=== PATIENT | male | born 1945 | race Two or more races ===

== ENCOUNTER → 2019-12-10 10:16 | Outpatient (BNVA) | payer MEDICARE, OTHER, SELFPAY | PROVIDERS: PCP Physician Assistant; Referring Provider Physician Assistant; Visit Provider Nurse Practitioner Family | DX: I48.91 Unspecified atrial fibrillation (principal); I10 Essential (primary) hypertension; I45.10 Unspecified right bundle-branch block; I42.9 Cardiomyopathy, unspecified | CPT/HCPCS: 99214 ==

== ENCOUNTER → 2020-01-06 08:03 | Outpatient (REF) | payer MEDICARE, OTHER, SELFPAY ==
--- NOTE | 2020-01-06 08:09 | ECG_ITS ---
Hook-up date: 2020-01-06 09:59:00 Duration: 23:47:00 Test Indications: UNSPEC. AFIB Medications: 636604 QRS complexes 28 Ventricular ectopics which represent <1 % of total QRS comp. * Supraventricular ectopics which represent % of total QRS comp. * Paced QRS complexs which represent % of total QRS comp. VENTRICULAR ECTOPY 28 Isolated 0 Bigeminal Cycles 0 Couplets 0 Runs 0 Beats in Runs * Beats LONGEST at * BPM at :: -- * Beats FASTEST at * BPM at :: -- SUPRAVENTRICULAR ECTOPY * Isolated * Couplets * Runs * Beats in Runs * Beats LONGEST at * BPM at :: -- * Beats FASTEST at * BPM at :: -- HEART RATES 35 MIN at 02:02:59 2020-01-07 76 AVG 178 MAX at 10:02:16 2020-01-06 LONGEST RR 2.2400 secs at 03:26:22 2020-01-07 S-T LEVELS Channel 1 - 128 mm at 09:59:00 2020-01-06 - 128 mm at 09:59:00 2020-01-06 Channel 2 - 128 mm at 09:59:00 2020-01-06 - 128 mm at 09:59:00 2020-01-06 Channel 3 - 128 mm at 02:91:81 -- - 128 mm at 02:91:81 Basic rhythm Atrial fibrillation No significant pauses Baseline BBB Rare Premature ventricular complexes Adequate rate control with avergae HR if 76 bpm No diary submitted Referred By: Madeleine Hernandez Overread By: IVANNA OSUNA MD
== END ==
LOC: HO.CARD 08:03
PROVIDERS: PCP Physician Assistant; Visit Provider Nurse Practitioner Family
DX: I48.91 Unspecified atrial fibrillation (principal)
CPT/HCPCS: 93225; 93226

== ENCOUNTER → 2020-01-24 09:59 | Outpatient (BNVA) | payer MEDICARE, OTHER, SELFPAY | PROVIDERS: PCP Physician Assistant; Referring Provider Physician Assistant; Visit Provider Nurse Practitioner Family | DX: I42.9 Cardiomyopathy, unspecified (principal); I45.10 Unspecified right bundle-branch block; I48.91 Unspecified atrial fibrillation; I10 Essential (primary) hypertension; Z79.01 Long term (current) use of anticoagulants; Z79.899 Other long term (current) drug therapy | CPT/HCPCS: 99212 ==

== ENCOUNTER → 2020-02-07 09:44 | Outpatient (REF) | payer MEDICARE, SELFPAY | LOC: HO.CARD 09:44 | PROVIDERS: Visit Provider Nurse Practitioner Family | DX: Z13.89 Encounter for screening for other disorder (principal) ==

== ENCOUNTER → 2020-02-18 09:07 | Outpatient (REF) | payer MEDICARE, SELFPAY ==
--- NOTE | 2020-02-18 09:30 | CA_ITS ---
Acquisition Time: 2020-02-18 09:38:43 Total Exercise Time: 00:02:00 Test Indications: afib Medications: see chart Protocol: LEXISCAN Max HR: 151 BPM 102% of Pred: 147 BPM Max BP: 190/068 mmHG Max Work Load: 1.0 METS Pharmacological stress test using lexiscan while sitting, pt tolerated well denies any anginal sx. EKG with a-fib and isolated PVC. Nuclear images to follow. Normotensive response to test. Test reviewed with Dr. Samuel Referred By: Madeleine Hernandez Overread By: Angel Luis Chand
--- NOTE | 2020-02-18 10:00 | NM_ITS ---
Lexiscan Myocardial perfusion study Indication: Cardiomyopathy, assess for coronary disease and ischemia Technique: The patient was brought in for a Lexiscan perfusion study on 02/18/2020 and was injected 0.4 mg of Lexiscan intravenously. Within a minute of this injection 25 mCi of sestamibi was given intravenously. Images were obtained using the SPECT gamma camera interlaced with the gating device. Images were obtained in supine position. Resting perfusion study was performed on 03/04/2020. Patient was administered 25 mCi of sestamibi intravenously at rest. Images were then obtained in supine position. Total DLP 62mGy-cm. Images were processed with the software and compared side to side in short axis, horizontal long axis and vertical long axis views. Findings: Raw acquisition was reviewed. The stress perfusion study showed diminished tracer uptake along the inferior wall mostly towards the basal aspect. With CT attenuation correction, there is improvement suggesting diaphragmatic artifact. The gated study shows diminished LV systolic function with calculated LVEF of 32%. LV cavity is dilated in size. The gated study shows globally diminished wall thickening and contraction of segments. Resting study shows diminished tracer uptake along the basal inferior wall improving with CT attenuation correction and hence suggesting diaphragmatic artifact. Gating at rest reveals globally diminished wall motion with ejection fraction at 32 %. The findings are consistent with no definite reversible or fixed perfusion defects. NM/NM cardiolite stress test Impression: 1. Myocardial perfusion imaging study shows likely normal myocardial perfusion. No definitive evidence of any ischemia or infarction. 2. Gated LVEF is diminished. 32% during stress and rest. 3. Transient ischemic dilatation not present but the LV cavity is dilated. EKG component of the test reported separately.
== END ==
LOC: HO.CARD 09:07
PROVIDERS: PCP Physician Assistant; Visit Provider Nurse Practitioner Family
DX: I48.91 Unspecified atrial fibrillation (principal); I45.10 Unspecified right bundle-branch block; I42.9 Cardiomyopathy, unspecified
CPT/HCPCS: 78452; 93017; A9500; J0280; J2785

== ENCOUNTER → 2021-06-30 13:03 | Outpatient (BNVA) | payer MEDICARE, SELFPAY | PROVIDERS: PCP Physician Assistant; Referring Provider Physician Assistant; Visit Provider Nurse Practitioner Family | DX: I42.9 Cardiomyopathy, unspecified (principal); I45.10 Unspecified right bundle-branch block; I48.21 Permanent atrial fibrillation; I10 Essential (primary) hypertension | CPT/HCPCS: 93005; 99212 ==

== ENCOUNTER → 2021-07-09 10:40 | Outpatient (REF) | payer MEDICARE, SELFPAY ==
--- NOTE | 2021-07-09 10:45 | HM_ITS ---
Conclusion: 1. Patient was monitored for total period of 2 days and 22 hours 2. Baseline with atrial fibrillation with average heart of 78 beats per minute, adequate rate control 3. Multiple pauses noted with longest pause of 2.78 seconds which is acceptable 4. Total of 2513 PVCs accounting for 0.76% accounting for occasional PVCs 5. One fifteen beat run of wide complex which is suggestive aberrant conduction 6. No patient reported events MTDD
== END ==
LOC: HO.CARD 10:40
PROVIDERS: Visit Provider Nurse Practitioner Family
DX: I45.10 Unspecified right bundle-branch block (principal); I48.21 Permanent atrial fibrillation
CPT/HCPCS: 93242

== ENCOUNTER 2022-08-07 11:53 | Inpatient (IN) | payer MEDICARE, OTHER, SELFPAY ==
[2022-08-07] VITALS (7 sets, daily range): BP systolic 101–186; BP diastolic 58–112; PULSE 71–115; RESP 13–20; TEMP 36.4–36.8; O2SAT 96–98; BMI 22.2
--- NOTE | 2022-08-07 | ECG_ITS ---
Test Reason : STROKE Blood Pressure : / mmHG Vent. Rate : 107 BPM Atrial Rate : 000 BPM P-R Int : 000 ms QRS Dur : 136 ms QT Int : 394 ms P-R-T Axes : 000 074 009 degrees QTc Int : 525 ms Atrial fibrillation with rapid ventricular response with premature ventricular or aberrantly conducted complexes Right bundle branch block Abnormal ECG When compared with ECG of 20-FEB-2011 17:04, Atrial fibrillation has replaced Sinus rhythm Right bundle branch block is now Present Referred By: Syeda Dobbs Electronically Signed By:Gustavo Nazario
--- NOTE | ~2022-08-07 | CT_ITS ---
EXAMINATION: CT ABDOMEN AND PELVIS WITHOUT CONTRAST CLINICAL INFORMATION: Evaluate pelvic mass COMPARISON: Previous CT of the abdomen and pelvis November 2021 and renal and bladder ultrasound August 2022 TECHNIQUE: Multidetector volumetric imaging was performed from the superior aspect of the liver through the pubic symphysis. Sagittal and coronal reformatted images were obtained on the technologist's workstation. This CT examination was performed using dose optimization techniques as appropriate, variously including the following: *Automated exposure control *Adjustment of mA and/or kV according to patient size (this includes techniques or standardized protocols for targeted exams where dose is matched to indication/reason for exam; i.e. extremities or head) *Use of iterative reconstruction technique DLP: 363 mGy-cm FINDINGS: LUNG BASES: The lung bases are clear. The heart is enlarged. There is a small pericardial effusion. LIVER, GALLBLADDER, AND BILIARY TREE: The liver is normal in size, shape, and attenuation. No focal hepatic lesion or biliary ductal dilatation is present. The gallbladder is unremarkable with no evidence of radiopaque gallstones, gallbladder wall thickening, or obvious pericholecystic inflammatory changes. PANCREAS: Unremarkable. SPLEEN: Unremarkable. ADRENAL GLANDS: Unremarkable. KIDNEYS AND URETERS: There is severe bilateral hydronephrosis and ureteral dilatation down to the bladder. This is new or increased from previous CT from 2018. There is a 4 mm stone lower pole of the right kidney. Question right UVJ versus bladder stones. No left ureteral stone is seen. BLADDER: There is a Stein catheter in the bladder. There is a small amount of fluid and air seen in the bladder probably related to Stein catheter placement. There is diffuse bladder wall thickening. There is stranding of the perivesicular fat. There are 2 calcifications in the right lateral bladder near the right UVJ region suggestive of bladder /right UVJ stones. The prostate gland is enlarged and protrudes into the base of the bladder. GASTROINTESTINAL TRACT: Diverticulosis of the colon. No evidence of diverticulitis. Small and large bowel is otherwise normal. ABDOMINAL WALL: Small bilateral inguinal hernias containing fat. Small umbilical hernia containing fat. LYMPH NODES: Normal. VASCULAR: Unremarkable. PELVIC VISCERA: The prostate gland is enlarged and protrudes into the base of the bladder. The prostate gland measures 5.4 x 5.8 cm in AP and transverse dimension. OSSEOUS STRUCTURES: There are degenerative changes of the spine. CT/CT abdomen pelvis wo IV con IMPRESSION: Severe bilateral hydronephrosis and ureteral dilatation down to the bladder. 4 mm stone in the lower pole of the right kidney. 2 right-sided bladder stones versus right UVJ stone measuring 4 and 5 mm. No left ureteral stone. Diffuse bladder wall thickening and stranding of the perivesicular fat. Infectious, inflammatory and neoplastic bladder process should be considered. Enlarged prostate gland protrudes into the base of the bladder. Diverticulosis. Fleischner guidelines were followed.
--- NOTE | ~2022-08-07 | US_ITS ---
EXAMINATION: US RETROPERITONEAL LIMITED (RENAL ONLY) CLINICAL INFORMATION: Acute kidney injury, evaluate for obstruction/hydronephrosis. COMPARISON: CT abdomen/pelvis 11/25/2017. TECHNIQUE: Real-time imaging of the kidneys. FINDINGS: RIGHT KIDNEY: 13 x 5.7 x 6 cm (SAG x AP x TRV). The kidney is normal in size, contour, and echogenicity. Renal cortical thickness is normal. No renal calculi or focal parenchymal lesions. Moderate to severe hydronephrosis. LEFT KIDNEY: 12.4 x 6 x 5.7 cm (SAG x AP x TRV). The kidney is normal in size, contour, and echogenicity. Renal cortical thickness is normal. No renal calculi or hydronephrosis. There is a 1.1 cm simple cyst in the midpole, for which no imaging follow-up is recommended. OTHER FINDINGS: Urinary bladder is not well evaluated due to underdistention, Stein catheter in place. There is a 4.7 x 5 x 5.6 cm mass posterior to the urinary bladder. US/US renal BI IMPRESSION: 1. Moderate to severe right-sided hydronephrosis. 2. There is a 5.6 cm mass posterior to the urinary bladder, which is not well evaluated on this examination. The prostate gland is not confidentially identified as a separate structure in this examination, and the mass could represent an enlarged prostate. Recommend further evaluation with a CT abdomen/pelvis.
--- NOTE | ~2022-08-07 | FL_ITS ---
EXAMINATION: XR FLUOROSCOPY WITH IMAGES CLINICAL INFORMATION: Stent placement COMPARISON: CT abdomen and pelvis 08/08/2022, renal ultrasound 08/07/2022. TECHNIQUE: Fluoroscopy Supervised By: Dr. Nash Rivera. Fluoroscopy Time: 2 minutes 10 seconds. Cumulative Dose: 25.21 mGy. Images: 1. FINDINGS: There is a guidewire in the right urinary tract with proximal end overlying the collecting system. FL/FL guidance in OR IMPRESSION: Fluoroscopy for urologic procedure.
--- NOTE | ~2022-08-07 | CT_ITS ---
EXAMINATION: CT ABDOMEN AND PELVIS WITHOUT CONTRAST CLINICAL INFORMATION: Hydronephrosis COMPARISON: Renal ultrasound August [address] of the abdomen and pelvis August 2022 TECHNIQUE: Multidetector volumetric imaging was performed from the superior aspect of the liver through the pubic symphysis. Sagittal and coronal reformatted images were obtained on the technologist's workstation. This CT examination was performed using dose optimization techniques as appropriate, variously including the following: *Automated exposure control *Adjustment of mA and/or kV according to patient size (this includes techniques or standardized protocols for targeted exams where dose is matched to indication/reason for exam; i.e. extremities or head) *Use of iterative reconstruction technique DLP: 411 mGy-cm FINDINGS: LUNG BASES: The lung bases are clear. Enlarged heart and small pericardial effusion. LIVER, GALLBLADDER, AND BILIARY TREE: The liver is normal in size, shape, and attenuation. No focal hepatic lesion or biliary ductal dilatation is present. The gallbladder contracted. PANCREAS: Unremarkable. SPLEEN: Unremarkable. ADRENAL GLANDS: Unremarkable. KIDNEYS AND URETERS: New right internal ureteral stent in satisfactory position. Interval decrease in right hydronephrosis and ureteral dilatation. 4 mm stone in the right lower pole. Moderate left hydronephrosis and ureteral dilatation down to the bladder. Is similar to previous exam. BLADDER: Stein catheter in the bladder. Small amount of fluid and air in the bladder. Diffuse bladder wall thickening. Stranding of the perivesicular fat. New 3 mm calcification in the left lower lateral probably representing a stone as opposed to bladder wall calcification axial image 67 series 2.. Enlarged prostate gland that protrudes into the base of the bladder. GASTROINTESTINAL TRACT: Constipation. Mild diverticulosis. No evidence of diverticulitis. Normal appendix. Normal small bowel. Normal stomach. ABDOMINAL WALL: Small bilateral inguinal hernias containing fat. LYMPH NODES: Small retroperitoneal lymph nodes in the abdomen and pelvis. No enlarged lymph nodes. No ascites. VASCULAR: Atherosclerotic disease. No aneurysm. PELVIC VISCERA: The prostate gland is enlarged and protrudes into the base of the bladder. OSSEOUS STRUCTURES: Degenerative changes of the spine and hip joints. No fracture or bone lesion. CT/CT abdomen pelvis wo IV con IMPRESSION: New right internal ureteral stent in satisfactory position. Interval decrease in right hydronephrosis and ureteral dilatation. 4 mm right lower pole renal stone. Stable moderate left hydronephrosis and ureteral dilatation down to the bladder. Stein catheter in the bladder. Diffuse bladder wall thickening and stranding of the perivesicular fat. Enlarged prostate gland that protrudes into the base of the bladder. New 3 mm calcification in the left lower lateral bladder probably representing a stone as opposed to bladder wall calcification. Constipation and diverticulosis. Fleischner guidelines were followed.
--- NOTE | ~2022-08-07 | MR_ITS ---
EXAMINATION: MR BRAIN WITHOUT CONTRAST CLINICAL INFORMATION: Aphasia. Rule out stroke. COMPARISON: CT dated 08/07/2022. TECHNIQUE: Multiplanar, multisequence imaging of the brain was performed without contrast. FINDINGS: There are two small infarcts in the inferior left occipital lobe. Cystic encephalomalacia lined with chronic hemosiderin staining and adjacent gliosis also noted in the inferomedial left occipital lobe due to a chronic infarct. There are scattered chronic microhemorrhages in the deep hall matter structures and periventricular white matter. The ventricles are normal in size. No mass effect or midline shift is seen. Moderate small vessel ischemic changes noted in the cerebral white matter. There are scattered chronic lacunar infarcts in the deep hall matter structures and in the external capsules. No extra-axial fluid collections are seen. The brainstem and cerebellum are normal. The craniovertebral junction, marrow signal, and midline structures are normal. The major intracranial flow voids at the level of the [place] are preserved. The dural venous sinus flow voids are maintained. The mastoid air cells are well aerated. Mild ethmoid sinus mucosal thickening noted. MR/MR head/brain wo con IMPRESSION: Two small acute infarcts in the inferior left occipital lobe. Cystic encephalomalacia in the left occipital lobe with peripheral hemosiderin staining and gliosis. Scattered chronic lacunar infarcts in the deep hall matter structures and external capsules. Moderate chronic white matter microangiopathy.
--- NOTE | ~2022-08-07 | US_ITS ---
EXAMINATION: US RETROPERITONEAL LIMITED (RENAL ONLY) CLINICAL INFORMATION: Persistent elevation in creatinine. Follow-up hydronephrosis COMPARISON: CT abdomen and pelvis 08/08/2022. Renal ultrasound 08/07/2022. Fluoroscopy exam 08/08/2022 TECHNIQUE: Real-time imaging of the kidneys. FINDINGS: RIGHT KIDNEY: 11.9 x 5.7 x 7.0 cm (SAG x AP x TRV). The kidney is normal in size, contour, and echogenicity. Renal cortical thickness is normal. There is still moderate right hydronephrosis. This is minimally improved from prior exam. There is a stent seen in the right renal collecting system. Right renal stone in the lower pole not well appreciated. LEFT KIDNEY: 12.7 x 6.0 x 5.4 cm (SAG x AP x TRV). The kidney is normal in size, contour, and echogenicity. Renal cortical thickness is normal. There is still severe left hydronephrosis. There is dilatation of the visualized left proximal ureter. There is a small cyst in the lateral midpole. No renal calculi. US/US renal BI IMPRESSION: Persistent moderate right hydronephrosis minimally improved from previous exams. Stent seen in the right renal collecting system. Severe left hydronephrosis unchanged.
--- NOTE | ~2022-08-07 | CT_ITS ---
EXAMINATION: CT HEAD WITHOUT CONTRAST CLINICAL INFORMATION: Right MCA stroke. Question expressive aphasia. COMPARISON: None available. TECHNIQUE: Contiguous axial imaging was performed from the skull base to vertex without intravenous administration of contrast. This CT examination was performed using dose optimization techniques as appropriate, variously including the following: *Automated exposure control *Adjustment of mA and/or kV according to patient size (this includes techniques or standardized protocols for targeted exams where dose is matched to indication/reason for exam; i.e. extremities or head) *Use of iterative reconstruction technique DLP: 538 mGy-cm FINDINGS: No acute intracranial hemorrhage is identified. No significant mass effect or midline shift structure shift. No abnormal extra-axial fluid collection is seen. There is a region of encephalomalacia within the left occipital lobe from previous infarct. There is diffuse periventricular white matter low density consistent with microangiopathy. Lacunar infarcts are seen bilaterally within the anterior limbs of both the internal and external capsule. Calvarium intact. Visualized paranasal sinuses demonstrate some mucosal thickening without bony destruction or air-fluid levels. Pterygoid plates intact. Temporomandibular joints unremarkable. CT/CT head/brain wo IV con IMPRESSION: Findings of old ischemic changes as described above with no definite new loss of hall-white matter interface or mass effect.
--- NOTE | 2022-08-07 12:11 | ED.NEUROSD ---
HPI - Neuro Symptoms/Deficit General Chief Complaint: General Medical Stated Complaint: Stroke? Slurred speech Time Seen by Provider: 08/07/22 12:04 Source: family Mode of arrival: ambulatory Limitations: no limitations History of Present Illness HPI Narrative: Patient history of hypertension , AFib not on AC otherwise healthy drives car noticed to have expressive aphasia since 08/05 without any motor deficit patient was able to drive car today son visited him today and noticed and brought him to the ER patient has difficulty in finding the words no headache no head injury no nausea no vomiting no vision loss no history of CVA in the past Related Data Previous Rx's Medication Instructions Recorded blood pressure test kit-medium #1 ea 06/16/21 lisinopril 20 1 tab PO DAILY #90 tabs 03/29/22 mg-hydrochlorothiazide 12.5 mg tablet carvedilol 25 mg tablet 25 mg PO BID #180 tabs 05/12/22 mirtazapine 15 mg tablet 15 mg PO BEDTIME 30 days #30 tabs 05/12/22 Allergies Allergy/AdvReac Type Severity Reaction Status Date / Time No Known Allergies Allergy Verified 05/12/22 11:42 Review of Systems Review of Systems: Yes all other systems are reviewed and are negative PMFSH Past Medical History Medical History Afib Cardiomyopathy RBBB Surgical History No pertinent past surgical history Family History Family History Father No problems noted. Mother Cancer Sister Cancer Other Mental health disorder Social History Social History Housing: Condominium Alcohol intake: unknown Patient Tobacco Use Status: Current someday Tobacco user Cigarettes Per Day: 4 Smoked in Last 30 Days: No e-Cigarette/Vaping Use: Never Used Use of substances other than those prescribed or required for medical reasons: Unknown Advance Directives: No Advance Directives Information Provided: No service: No Current occupational status: retired Cognitive needs: No Hearing needs: No Vision needs: No Physical Exam Vital Signs: Vital Signs: Last Vital Signs Temp 98.2 F 08/07/22 14:37 Pulse 97 08/07/22 14:37 Resp 13 08/07/22 14:37 BP 149/93 H 08/07/22 14:37 Pulse Ox 97 08/07/22 14:37 O2 Del Method Room Air 08/07/22 14:37 BMI result Body Mass Index 22.2 Appearance: Alert. Oriented X3. No acute distress. Eyes: PERRLA, No Nystagmus ENT: Pharynx normal. Oral Mucosa moist Neck: Normal inspection. Neck supple. CVS: Normal heart rate and rhythm. Pulses normal. Respiratory: No respiratory distress. Equal air entry bilateral, no wheezing/rales/rhonchi Abdomen: Soft and nontender. Bowel sounds are present, no mass palpable, no CVA tenderness Skin: Skin warm and dry. Normal skin color. Normal skin turgor. Extremities: No lower extremity edema. No calf tenderness Neuro: Oriented X 3. No motor deficit. No sensory deficit.No cerebellar signs , cranial nerves II-XII intact expressive aphasia++ Medications Administered Discontinued Medications Generic Name Dose Route Start Last Admin Trade Name Freq PRN Reason Stop Dose Admin Aspirin 81 mg 08/07/22 14:58 08/07/22 15:16 Aspirin 81 Mg Tab.Chew PO 08/07/22 14:59 81 mg ONCE ONE Administration Sodium Chloride 1,000 mls @ 999 mls/hr 08/07/22 13:01 08/07/22 14:25 Ns IV 08/07/22 14:01 Infused .Q1H1M ONE Infusion Medical Decision Making Medical Decision Making [facility] Narrative: Patient with history of prostate enlargement noted to have acute elevation of creatinine likely from obstruction bladder scan showed more than 700 cc of urine Stein catheter was placed. 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 08/07/22 12:24 08/07/22 12:24 Labs: Lab Results 08/07/22 08/07/22 08/07/22 Range/Units 12:24 12:24 12:24 WBC 8.7 (4.8-10.8) X10*3/uL RBC 3.88 L (4.60-5.80) X10*6/uL Hgb 10.8 L (14.0-18.0) g/dl Hct 33.7 L (42.0-52.0) % MCV 86.9 (80.0-98.0) fL MCH 27.8 (27.0-33.0) pg MCHC 32.0 (31.0-36.0) g/dl RDW 14.1 (11.0-16.0) % Plt Count 230 (160-400) X10*3/uL MPV 9.9 (9.4-12.4) fL Immature Gran % (Auto) 0.3 (0.0-0.4) % Neut % (Auto) 81.4 H (45-73) % Lymph % (Auto) 11.3 L (20-40) % [place] % (Auto) 6.1 (2-11) % Eos % (Auto) 0.7 (0-4) % Baso % (Auto) 0.2 (0-2) % Lymph # (Auto) 1.0 L (1.2-4.9) X10*3/uL [place] # (Auto) 0.5 (0.1-1.2) X10*3/uL Eos # (Auto) 0.1 (0.0-0.4) X10*3/uL Baso # (Auto) 0.0 (0.0-0.2) X10*3/uL Abs Immat Gran (auto) 0.03 (0.00-0.03) X10*3/uL Absolute Neuts (auto) 7.1 (2.0-8.3) x10*3/uL Absolute Nucleated RBC 0.000 (0.0-0.012) X10*3/uL Nucleated RBC % (auto) 0.0 (0.0-0.2) /100WBC PT 13.4 H (10.0-13.1) SEC INR 1.2 H (0.9-1.1) Sodium 144 (135-145) mmol/L Potassium 4.9 (3.3-5.1) mmol/L Chloride 106 (96-108) mmol/L Carbon Dioxide 28 (22-29) mmol/L Anion Gap 15 (12-20) BUN 32 H (9-16) mg/dL Creatinine 2.35 H (0.5-1.4) mg/dL Estim Creat Clear Calc 23.6 Estimated GFR 27 Random Glucose 181 H (60-115) mg/dL Calcium 8.8 (8.4-10.2) mg/dL Magnesium 1.7 (1.6-2.6) mg/dL Total Bilirubin 0.9 (0.0-1.0) mg/dL AST 12 (5-37) U/L ALT 7 (0-40) U/L Alkaline Phosphatase 87 (39-117) U/L Total Protein 7.2 (6.5-8.0) g/dL Albumin 4.2 (3.5-5.0) g/dL Independent Interpretation I performed an independent interpretation of an: EKG Interpretation: Atrial fibrillation with ventricular rate 107 occasional PVCs no acute ischemic changes Radiology Impression Discussion of test interpretation with radiology: I have reviewed the radiologist's reading. Radiologist Impression: No acute intracranial hemorrhage is identified. No significant mass effect or midline shift structure shift. No abnormal extra-axial fluid collection is seen. There is a region of encephalomalacia within the left occipital lobe from previous infarct. There is diffuse periventricular white matter low density consistent with microangiopathy. Lacunar infarcts are seen bilaterally within the anterior limbs of both the internal and external capsule. Calvarium intact. Visualized paranasal sinuses demonstrate some mucosal thickening without bony destruction or air-fluid levels. Pterygoid plates intact. Temporomandibular joints unremarkable. ? CT/CT head/brain wo IV con IMPRESSION: Findings of old ischemic changes as described above with no definite new loss of hall-white matter interface or mass effect. NIH Stroke Scale Internal: Initial- Upon Arrival Level of Consciousness: Alert Level of Consciousness Questions: Answers both questions correctly Level of Consciousness Commands: Performs both tasks correctly Best Gaze: Normal Visual: No visual loss Facial Palsy: Normal Motor Arm (Right): No drift Motor Arm (Left): No drift Motor Leg (Right): No drift Motor Leg (Left): No drift Limb Ataxia: Absent Sensory: Normal Best Language: Mild to moderate aphasia Dysarthia: Normal Extinction and Inattention: No abnormality Score: 1 Discharge Plan Discharge Clinical Impression: Expressive aphasia, Acute renal failure, Afib Patient Disposition: Admitted As Inpatient
[2022-08-07 12:28] LABS: MANUAL DIFF FLAG NO
[2022-08-07 12:29] LABS: Basophils Percent Auto 0.2 % (0-2); Eosinophils Absolute Auto 0.1 X10*3/uL (0.0-0.4); Eosinophils Percent Auto 0.7 % (0-4); Hematocrit 33.7 % (42.0-52.0); Hemoglobin 10.8 g/dl (14.0-18.0); Imm Gran Abs Auto 0.03 X10*3/uL (0.00-0.03); Imm Gran Pct Auto 0.3 % (0.0-0.4); Lymphocytes Percent Auto 11.3 % (20-40); Mean Corpuscular Hemoglobin 27.8 pg (27.0-33.0); Mean Corpuscular Volume 86.9 fL (80.0-98.0); Mean Platelet Volume 9.9 fL (9.4-12.4); Monocytes Absolute Auto 0.5 X10*3/uL (0.1-1.2); Monocytes Percent Auto 6.1 % (2-11); Neutrophils Absolute Auto 7.1 x10*3/uL (2.0-8.3); Neutrophils Percent Auto 81.4 % (45-73); Platelet Count 230 X10*3/uL (160-400); Red Blood Count 3.88 X10*6/uL (4.60-5.80); Red Cell Distribution Width 14.1 % (11.0-16.0); White Blood Count 8.7 X10*3/uL (4.8-10.8)
--- NOTE | 2022-08-07 12:33 | PC.NURSE ---
patient awake/alert- pt unable to answer this nurses questions when asked about history or pain, pt was able to follow commands lift/hold all extremities, pt passed swallow eval, iv inserted, labs drawn, call jimenez within reach, will continue to monitor.
[2022-08-07 12:34] LABS: INTERNATIONAL NORM RATIO 1.2 (0.9-1.1); Prothrombin Time 13.4 SEC (10.0-13.1)
[2022-08-07 12:48] LABS: Alanine Aminotransferase 7 U/L (0-40); Albumin Level 4.2 g/dL (3.5-5.0); Alkaline Phosphatase 87 U/L (39-117); Anion Gap 15 (12-20); Aspartate Amino Transferase 12 U/L (5-37); Bilirubin Total 0.9 mg/dL (0.0-1.0); Blood Urea Nitrogen 32 mg/dL (9-16); Calcium 8.8 mg/dL (8.4-10.2); Carbon Dioxide 28 mmol/L (22-29); Chloride 106 mmol/L (96-108); Creatinine Clr Calc Pharmacy 23.6; Estimated Glomerular Filt Rate 27; Glucose Random 181 mg/dL (60-115); Magnesium 1.7 mg/dL (1.6-2.6); Potassium 4.9 mmol/L (3.3-5.1); Sodium 144 mmol/L (135-145); Total Protein 7.2 g/dL (6.5-8.0)
[2022-08-07] MEDS: 0.9 % Sodium Chloride 1,000 ML 999 ML IV (13:04)
--- NOTE | 2022-08-07 13:07 | PC.NURSE ---
iv fluids started per order, making department preparer afib in 90s, will continue to monitor
--- NOTE | 2022-08-07 14:41 | PC.NURSE ---
bladder scan being performed by tech
[2022-08-07] MEDS: Aspirin 81 MG TAB.CHEW PO (15:16)
--- NOTE | 2022-08-07 15:26 | PHA.MEDREC ---
Pharmacy Consult ? Medication Reconciliation Pharmacy has completed the medication reconciliation. Utilized solution director services. Spoke to patient to confirm meds, however patient was a poor historian and wasn't able to speak in complete sentences. Patient was unable to name meds and according to solution director, kept mentioning that he took some meds once a day, and one medication after 7pm. Patient's family at bedside did not know what medications he was on. Because of this, confirmed meds based off claim history and according to a PCP visit with DR. Francis on 05/12/22, the patient is also supposed to be on Xarelto 20mg. However, when contacting the patient's pharmacy, they state the prescription was sent over, but never picked up.
--- NOTE | 2022-08-07 15:35 | PC.NURSE ---
mcgrath cath inserted 16F, urine obtained, family at bedside
--- NOTE | 2022-08-07 15:37 | P.HPHOSP_ITS ---
History of Present Illness Date of Service: 08/07/22 Chief Complaint: Speech problem, confusion A 77 years old male with PMH of HTN, Afib not on AC unclear why who presents to the hospital by family for reported speech problem and change in mental status. The son reports that he see his dad once a week but the patient was at care home visiting his other brother in along with his other brother. He tanja ve there and there was no complaints or concerns. Starting yesterday morning his brother reports that his face looked different and he was finding difficulties finding words and felt little confused. The patient denies any of these symptoms and thinks he is at baseline. denies fever, chills, headache, double vision, focal weakness or numbness. In ED a CT, CTA were done showing. Bladder scan showed urine retention Kidney function test showed elevated Cr, normal baseline 3 years ago Admitted for further eval. Review of Systems Review of Systems: No fever, chills or weakness No chest pain, palpitation No shortness of breath or coughing No abdominal pain, nausea or vomiting No urinary symptoms No any rash or wounds PMFSH Medical History Afib Cardiomyopathy RBBB Family History Father No problems noted. Mother Cancer Sister Cancer Other Mental health disorder Surgical History No pertinent past surgical history Social History Housing: Condominium Alcohol intake: unknown Patient Tobacco Use Status: Current someday Tobacco user Cigarettes Per Day: 4 Smoked in Last 30 Days: No e-Cigarette/Vaping Use: Never Used Use of substances other than those prescribed or required for medical reasons: Unknown Advance Directives: No Advance Directives Information Provided: No service: No Current occupational status: retired Cognitive needs: No Hearing needs: No Vision needs: No Meds Allergies Allergy/AdvReac Type Severity Reaction Status Date / Time No Known Allergies Allergy Verified 05/12/22 11:42 Physical Exam Vital Signs and Narrative: Vital Signs: Last Vital Signs Temp 98.2 F 08/07/22 14:37 Pulse 97 08/07/22 14:37 Resp 13 08/07/22 14:37 BP 149/93 H 08/07/22 14:37 Pulse Ox 97 08/07/22 14:37 O2 Del Method Room Air 08/07/22 14:37 BMI result Body Mass Index 22.2 Const: Other: Constitutional : Awake, interactive, not in distress Neck : Normal inspection, Supple Cardiovascular : RRR, no JVP, no lower extremity edema Respiratory : good bilateral air entry, no crackles, wheezes or rhonchi Gastrointestinal: soft, lax, Normal bowel sounds, Non tender Skin : Warm, Dry Neurological : Alert & oriented x2, No focal deficit , CN 2-12 within normal, speech is coherent but pauses to pick right word on occasions Results Labs 08/07/22 12:24 08/07/22 12:24 Labs: Laboratory Results - last 24 hr 08/07/22 08/07/22 08/07/22 12:24 12:24 12:24 MCV 86.9 MCH 27.8 MCHC 32.0 RDW 14.1 Plt Count 230 MPV 9.9 Immature Gran % (Auto) 0.3 Neut % (Auto) 81.4 H Lymph % (Auto) 11.3 L [place] % (Auto) 6.1 Eos % (Auto) 0.7 Baso % (Auto) 0.2 Lymph # (Auto) 1.0 L [place] # (Auto) 0.5 Eos # (Auto) 0.1 Baso # (Auto) 0.0 Abs Immat Gran (auto) 0.03 Absolute Neuts (auto) 7.1 Absolute Nucleated RBC 0.000 Nucleated RBC % (auto) 0.0 PT 13.4 H INR 1.2 H Anion Gap 15 Estim Creat Clear Calc 23.6 Estimated GFR 27 Random Glucose 181 H Calcium 8.8 Magnesium 1.7 Total Bilirubin 0.9 AST 12 ALT 7 Alkaline Phosphatase 87 Total Protein 7.2 Albumin 4.2 Imaging Radiologist's Impressions: Impressions Head CT 08/07/22 13:51 IMPRESSION: Findings of old ischemic changes as described above with no definite new loss of hall-white matter interface or mass effect. Assessment and Plan (1) Urine retention: Status: Acute (2) Elevated serum creatinine: Status: Acute (3) Speech problem: Status: Acute Plan A 77 years old male with PMH of HTN, Afib not on AC unclear why who presents to the hospital by family for reported speech problem and change in mental status. Speech problem CT\CTA showing old ischemic changes but no acute findings concern over possible stroke ASA in ED, to continue Keep on Tele further recommendations based on CT findings Neurology eval Urine retention 700 cc on scan Foleys placed in ED check PSA Elevated Creatinine 2/2 Acute kidney injury vs CKD check renal US hold nephrotoxic meds Nephrology for eval Metabolic encephalopathy seems mild could be related to urine retention check UA reorientation Afib not on AC continue Carvedilol discuss need of AC to prevent strokes DVT PPx Heparin The patient will need 2 overnight hospital stay for eval of abnormal kidney function, speech problem pending specialist eval and possible MRI Time Spent With Patient Time: Total time managing care of this patient today ____ minutes. Quality Stroke Does the patient have a stroke diagnosis?: No VTE Prior VTE?: No VTE Risk Level:: Medical - moderate - high VTE Device Contraindication: Treatment Not Indicated VTE Drug Contraindication: N/A - Med Ordered
[2022-08-07 16:04] LABS: Appearance Urine Cloudy; Color Urine Yellow; Glucose Urine UA Negative (Negative); Leukocyte Esterase Urine Large (3+) (Negative); Nitrite Urine Negative (Negative); PH 6.5 (5.0-9.0); UMIC TRIGGER UACC YES; Urine Blood Large (3+) (Negative); Urine Ketones Negative (Negative); Urine Protein Negative (Neg-Trace)
--- NOTE | 2022-08-07 16:05 | MHC.EDTECH ---
THIS PCT ASSUMED CARE OF PT AT 1500 ,EKG TAKEN AND WAS READ BY PROVIDER .
[2022-08-07 16:10] LABS: Bacteria Urine 4+ (None Seen); Hyaline Casts Urine 0-2 /LPF (0-2); RBC Urine >20 /HPF (0-2); Squamous Epithelial Cell Urine 0-2 /HPF (0-2); UACC Culture Trigger YES; WBC Urine >50 /HPF (0-5)
[2022-08-07] MEDS: 0.9 % Sodium Chloride Flush 3 ML SYRINGE IVFLUSH (16:30)
[2022-08-07] MEDS: Enoxaparin Sodium 30 MG/0.3 ML SYRINGE SUBCUT (16:30)
--- NOTE | 2022-08-07 16:31 | PC.NURSE ---
pt medicated per order
--- NOTE | 2022-08-07 17:06 | MHC.EDTECH ---
PT WAS INCONIENT OF URINE ,CARE GIVEN ,BEDDING CHANGE ,VITALS SIGN TAKEN ,PT VERY CONFUSED ,COVERING RN BOYD IS AWARE OF PT HIGH BP AND HHR ,ALSO OF BLOODY URINE AND PAIN IN ABD ,PT 2 NIECE AT BEDSIDE ,OUT PUT FROM US IS 1450 CC .
--- NOTE | 2022-08-07 17:35 | PC.NURSE ---
Float RN Pt noted with hematuria in mcgrath drainage bag, with 1500ml urine. Pt reporting low abd pain. Bladder scanned to ensure drainage, nothing in bladder. tachy in 120-130s. Mcgrath readjusted, pt reporting decreased pain with HR down to 100-110s. Family remains by side. RN to RN to floor.
--- NOTE | 2022-08-07 19:08 | PC.NURSE ---
admitted from ED to 454, alert, restless, aphasia , has some difficulties to find words, incontinent with loose BM, Stein cath draining bloody urine , received report from the ED nurse that bloody urine started in ED . DR Sow covering for DR Dobbs was notified
[2022-08-07] MEDS: Mirtazapine 15 MG TABLET PO (20:19)
[2022-08-07] MEDS: carvediloL 25 MG TABLET PO (20:19)
[2022-08-07] MEDS: Atorvastatin Calcium 40 MG TABLET PO (20:19)
[2022-08-07] MEDS: Acetaminophen 325 MG TABLET 650 MG PO (20:19)
[2022-08-07 21:23] LABS: Creatinine Urine 47.79 mg/dL
[2022-08-07 23:50] LABS: Hematocrit 31.4 % (42.0-52.0); Hemoglobin 10.3 g/dl (14.0-18.0)
[2022-08-08] VITALS (13 sets, daily range): BP systolic 121–156; BP diastolic 63–89; PULSE 47–91; RESP 16–20; TEMP 36.1–36.7; O2SAT 96–100
[2022-08-08] MEDS: 0.9 % Sodium Chloride Flush 3 ML SYRINGE IVFLUSH ×3 (00:21→19:56)
[2022-08-08 06:43] LABS: Anion Gap 14 (12-20); Blood Urea Nitrogen 30 mg/dL (9-16); Calcium 8.3 mg/dL (8.4-10.2); Carbon Dioxide 22 mmol/L (22-29); Chloride 109 mmol/L (96-108); Cholesterol 107 mg/dL; Estimated Glomerular Filt Rate 34; Glucose Random 116 mg/dL (60-115); HDL Cholesterol 27 mg/dL; LDL Cholesterol Calculated 69 mg/dl; Sodium 141 mmol/L (135-145); Triglycerides 59 mg/dL
[2022-08-08 06:51] LABS: Hematocrit 32.9 % (42.0-52.0); Hemoglobin 10.9 g/dl (14.0-18.0); Mean Corpuscular HGB Conc 33.1 g/dl (31.0-36.0); Mean Corpuscular Hemoglobin 28.8 pg (27.0-33.0); Mean Platelet Volume 10.6 fL (9.4-12.4); Platelet Count 256 X10*3/uL (160-400); Red Blood Count 3.78 X10*6/uL (4.60-5.80); Red Cell Distribution Width 14.1 % (11.0-16.0); White Blood Count 10.1 X10*3/uL (4.8-10.8)
--- NOTE | 2022-08-08 07:42 | P.CNUR_ITS ---
History of Present Illness Consult details Consult date: 08/08/22 Narrative: right hydroureteronephrosis 77-year-old male event for changes in mental status and question of stroke imaging shows right hydroureteronephrosis initial creatinine 2.35 found to have urinary retention with 700 cc and bladder Stein catheter placed based on imaging findings likely large prostate with J hooking obstructing of right ureter recommends cystoscopy, right retrograde, right stent placement with Stein catheter Review of Systems Constitutional: Constitutional: Reports as per HPI and Reports no additional constitutional complaints Cardiovascular: Cardiovascular: Reports as per HPI and Reports no additional cardiovascular complaints Respiratory: Respiratory: Reports as per HPI and Reports no additional respiratory complaints Gastrointestinal: Gastrointestinal: Reports as per HPI and Reports no additional gastrointestinal complaints Genitourinary: Genitourinary: Reports as per HPI Musculoskeletal: Musculoskeletal: Reports no additional musculoskeletal complaints and Reports as per HPI Neurologic: Reports system reviewed and no additional complaints, except as documented and Reports as per HPI PMFSH Past Medical History Medical History Afib Cardiomyopathy RBBB Family History Family History Father No problems noted. Mother Cancer Sister Cancer Other Mental health disorder Surgical History Surgical History No pertinent past surgical history Social History Social History Household Members: None Housing: Apartment Do you presently have visiting nurse or other home services: No Alcohol intake: unknown Patient Tobacco Use Status: Never used Tobacco Cigarettes Per Day: 4 e-Cigarette/Vaping Use: Never Used service: No Current occupational status: retired Cognitive needs: No Hearing needs: No Vision needs: No Meds Allergies Allergy/AdvReac Type Severity Reaction Status Date / Time No Known Allergies Allergy Verified 05/12/22 11:42 Active Medications: Current Medications Acetaminophen (Acetaminophen 325 Mg Tablet) 650 mg PO Q6H PRN PRN Reason: Pain, Mild (Pain Scale 1-3) Last Admin: 08/07/22 20:19 Dose: 650 mg Aspirin (Aspirin Enteric Coated 81 Mg Tablet.Dr) 81 mg PO DAILY [facility] Atorvastatin Calcium (Atorvastatin Calcium 40 Mg Tablet) 40 mg PO BEDTIME [facility] Last Admin: 08/07/22 20:19 Dose: 40 mg Carvedilol (Carvedilol 25 Mg Tablet) 25 mg PO BID [facility]; Protocol Last Admin: 08/07/22 20:19 Dose: 25 mg Mirtazapine (Mirtazapine 15 Mg Tablet) 15 mg PO BEDTIME [facility] Last Admin: 08/07/22 20:19 Dose: 15 mg Ondansetron HCl (Ondansetron Hcl 4 Mg/2 Ml Vial) 4 mg IVPUSH Q8H PRN PRN Reason: Nausea and Vomiting Sodium Chloride (0.9 % Sodium Chloride Flush 3 Ml Syringe) 3 ml IVFLUSH QSHIFT [facility] Last Admin: 08/08/22 00:21 Dose: 3 ml Physical Exam Vital Signs: Vital Signs: Last Vital Signs Temp 97.6 F 08/08/22 07:23 Pulse 63 08/08/22 07:23 Resp 20 08/08/22 07:23 BP 121/63 08/08/22 07:23 Pulse Ox 97 08/08/22 07:23 O2 Del Method Room Air 08/08/22 07:23 BMI result Body Mass Index 22.2 Const: General: cooperative, healthy appearing, comfortable and no acute distress Orientation/consciousness: patient oriented x3 HEENT: Face and sinus: Yes normal facial exam Mouth: moist mucous membranes Neck: Neck: Yes normal visual inspection, Yes full ROM and Yes trachea midline Chest: Chest palpation & inspection: normal inspection of the chest Resp: Effort & Inspection: normal respiratory effort, able to speak in complete sentences and no respiratory distress GI: Inspection: Yes normal to inspection Back/Spine/Pelvis: Cervical Spine: normal cervical lordosis Thoracic/Lumbar Spine: thoracic and lumbar spine normal to inspection Skin: General skin exam: no rashes or lesions noted Neuro: General: patient oriented x3, tone normal and moves all extremities Extrem: General: Yes normal to inspection and Yes capillary refill normal Results Labs 08/08/22 05:42 08/08/22 05:42 Labs: Abnormal lab results 08/07/22 08/07/22 08/07/22 Range/Units 12:24 12:24 12:24 RBC 3.88 L (4.60-5.80) X10*6/uL Hgb 10.8 L (14.0-18.0) g/dl Hct 33.7 L (42.0-52.0) % Neut % (Auto) 81.4 H (45-73) % Lymph % (Auto) 11.3 L (20-40) % Lymph # (Auto) 1.0 L (1.2-4.9) X10*3/uL PT 13.4 H (10.0-13.1) SEC INR 1.2 H (0.9-1.1) Chloride (96-108) mmol/L BUN 32 H (9-16) mg/dL Creatinine 2.35 H (0.5-1.4) mg/dL Random Glucose 181 H (60-115) mg/dL Calcium (8.4-10.2) mg/dL Urine Blood (Negative) Ur Leukocyte Esterase (Negative) Urine RBC (0-2) /HPF Urine WBC (0-5) /HPF 08/07/22 08/07/22 08/08/22 Range/Units 15:35 23:45 05:42 RBC 3.78 L (4.60-5.80) X10*6/uL Hgb 10.3 L 10.9 L (14.0-18.0) g/dl Hct 31.4 L 32.9 L (42.0-52.0) % Neut % (Auto) (45-73) % Lymph % (Auto) (20-40) % Lymph # (Auto) (1.2-4.9) X10*3/uL PT (10.0-13.1) SEC INR (0.9-1.1) Chloride (96-108) mmol/L BUN (9-16) mg/dL Creatinine (0.5-1.4) mg/dL Random Glucose (60-115) mg/dL Calcium (8.4-10.2) mg/dL Urine Blood Large (3+) H (Negative) Ur Leukocyte Esterase Large (3+) H (Negative) Urine RBC >20 H (0-2) /HPF Urine WBC >50 H (0-5) /HPF 08/08/22 Range/Units 05:42 RBC (4.60-5.80) X10*6/uL Hgb (14.0-18.0) g/dl Hct (42.0-52.0) % Neut % (Auto) (45-73) % Lymph % (Auto) (20-40) % Lymph # (Auto) (1.2-4.9) X10*3/uL PT (10.0-13.1) SEC INR (0.9-1.1) Chloride 109 H (96-108) mmol/L BUN 30 H (9-16) mg/dL Creatinine 1.91 H (0.5-1.4) mg/dL Random Glucose 116 H (60-115) mg/dL Calcium 8.3 L (8.4-10.2) mg/dL Urine Blood (Negative) Ur Leukocyte Esterase (Negative) Urine RBC (0-2) /HPF Urine WBC (0-5) /HPF Short CBC 08/07/22 08/07/22 08/08/22 Range/Units 12:24 23:45 05:42 WBC 8.7 10.1 (4.8-10.8) X10*3/uL Hgb 10.8 L 10.3 L 10.9 L (14.0-18.0) g/dl Hct 33.7 L 31.4 L 32.9 L (42.0-52.0) % Plt Count 230 256 (160-400) X10*3/uL BMP 08/07/22 08/08/22 12:24 05:42 Sodium 144 141 Potassium 4.9 4.0 Chloride 106 109 H Carbon Dioxide 28 22 BUN 32 H 30 H Creatinine 2.35 H 1.91 H Calcium 8.8 8.3 L Liver Function 08/07/22 Range/Units 12:24 Total Bilirubin 0.9 (0.0-1.0) mg/dL AST 12 (5-37) U/L ALT 7 (0-40) U/L Alkaline Phosphatase 87 (39-117) U/L Albumin 4.2 (3.5-5.0) g/dL Urine 08/07/22 Range/Units 15:35 Urine Color Yellow Urine Appearance Cloudy Urine pH 6.5 (5.0-9.0) Ur Specific [place] 1.010 (1.005-1.025) Urine Protein Negative (Neg-Trace) mg/dL Urine Glucose (UA) Negative (Negative) mg/dL All other labs normal. Assessment and Plan (1) Acute renal failure: Status: Acute (2) Elevated serum creatinine: Status: Acute (3) Hydroureteronephrosis: Status: Acute Plan Risks, benefits and alternatives to therapy were discussed. These include but are not limited to infection, bleeding, damage to local organs and tissues, need for further interventions. Anesthetic risks regarding cardiac arrhythmia, blood clots, and potential mortality were discussed. The patient understands the typical recovery time and the outpatient nature of the procedure. After consideration of these risks the patient gives full informed consent and they wish to move ahead with the procedure. cystoscopy, right retrograde, right stent placement Time Spent With Patient Time: Total time managing care of this patient today ____ minutes. Procedures Date of Service Date of Service: 08/08/22
--- NOTE | 2022-08-08 08:54 | MHC.CM.PN ---
Patient is here with AMS & Expressive Aphasia; CM spoke with Primary Contact/Brother/Solo at listed #. [email or web address] addressed. 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 Home with new VNA VS STR pending PT eval is the tentative plan and CM has initiated and will follow for dc planning. Patient is covid vax'd x3 and his PCP is from [facility].
--- NOTE | 2022-08-08 11:44 | P.CNNE_ITS ---
History of Present Illness Data of Consult Service Date: 08/08/22 Primary Care Provider: [facility] Reason for consult: Stroke 77 years old man with underlying history of atrial fibrillation but not a nticoagulated came to hospital with change in mental status and difficulty speaking. Onset was unclear. When I saw him his brother and son were around his bed. There was strong smell of feces. There was no history of any recent seizure or seizure disorder. Son stated that his language was still not normal. There was no obvious distress patient was having. Review of Systems Review of Systems: Could not be done with [facility] Past Medical History Medical History Afib Cardiomyopathy RBBB Family History Family History Father No problems noted. Mother Cancer Sister Cancer Other Mental health disorder Surgical History Surgical History No pertinent past surgical history Social History Social History Household Members: None Housing: Apartment Do you presently have visiting nurse or other home services: No Alcohol intake: unknown Patient Tobacco Use Status: Never used Tobacco Cigarettes Per Day: 4 e-Cigarette/Vaping Use: Never Used service: No Current occupational status: unemployed Cognitive needs: No Hearing needs: No Vision needs: No Meds Allergies Allergy/AdvReac Type Severity Reaction Status Date / Time No Known Allergies Allergy Verified 05/12/22 11:42 Active Medications: Current Medications Acetaminophen (Acetaminophen 325 Mg Tablet) 650 mg PO Q6H PRN PRN Reason: Pain, Mild (Pain Scale 1-3) Last Admin: 08/07/22 20:19 Dose: 650 mg Aspirin (Aspirin Enteric Coated 81 Mg Tablet.) 81 mg PO DAILY [facility] Last Admin: 08/08/22 09:37 Dose: Not Given Atorvastatin Calcium (Atorvastatin Calcium 40 Mg Tablet) 40 mg PO BEDTIME [facility] Last Admin: 08/07/22 20:19 Dose: 40 mg Carvedilol (Carvedilol 25 Mg Tablet) 25 mg PO BID [facility]; Protocol Last Admin: 08/08/22 09:41 Dose: Not Given Mirtazapine (Mirtazapine 15 Mg Tablet) 15 mg PO BEDTIME [facility] Last Admin: 08/07/22 20:19 Dose: 15 mg Ondansetron HCl (Ondansetron Hcl 4 Mg/2 Ml Vial) 4 mg IVPUSH Q8H PRN PRN Reason: Nausea and Vomiting Sodium Chloride (0.9 % Sodium Chloride Flush 3 Ml Syringe) 3 ml IVFLUSH QSHIFT [facility] Last Admin: 08/08/22 07:59 Dose: 3 ml Physical Exam Vital Signs: Vital Signs: Last Vital Signs Temp 97.0 F 08/08/22 11:08 Pulse 76 08/08/22 11:08 Resp 20 08/08/22 11:08 BP 149/82 H 08/08/22 11:08 Pulse Ox 100 08/08/22 11:08 O2 Del Method Room Air 08/08/22 11:08 BMI result Body Mass Index 22.2 Neuro: Other: He did not speak [place]ian. According to son his speech was not back to normal. He was having difficulty stating name of his son. His son stated that words were not coming out. Patient was talking otherwise fluidly. He was able to name and repeat. Face was symmetrical. Visual haile were difficult to determined. There was no focal weakness. Results Labs 08/08/22 05:42 08/08/22 05:42 Labs: Short CBC 08/07/22 08/07/22 08/08/22 Range/Units 12:24 23:45 05:42 WBC 8.7 10.1 (4.8-10.8) X10*3/uL Hgb 10.8 L 10.3 L 10.9 L (14.0-18.0) g/dl Hct 33.7 L 31.4 L 32.9 L (42.0-52.0) % Plt Count 230 256 (160-400) X10*3/uL BMP 08/07/22 08/08/22 12:24 05:42 Sodium 144 141 Potassium 4.9 4.0 Chloride 106 109 H Carbon Dioxide 28 22 BUN 32 H 30 H Creatinine 2.35 H 1.91 H Calcium 8.8 8.3 L Liver Function 08/07/22 Range/Units 12:24 Total Bilirubin 0.9 (0.0-1.0) mg/dL AST 12 (5-37) U/L ALT 7 (0-40) U/L Alkaline Phosphatase 87 (39-117) U/L Albumin 4.2 (3.5-5.0) g/dL Urine 08/07/22 Range/Units 15:35 Urine Color Yellow Urine Appearance Cloudy Urine pH 6.5 (5.0-9.0) Ur Specific [place] 1.010 (1.005-1.025) Urine Protein Negative (Neg-Trace) mg/dL Urine Glucose (UA) Negative (Negative) mg/dL Noncontrast head CT revealed moderate size chronic left occipital infarct and [id number] chronic microvascular ischemic changes. Microbiology Microbiology Results: Microbiology 08/07/22 Unknown Urine clean catch - Urine hall top Urine Culture - Preliminary No growth to date. Assessment and Plan (1) Mild aphasia: Status: Acute 77 years old man with underlying history of atrial fibrillation not anticoagulated for some reason came to hospital with confusion and difficulty speaking. He was Swedish speaking and history was obtained with help of family. Apparently his language was still not back to baseline. It was suggestive of mild motor aphasia. 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 Otherwise testing was suggestive of UTI, hydronephrosis, and renal calculus. Abdominal issues were being investigated with a CT scan. He might have another ischemic infarction, which can be confirmed with MRI if needed. Mainstay of management is anticoagulation for stroke prevention, whenever it can be started. Time Spent With Patient Time: Total time managing care of this patient today ____ minutes. Procedures Date of Service Date of Service: 08/08/22
--- NOTE | 2022-08-08 12:30 | P.PNIM_ITS ---
Subjective Subjective Date of Service: 08/08/22 Interval History: Seen and evaluated this morning Feels comfortable overall having hematuria NPO for urological procedure Cr trending down No other overnight events Review of Systems Review of Systems: Yes all other systems are reviewed and are negative Physical Exam Vital Signs: Vital Signs: Last Vital Signs Temp 97.0 F 08/08/22 11:08 Pulse 76 08/08/22 11:08 Resp 20 08/08/22 11:08 BP 149/82 H 08/08/22 11:08 Pulse Ox 100 08/08/22 11:08 O2 Del Method Room Air 08/08/22 11:08 BMI result Body Mass Index 22.2 Const: Other: Constitutional : Awake, interactive, not in distress Neck : Normal inspection, Supple Cardiovascular : RRR, no JVP, no lower extremity edema Respiratory : good bilateral air entry, no crackles, wheezes or rhonchi Gastrointestinal: soft, lax, Normal bowel sounds, Non tender Skin : Warm, Dry Urology: Stein in with hematuria Neurological : Alert & oriented x2, No focal deficit , CN 2-12 within normal, speech is coherent but not back to baseline Objective Data Active Medications Acetaminophen (Acetaminophen 325 Mg Tablet) 650 mg PO Q6H PRN PRN Reason: Pain, Mild (Pain Scale 1-3) Last Admin: 08/07/22 20:19 Dose: 650 mg Documented By: TORSTEN Aspirin (Aspirin Enteric Coated 81 Mg Tablet.) 81 mg PO DAILY [facility] Last Admin: 08/08/22 09:37 Dose: Not Given Documented By: BELINDA Non-Admin Reason: NPO Atorvastatin Calcium (Atorvastatin Calcium 40 Mg Tablet) 40 mg PO BEDTIME [facility] Last Admin: 08/07/22 20:19 Dose: 40 mg Documented By: TORSTEN Carvedilol (Carvedilol 25 Mg Tablet) 25 mg PO BID [facility]; Protocol Last Admin: 08/08/22 09:41 Dose: Not Given Documented By: BELINDA Non-Admin Reason: Decreased Heart Rate Mirtazapine (Mirtazapine 15 Mg Tablet) 15 mg PO BEDTIME [facility] Last Admin: 08/07/22 20:19 Dose: 15 mg Documented By: TORSTEN Ondansetron HCl (Ondansetron Hcl 4 Mg/2 Ml Vial) 4 mg IVPUSH Q8H PRN PRN Reason: Nausea and Vomiting Sodium Chloride (0.9 % Sodium Chloride Flush 3 Ml Syringe) 3 ml IVFLUSH QSHIFT [facility] Last Admin: 08/08/22 07:59 Dose: 3 ml Documented By: BELINDA Labs 08/08/22 05:42 08/08/22 05:42 Labs: Laboratory Results - last 24 hr 08/07/22 08/07/22 08/07/22 12:24 12:24 15:35 MCV MCH MCHC RDW Plt Count MPV Absolute Nucleated RBC Nucleated RBC % (auto) PT 13.4 H INR 1.2 H APTT Cancelled Anion Gap 15 Estim Creat Clear Calc 23.6 Estimated GFR 27 Random Glucose 181 H Calcium 8.8 Magnesium 1.7 Total Bilirubin 0.9 AST 12 ALT 7 Alkaline Phosphatase 87 Total Protein 7.2 Albumin 4.2 Triglycerides Cholesterol LDL Cholesterol, Calc HDL Cholesterol Prostate Specific Ag 3.60 Urine Color Yellow Urine Appearance Cloudy Urine pH 6.5 Ur Specific [place] 1.010 Urine Protein Negative Urine Glucose (UA) Negative Urine Ketones Negative Urine Blood Large (3+) H Urine Nitrite Negative Ur Leukocyte Esterase Large (3+) H Urine RBC >20 H Urine WBC >50 H Ur Squamous Epith Cells 0-2 Urine Bacteria 4+ Hyaline Casts 0-2 Ur Random Sodium Urine Creatinine 08/07/22 08/08/22 08/08/22 15:35 05:42 05:42 MCV 87.0 MCH 28.8 MCHC 33.1 RDW 14.1 Plt Count 256 MPV 10.6 Absolute Nucleated RBC 0.000 Nucleated RBC % (auto) 0.0 PT INR APTT Anion Gap 14 Estim Creat Clear Calc 29.0 Estimated GFR 34 Random Glucose 116 H Calcium 8.3 L Magnesium Total Bilirubin AST ALT Alkaline Phosphatase Total Protein Albumin Triglycerides 59 Cholesterol 107 LDL Cholesterol, Calc 69 HDL Cholesterol 27 Prostate Specific Ag Urine Color Urine Appearance Urine pH Ur Specific [place] Urine Protein Urine Glucose (UA) Urine Ketones Urine Blood Urine Nitrite Ur Leukocyte Esterase Urine RBC Urine WBC Ur Squamous Epith Cells Urine Bacteria Hyaline Casts Ur Random Sodium 51.0 Urine Creatinine 47.79 Microbiology Microbiology Results: Microbiology 08/07/22 Unknown Urine Culture - Preliminary Urine clean catch - Urine hall top No growth to date. Assessment and Plan (1) Mild aphasia: Status: Acute (2) Hydroureteronephrosis: Status: Acute (3) Expressive aphasia: Status: Acute (4) Acute renal failure: Status: Acute (5) Acute kidney injury: Status: Acute (6) Urine retention: Status: Acute Plan A 77 years old male with PMH of HTN, Afib not on AC unclear why who presents to the hospital by family for reported speech problem and change in mental status. Speech problem CT\CTA showing old ischemic changes but no acute findings ASA in ED, hold for bleeding Keep on Tele further recommendations based on CT findings Neurology input appreciated, consider anticoagulation Urine retention 700 cc on scan Foleys placed in ED Normal PSA Start Tamsulosin Hematuria seems to be related to placement of Stein in ED hold blood thinners now Urology following Elevated Creatinine 2/2 Acute kidney injury from Right hydrouretronephrosis Cr improving renal US showing a mass behind bladder compressing ureter hold nephrotoxic meds Nephrology to follow Urology to place a stent Metabolic encephalopathy related to urine retention and hx of undiagnosed dementia and UTI reorientation treat underlying problems UTI Started on Levaquin this morning To use Ceftriaxone instead starting tomorrow Anemia unclear the acuity of it with no recent labs since 2019 and no evidence of bleeding prior to hospitalization Afib not on AC continue Carvedilol discuss need of AC to prevent strokes DVT PPx Heparin The patient will need overnight hospital stay for eval of abnormal kidney function, Hydronephrosis, speech problem pending surgical intervention, Creatinine improvement Time Spent With Patient Time: Total time managing care of this patient today ____ minutes. Quality Stroke Does the patient have a stroke diagnosis?: No VTE Prior VTE?: No VTE Risk Level:: Medical - moderate - high VTE Device Contraindication: Treatment Not Indicated VTE Drug Contraindication: N/A - Med Ordered
--- NOTE | 2022-08-08 13:32 | MHC.CM.PN ---
Patient has been switched from OBSERVATION to INPATIENT;IMM addressed.
--- NOTE | 2022-08-08 15:14 | PC.NURSE ---
Report received from Jaxson NEAL RN at 1430. Report now given to Catrachita LORENZO RN by author.
--- NOTE | 2022-08-08 16:19 | MHC.SHP ---
Pre-Procedural Eval Section A Date of Service: 08/08/22 The patient is an INPATIENT: Yes Changes since office visit: No Cold of Flu in the past 2 weeks, No New Medical Problems, No Changes in Medication and No Patient answered all questions The History & Physical has been completed within 30 days and I have reviewed it.: Yes Section B Chief Complaint: Confusion, speech problem Details of Present Illness: Right hydro nephrosis Allergies: Allergies Allergy/AdvReac Type Severity Reaction Status Date / Time No Known Allergies Allergy Verified 05/12/22 11:42 Review of Systems Sugical H&P ROS: Negative: Constitution, Cardiovascular, Respiratory, Neurological, Psychiatric, Hem-Onc, Allergic/Immunologic, Gastrointestinal, Genitourinary, Musculoskeletal, Integumentary, Endocrine and Eyes/Ears/Nose/Throat Exam Surgical H&P Exam: Normal: HEENT, Normal: Heart, Normal: Lungs, Normal: Extremities, Normal: Abdomen, Normal: Skin and Normal: Neurological Plan Diagnosis/Plan: Unchanged (Cystoscopy, right retrograde, right stent placement) I have reviewed the history and physical and performed a pertinent physical examination on my patient. No changes have occurred unless specified. Time Spent With Patient Time: Total time managing care of this patient today ____ minutes.
--- NOTE | 2022-08-08 16:30 | P.CONAN_ITS ---
Documented by User: Eric Rodriguez MD 08/08/22 16:32 HPI - Anesthesia Eval Consult details Narrative: for cysto, stent PMFSH Active Problems Active Problems: All Active Problems (Updated 08/08/22 @ 12:44 by Syeda Dobbs MD) Acute kidney injury (Acute) Mild aphasia (Acute) Hydroureteronephrosis (Acute) Expressive aphasia (Acute) Acute renal failure (Acute) Speech problem (Acute) Elevated serum creatinine (Acute) Urine retention (Acute) Tobacco dependence (Acute) Urinary frequency (Acute) Dermatitis (Acute) Adult general medical exam (Acute) Smoker (Acute) Loss of appetite (Acute) Screening for diabetes mellitus (Acute) Screening for hyperlipidemia (Acute) Screening for prostate cancer (Acute) Cardiomyopathy (Acute) RBBB (Acute) Afib (Acute) HTN (hypertension) (Acute) Past Medical History Medical History Afib Cardiomyopathy RBBB Family History Family History Father No problems noted. Mother Cancer Sister Cancer Other Mental health disorder Surgical History Surgical History No pertinent past surgical history Social History Social History Household Members: None Housing: Apartment Do you presently have visiting nurse or other home services: No Alcohol intake: unknown Patient Tobacco Use Status: Never used Tobacco Cigarettes Per Day: 4 e-Cigarette/Vaping Use: Never Used service: No Current occupational status: unemployed Cognitive needs: No Hearing needs: No Vision needs: No Meds Allergies Allergy/AdvReac Type Severity Reaction Status Date / Time No Known Allergies Allergy Verified 05/12/22 11:42 Active Medications: Current Medications Acetaminophen (Acetaminophen 325 Mg Tablet) 650 mg PO Q6H PRN PRN Reason: Pain, Mild (Pain Scale 1-3) Last Admin: 08/07/22 20:19 Dose: 650 mg Aspirin (Aspirin Enteric Coated 81 Mg Tablet.) 81 mg PO DAILY [facility] [place] Last Admin: 08/08/22 09:37 Dose: Not Given Atorvastatin Calcium (Atorvastatin Calcium 40 Mg Tablet) 40 mg PO BEDTIME [facility] [place] Last Admin: 08/07/22 20:19 Dose: 40 mg Carvedilol (Carvedilol 25 Mg Tablet) 25 mg PO BID [facility] [place]; Protocol Last Admin: 08/08/22 09:41 Dose: Not Given Ceftriaxone Sodium 1 gm/ (Sodium Chloride) 50 mls @ 100 mls/hr IV Q24H NGOC Mirtazapine (Mirtazapine 15 Mg Tablet) 15 mg PO BEDTIME [facility] [place] Last Admin: 08/07/22 20:19 Dose: 15 mg Ondansetron HCl (Ondansetron Hcl 4 Mg/2 Ml Vial) 4 mg IVPUSH Q8H PRN PRN Reason: Nausea and Vomiting Sodium Chloride (0.9 % Sodium Chloride Flush 3 Ml Syringe) 3 ml IVFLUSH QSHIFT [facility] [place] Last Admin: 08/08/22 15:34 Dose: Not Given Tamsulosin HCl (Tamsulosin Hcl 0.4 Mg Capsule) 0.4 mg PO DAILY [facility] [place] Exam Exam Date and Time: August 08, 2022 1630 Height,Weight and Vital Signs: Height 5 ft 6 in Weight 62.4 kg Last Vital Signs Temp 97.0 F 08/08/22 13:06 Pulse 79 08/08/22 13:06 Resp 16 08/08/22 13:06 BP 135/78 08/08/22 13:06 Pulse Ox 97 08/08/22 13:06 O2 Del Method Room Air 08/08/22 13:06 Pertinent Lab Results Pertinent Lab Results: Laboratory Tests 08/07/22 08/07/22 08/07/22 12:24 12:24 12:24 WBC 8.7 RBC 3.88 L Hgb 10.8 L Hct 33.7 L MCV 86.9 MCH 27.8 MCHC 32.0 RDW 14.1 Plt Count 230 MPV 9.9 Immature Gran % (Auto) 0.3 Neut % (Auto) 81.4 H Lymph % (Auto) 11.3 L [place] % (Auto) 6.1 Eos % (Auto) 0.7 Baso % (Auto) 0.2 Lymph # (Auto) 1.0 L [place] # (Auto) 0.5 Eos # (Auto) 0.1 Baso # (Auto) 0.0 Abs Immat Gran (auto) 0.03 Absolute Neuts (auto) 7.1 Absolute Nucleated RBC 0.000 Nucleated RBC % (auto) 0.0 PT 13.4 H INR 1.2 H APTT Cancelled Sodium 144 Potassium 4.9 Chloride 106 Carbon Dioxide 28 Anion Gap 15 BUN 32 H Creatinine 2.35 H Estim Creat Clear Calc 23.6 Estimated GFR 27 Random Glucose 181 H Calcium 8.8 Magnesium 1.7 Total Bilirubin 0.9 AST 12 ALT 7 Alkaline Phosphatase 87 Total Protein 7.2 Albumin 4.2 Triglycerides Cholesterol LDL Cholesterol, Calc HDL Cholesterol Prostate Specific Ag 3.60 Urine Color Urine Appearance Urine pH Ur Specific [place] Urine Protein Urine Glucose (UA) Urine Ketones Urine Blood Urine Nitrite Ur Leukocyte Esterase Urine RBC Urine WBC Ur Squamous Epith Cells Urine Bacteria Hyaline Casts Ur Random Sodium Urine Creatinine 08/07/22 08/07/22 08/07/22 15:35 15:35 23:45 WBC RBC Hgb 10.3 L Hct 31.4 L MCV MCH MCHC RDW Plt Count MPV Immature Gran % (Auto) Neut % (Auto) Lymph % (Auto) [place] % (Auto) Eos % (Auto) Baso % (Auto) Lymph # (Auto) [place] # (Auto) Eos # (Auto) Baso # (Auto) Abs Immat Gran (auto) Absolute Neuts (auto) Absolute Nucleated RBC Nucleated RBC % (auto) PT INR APTT Sodium Potassium Chloride Carbon Dioxide Anion Gap BUN Creatinine Estim Creat Clear Calc Estimated GFR Random Glucose Calcium Magnesium Total Bilirubin AST ALT Alkaline Phosphatase Total Protein Albumin Triglycerides Cholesterol LDL Cholesterol, Calc HDL Cholesterol Prostate Specific Ag Urine Color Yellow Urine Appearance Cloudy Urine pH 6.5 Ur Specific [place] 1.010 Urine Protein Negative Urine Glucose (UA) Negative Urine Ketones Negative Urine Blood Large (3+) H Urine Nitrite Negative Ur Leukocyte Esterase Large (3+) H Urine RBC >20 H Urine WBC >50 H Ur Squamous Epith Cells 0-2 Urine Bacteria 4+ Hyaline Casts 0-2 Ur Random Sodium 51.0 Urine Creatinine 47.79 08/08/22 08/08/22 05:42 05:42 WBC 10.1 RBC 3.78 L Hgb 10.9 L Hct 32.9 L MCV 87.0 MCH 28.8 MCHC 33.1 RDW 14.1 Plt Count 256 MPV 10.6 Immature Gran % (Auto) Neut % (Auto) Lymph % (Auto) [place] % (Auto) Eos % (Auto) Baso % (Auto) Lymph # (Auto) [place] # (Auto) Eos # (Auto) Baso # (Auto) Abs Immat Gran (auto) Absolute Neuts (auto) Absolute Nucleated RBC 0.000 Nucleated RBC % (auto) 0.0 PT INR APTT Sodium 141 Potassium 4.0 Chloride 109 H Carbon Dioxide 22 Anion Gap 14 BUN 30 H Creatinine 1.91 H Estim Creat Clear Calc 29.0 Estimated GFR 34 Random Glucose 116 H Calcium 8.3 L Magnesium Total Bilirubin AST ALT Alkaline Phosphatase Total Protein Albumin Triglycerides 59 Cholesterol 107 LDL Cholesterol, Calc 69 HDL Cholesterol 27 Prostate Specific Ag Urine Color Urine Appearance Urine pH Ur Specific [place] Urine Protein Urine Glucose (UA) Urine Ketones Urine Blood Urine Nitrite Ur Leukocyte Esterase Urine RBC Urine WBC Ur Squamous Epith Cells Urine Bacteria Hyaline Casts Ur Random Sodium Urine Creatinine Documented by User: Gilma Calvert MD 08/08/22 17:26 PMFSH Past Medical History Medical History Afib Cardiomyopathy RBBB Family History Family History Father No problems noted. Mother Cancer Sister Cancer Other Mental health disorder Family history of problems with anesthesia: No Surgical History Surgical History No pertinent past surgical history History of Problems with Anesthesia: No Social History Social History Household Members: None Housing: Apartment Do you presently have visiting nurse or other home services: No Alcohol intake: unknown Patient Tobacco Use Status: Never used Tobacco Cigarettes Per Day: 4 e-Cigarette/Vaping Use: Never Used service: No Current occupational status: unemployed Cognitive needs: No Hearing needs: No Vision needs: No Meds Allergies Allergy/AdvReac Type Severity Reaction Status Date / Time No Known Allergies Allergy Verified 05/12/22 11:42 Exam Airway Mallampati Class: Patient Non-Cooperative TM Dist: >3cm Neck ROM: Full Loose/Missing/Broken Teeth: No Heart: rr Lungs: cta Assessment and Plan Assessment Anesthesia Assessment: Anesthesia Plan Discussed and Chart Reviewed Final Anesthetic Review Family History of Problems with Anesthesia: No History of Problems with Anesthesia: No NPO: Yes ASA Class: IV and Emergency Final Preanesthetic Review: No Changes in Pt Med Stat, Meds/Allgs Chart Reviewed and Consent Obtained/Reviewed Patient Risk: High Procedure Risk: Low Anesthetic Plan Anesthetic Plan: GA Disposition: Inp. Admit - IMC
--- NOTE | 2022-08-08 17:36 | P.OP_ITS ---
Operative Note Operative Note Date of Service: 08/08/22 Narrative: PreOperative Diagnosis: Right hydronephrosis Post Operative Diagnosis: Right hydronephrosis Procedure: Cystoscopy, right retrograde, right stent placement Surgeon: Dr Nash Rivera Anesthesia: Sedation Indications for procedure: Elevated creatinine with right hydroureteronephrosis Procedure: After informed consent was verified the patient was brought to the operating room and placed in a supine position. Anesthesia was administered per protocol. The patient was placed in modified dorsal lithotomy position and prepped and draped in a sterile fashion. A safety pause time-out was performed. Laterality of procedure and antibiotics were confirmed, appropriate imaging was available A 22 [place] cystoscope was introduced per urethra. No abnormality was noted of urethra or bladder. Both ureteric orifices were seen in a normal position. His bladder was very inflamed. There was hematuria throughout the bladder and redness on the mucosa. No obvious mass. Did have Stein catheter in prior to procedure. The right ureter was eventually found and cannulated with an open ended catheter and a retrograde examination was performed. Severe J hooking was seen. Attempt was made to pass the sensor guidewire. Unable to pass. Using the angled glide wire this was navigated up to the renal pelvis. The open-ended catheter was passed in order to straighten the ureter. At this point the sensor guidewire was placed. . A Sensor guidewire was placed under fluoroscopy and a good coil was seen within the renal pelvis. The ureteric sheath was removed. A 6 [place] x 26cm double J stent was advanced over the wire and up to the level of the renal pelvis under fluoroscopic and direct visualization. The stent was seen with appropriate coil within the renal pelvis and in the bladder after deployment. The patient tolerated the procedure well and was transferred in a stable condition to the recovery area. Pathology: Drains: Drainage above
[2022-08-08] MEDS: Acetaminophen 1,000 MG/100 ML PIGGYBACK 400 MG IV (18:00)
[2022-08-08] MEDS: HYDROmorphone HCl 0.5 MG/0.5 ML SYRINGE 0.25 MG IVPUSH (20:56)
[2022-08-08] MEDS: carvediloL 25 MG TABLET PO (20:58)
[2022-08-08] MEDS: Mirtazapine 15 MG TABLET PO (20:58)
[2022-08-08] MEDS: Atorvastatin Calcium 40 MG TABLET PO (20:58)
[2022-08-09] VITALS (8 sets, daily range): BP systolic 98–143; BP diastolic 50–85; PULSE 66–84; RESP 20; TEMP 36.5–37.1; O2SAT 95–100
[2022-08-09 07:11] LABS: Hematocrit 34.5 % (42.0-52.0); Mean Corpuscular HGB Conc 31.9 g/dl (31.0-36.0); Mean Corpuscular Volume 87.8 fL (80.0-98.0); Mean Platelet Volume 10.1 fL (9.4-12.4); Platelet Count 229 X10*3/uL (160-400); Red Blood Count 3.93 X10*6/uL (4.60-5.80); Red Cell Distribution Width 14.2 % (11.0-16.0); White Blood Count 12.4 X10*3/uL (4.8-10.8)
[2022-08-09 07:32] LABS: Anion Gap 11 (12-20); Blood Urea Nitrogen 30 mg/dL (9-16); Calcium 8.4 mg/dL (8.4-10.2); Carbon Dioxide 27 mmol/L (22-29); Chloride 108 mmol/L (96-108); Creatinine Clr Calc Pharmacy 29.1; Estimated Glomerular Filt Rate 35; Glucose Random 105 mg/dL (60-115); Sodium 142 mmol/L (135-145)
[2022-08-09] MEDS: cefTRIAXone sodium 1 GM in 0.9 % Sodium Chloride 50 ML IV (08:51)
[2022-08-09] MEDS: Aspirin Enteric Coated 81 MG TABLET.DR PO (08:52)
[2022-08-09] MEDS: Tamsulosin HCL 0.4 MG CAPSULE PO (08:52)
[2022-08-09] MEDS: 0.9 % Sodium Chloride Flush 3 ML SYRINGE IVFLUSH ×2 (08:52→21:06)
[2022-08-09] MEDS: carvediloL 25 MG TABLET PO (08:52)
--- NOTE | 2022-08-09 10:46 | P.CDIM_ITS ---
PROVIDER RESPONSE TEXT: To clarify, the appropriate diagnosis supported by the clinical indicators: Acute renal failure on Chronic Kidney Disease (CKD) Stage 1 QUERY TEXT: PHYSICIAN'S DOCUMENTATION REQUEST Date of Query: 08/09/2022 10:05 AM EDT Patient Name: Gui Werner Admit Date: 08/07/2022 Dear Syeda Dobbs, A review of the medical record indicates additional documentation may be needed. Please review below and update the documentation accordingly. Clinical Indicators: H & P 6/4 - Elevated creatinine 2/2 Acute kidney injury vs. CKD Hold nephrotoxic meds Cr: 2.35 GFR: 27 BUN: 32 Please clarify which of the following accurately represents the patient's stage of CKD: Acute renal failure on Chronic Kidney Disease (CKD) Stage 1 CKD Stage 2 CKD Stage 3 Other Other (explain)Clinically unable to determine (explain)Thank you, Larisa Wade, CCS, CDIS Use of terms such as suspected, likely, concern for, or probable (associated with a specific diagnosi s that is being evaluated, monitored, or treated as if it exists) are acceptable and can be coded in the inpatient se tting, when documented at the time of discharge. Please use your independent medical judgment in providing your response. THIS QUERY IS PART OF THE PERMANENT MEDICAL RECORD
--- NOTE | 2022-08-09 11:00 | CA_ITS ---
Transthoracic Echocardiogram Patient (Last, First, Middle): Gui Werner, Gender: Male Date of : 1945 Age: 77 Procedure Date: 08/09/2022 Procedure Type: Transthoracic Echocardiogram Location: [facility] [place] Height: 167.64 cm Weight: 62.14 kg BSA: 1.70 m2 Heart Rate: bpm BP: 140 / 85 mmHg Branch Banker: TO Referring MD: Syeda Dobbs MD Symptoms: aphasia, likely stroke. hx Afib Study Quality: Fair Conclusions: - Mildly increased left ventricular cavity size. There is mildly increased left ventricular wall thickness. The left ventricular systolic function is moderate to severely decreased. The visually estimated ejection fraction is between 25-30%. - Mildly increased right ventricular cavity size. There is borderline right ventricular systolic function. - The left atrium is severely dilated. The right atrium is moderately dilated. - The posterior mitral leaflet has restricted mobility. There is mild to moderate mitral valve regurgitation. The mitral regurgitation jet is directed posteriorly. There is no mitral valve stenosis. - There is mild dilatation of the sinuses of Valsalva measuring 3.82 cm and mild dilatation of the ascending aorta measuring 3.60 cm. Findings Left Ventricle Mildly increased left ventricular cavity size. There is mildly increased left ventricular wall thickness. The left ventricular systolic function is moderate to severely decreased. The visually estimated ejection fraction is between 25-30%. There is moderate global hypokinesis. Diastolic function is indeterminate on the basis of available data. Right Ventricle Mildly increased right ventricular cavity size. There is borderline right ventricular systolic function. Atria The left atrium is severely dilated. The right atrium is moderately dilated. Aortic Valve There is a normal trileaflet aortic valve. There is mild calcification of the aortic valve. There is no aortic valve stenosis. There is trace (trivial) aortic valve regurgitation. Mitral Valve The posterior mitral leaflet has restricted mobility. There is mild to moderate mitral valve regurgitation. The mitral regurgitation jet is directed posteriorly. There is no mitral valve stenosis. Pulmonic Valve Normal pulmonic valve structure and function. There is trace pulmonic valve regurgitation. Tricuspid Valve Normal tricuspid valve structure and function. There is mild to moderate tricuspid valve regurgitation. Normal right atrial pressure. There is no evidence of pulmonary hypertension. Great Vessels There is mild dilatation of the sinuses of Valsalva measuring 3.82 cm and mild dilatation of the ascending aorta measuring 3.60 cm. Venous The inferior vena cava is normal in size and collapses greater than 50% with inspiration. Pericardium/Pleural There is a small loculated pericardial effusion overlying the left ventricle. Prior Study Comparison Changes noted compared to prior study dated: 11/06/2019. EF Mod to severely reduced, Mild RV dilation. PA pressures are likely underestimated. Measurements 2D Linear Measurements IVSd: 1.14 0.6-0.9/0.6-1.0 cm LVIDd: 6.06 3.9-5.3/4.2-5.9 cm LVIDd Index: 3.56 2.4-3.2/2.2-3.1 cm/m2 LVIDs: 4.97 2.0-3.6 cm LVPWd: 1.04 0.7-1.1 cm LA Diam: 4.80 2.7-3.8/3.0-4.0 cm LAIDs Index: 2.82 1.5-2.3 cm/m2 LV Mass: 350.41 67-162/88-224 g LV Mass Index: 206.12 43-95/49-115 g/m2 LVOT Diam: 2.20 3.0+(-)1.3 cm 2D Systolic Function EF 4C: 42.20 >55% EF 2C: 42.10 >55% EF BiP: 42.20 >55% Mitral Valve MV Pk E: 0.78 MV Decel Time: 147.00 E'Lateral: 9.03 E'Medial: 6.53 E/E' Med: 11.90 E/E' Lat: 8.60 PHT: 43.00 MVA PHT: 5.12 Decel [place]: 5.31 Aortic Valve AoV Pk [place]: 1.53 AoV Pk Grad: 9.00 LVOT LVOT Pk [place]: 0.72 LVOT Mn [place]: 0.45 LVOT VTI: 0.13 LVOT Pk Grad: 2.00 LVOT Mn Grad: 1.00 LVOT Diam: 2.20 LVOT Area: 3.80 Diastolic Function MV Pk E: 0.78 E'Medial: 6.53 E/E' Med: 11.90 E' Laterial: 9.03 E/E' Lat: 8.60 Right Ventricle TAPSE (mm): 18.10 TVS' Bart[place]: 10.10 Tricuspid Valve TR Pk [place]: 2.56 TR Pk Grad: 26.00 RA Press: 8.00 RVSP: 34.00 Great Vessels Aorta Sinus of Valsalva: 3.82 2.0-3.5 cm Ao Asc: 3.60 2.1-3.4 cm Updated in Other Vendor System with Status of Final Gustavo Nazario MD electronically signed on 08/09/2022 4:21:54 PM with status of Final
--- NOTE | 2022-08-09 11:17 | MHC.STROKE ---
Addendum entered by Yuridia Melendez RN 08/10/22 15:07: I MET WITH THE PATIENT AND FAMILY TODAY, HIS DAUGHTER IS HERE FROM [place] TO ASSIST WITH HIS FINANCES. SHE EXPLAINED TO ME THAT HE WENT TO THE PHARMACY AND NEVER FILLED THE XARELTO BECAUSE HE COULD NOT AFFORD IT. I CONFIRMED THIS WITH THE PHARMACIST, HE HAD NOT FILED THIS PRESCRIPTION. I REVIEWED HOW AND WHY THIS MEDICATION IS SO IMPORTANT. I DID RELAY THIS INFORMATION TO THE BATTERY FILLER MIRANDA AND SHE WILL CONTACT THE FINANCIAL COUNSELOR AND PROVIDE A 30-DAY VOUCHER. I DISCUSSED THE LOCATION OF THE NEW STROKE IN THE LEFT OCCIPITAL AREA, I PROVIDED A SCREENSHOT OF THE STROKE AND EXPLAINED HOW THE AFIB CAN CAUSE THIS TYPE OF STROKE AND WHY TAKING THE ANTICOAGULANT IS SO VITAL TO PREVENTING FUTURE STROKES. WE REVIEWED THE STROKE BOOKLET, I ANSWERED ALL OF THEIR QUESTIONS. I CONFIRMED THAT HIS VTE PROPHYLAXIS WAS APPLIED, I DID DOCUMENT IT BECAUSE I OBSERVED THE BOOTS BEING ON 08/09/22. WE ARE COMPLIANT WITH THIS STROKE MEASURE. I REVIEWED THE NEED FOR ANTICOAGULATION WITH DR PARIKH, SEE HIS NOTE. I REVIEWED THE MRI WITH DR. ARREGUIN, NO NEW RECOMMENDATIONS. I WILL CONTINUE TO FOLLOW. Original Note: TODAY I MET WITH THE PATIENT, BROTHER AND SON. WE DISCUSSED HIS STROKE RISK FACTORS, FOCUSING ON AFIB AND IF HE WAS TAKING HIS XARELTO. I ALSO CALLED THE PHARMACIST AT [facility] AND SPOKE WITH SKYLER, WE REVIEWED THE PHARMACY NOTES AND MD OFFICE NOTES. THE PATIENT IS NON-COMPLIANT WITH HIS MEDICATIONS AND HAS NOT PICKED UP HIS XARELTO AT [facility] IN OVER A YEAR. THE BROTHER SAID THE PATIENT HAD A FALL AND THAT HE HIMSELF HAS HEART ISSUES AND CERTAIN MEDS BOTHER HIM, HE THOUGHT THAT MIGHT ALSO BE HAPPENING TO HIS BOTHER SO THEY STOPPED SOME OF THE MEDICATIONS INCLUDING XARELTO. I RELAYED ALL TIS INFORMATION TO DR. ARREGUIN. HE IS RECOMMENDING MRI, ECHO, SPEECH TX AND RESTARTING XARELTO. I DID TIGER TEXT DR MARRERO. I PROVIDED STROKE EDUCATION WITH THE BOOKLET AND POWER POINT HANDOUT. I REVIEWED THE PLAN OF CARE AND ANSWERED ALL OF THEIR QUESTIONS. I WILL CONTINUE TO FOLLOW.
--- NOTE | 2022-08-09 11:25 | CONS_ITS ---
DATE OF SERVICE: 08/08/2022 REASON FOR CONSULTATION: I was asked to see the patient to assist in evaluation and management of patient's acute kidney injury as reflected by a creatinine of 2.35 on admission, whereas in the electronic medical record, the last creatinine we have is 0.78 back in 2019. HISTORY OF PRESENT ILLNESS: In summary, the patient is a 77-year-old gentleman with a history of hypertension; atrial fibrillation, not on Coumadin; who presented to the hospital as apparently he had some speech problems and change in mental status noticed by the family. In the emergency room, he had a CT done without IV contrast, which showed old ischemic changes, but no new changes. Information obtained from electronic medical records. The patient is a poor historian. MEDICATIONS ON ADMISSION: It is unclear what he normally takes. ALLERGIES: HE HAS NO KNOWN DRUG ALLERGIES. CURRENT MEDICATIONS: Noted in the MAR. FAMILY HISTORY: Noncontributory. SOCIAL HISTORY: Records indicate that he is a smoker. REVIEW OF SYSTEMS: As noted above and somewhat limited. PHYSICAL EXAMINATION: VITAL SIGNS: Blood pressure 135/70 with a heart rate in the 70s. HEAD: Atraumatic and normocephalic. NECK: Supple. ENT: Mucous membranes moist. LUNGS: Breath sounds bilaterally. CARDIAC: Regular rate and rhythm. ABDOMEN: Soft. EXTREMITIES: Show no edema. DIAGNOSTIC STUDIES: Labs from today shows hemoglobin 10.9, hematocrit 32.9, white blood cell count 10.1, platelet count 256. Sodium 141, potassium 4, chloride 109, bicarb 22, BUN 30, creatinine 1.91 down from 2.35, calcium 8.3. Urine studies showed significant blood on the UA, urine sodium of 51, urine creatinine of 47. He had the imaging studies including ultrasound of the kidneys, which showed [id number] right-sided hydronephrosis. He was seen by Urology and there was a concern for persistent hydronephrosis, and he is scheduled to undergo a cystoscopy with retrograde and right stent placement. IMPRESSION: 77-YEAR-OLD GENTLEMAN WITH ACUTE KIDNEY INJURY FROM OBSTRUCTIVE UROPATHY OF THE RIGHT KIDNEY. 1. Acute kidney injury. Renal function seems to be improving with Stein placement and IV hydration. He is going to have the right kidney decompressed urologically, given there is persistent hydro. This should hopefully translate into continued improvement of renal function. 2. Question of chronic kidney disease. It is unclear what his baseline renal function is as the most recent labs we have go back to 2020 when his creatinine was 0.8 and certainly could have had progressive loss of renal function over the past 3 years. RECOMMENDATIONS: At this time include continued IV fluids. Follow urine output and renal function. Further evaluation depending on his clinical course regarding his renal dysfunction if it does not continue to improve. MD SUKUMAR Rey/JAILENE / [id number]
[2022-08-09] MEDS: oxyCODONE HCl Immed Release 5 MG TABLET PO (12:42)
--- NOTE | 2022-08-09 13:09 | P.PNIM_ITS ---
Subjective Subjective Date of Service: 08/09/22 Interval History: Seen and evaluated this morning Feels comfortable overall, still having difficulties with aphasia having hematuria Cr trending down No other overnight events Review of Systems No fever, chills or weakness No chest pain, palpitation No shortness of breath or coughing No abdominal pain, nausea or vomiting No any rash or wounds Hematuria Physical Exam Vital Signs: Vital Signs: Last Vital Signs Temp 98.8 F 08/09/22 11:19 Pulse 84 08/09/22 11:19 Resp 20 08/09/22 11:19 BP 140/85 H 08/09/22 11:19 Pulse Ox 95 08/09/22 11:19 O2 Del Method Room Air 08/09/22 11:19 BMI result Body Mass Index 22.2 Const: Other: Constitutional : Awake, interactive, not in distress Neck : Normal inspection, Supple Cardiovascular : RRR, no JVP, no lower extremity edema Respiratory : good bilateral air entry, no crackles, wheezes or rhonchi Gastrointestinal: soft, lax, Normal bowel sounds, Non tender Skin : Warm, Dry Urology: Stein in with hematuria, no clots noticed Neurological : Alert & oriented x2, No focal deficit , CN 2-12 within normal, speech is coherent but not back to baseline and still aphasic Objective Data Active Medications Acetaminophen (Acetaminophen 325 Mg Tablet) 650 mg PO Q6H PRN PRN Reason: Pain, Mild (Pain Scale 1-3) Last Admin: 08/07/22 20:19 Dose: 650 mg Documented By: TORSTEN Aspirin (Aspirin Enteric Coated 81 Mg Tablet.) 81 mg PO DAILY [facility] Last Admin: 08/09/22 08:52 Dose: 81 mg Documented By: ANJALI Atorvastatin Calcium (Atorvastatin Calcium 40 Mg Tablet) 40 mg PO BEDTIME [facility] Last Admin: 08/08/22 20:58 Dose: 40 mg Documented By: MEL Carvedilol (Carvedilol 25 Mg Tablet) 25 mg PO BID [facility]; Protocol Last Admin: 08/09/22 08:52 Dose: 25 mg Documented By: ANJALI Fentanyl (Fentanyl Citrate/Pf 100 Mcg/2 Ml Vial) 25 mcg IVPUSH Q5M PRN; Protocol PRN Reason: Pain, Moderate(Pain Scale 4-6) Hydromorphone HCl (Hydromorphone Hcl 0.5 Mg/0.5 Ml Syringe) 0.25 mg IVPUSH Q5M PRN; Protocol PRN Reason: Pain, Severe (Pain Scale 7-10) Last Admin: 08/08/22 20:56 Dose: 0.25 mg Documented By: MEL Ceftriaxone Sodium 1 gm/ (Sodium Chloride) 50 mls @ 100 mls/hr IV Q24H [facility] Last Infusion: 08/09/22 09:54 Dose: 0 mls/hr Documented By: ANJALI Mirtazapine (Mirtazapine 15 Mg Tablet) 15 mg PO BEDTIME [facility] Last Admin: 08/08/22 20:58 Dose: 15 mg Documented By: MEL Ondansetron HCl (Ondansetron Hcl 4 Mg/2 Ml Vial) 4 mg IVPUSH Q8H PRN PRN Reason: Nausea and Vomiting Ondansetron HCl (Ondansetron Hcl 4 Mg/2 Ml Vial) 2 mg IVPUSH ONCE PRN PRN Reason: Nausea and Vomiting Sodium Chloride (0.9 % Sodium Chloride Flush 3 Ml Syringe) 3 ml IVFLUSH QSHIFT [facility] Last Admin: 08/09/22 08:52 Dose: 3 ml Documented By: ANJALI Tamsulosin HCl (Tamsulosin Hcl 0.4 Mg Capsule) 0.4 mg PO DAILY [facility] Last Admin: 08/09/22 08:52 Dose: 0.4 mg Documented By: ANJALI Labs 08/09/22 06:57 08/09/22 06:57 Labs: Laboratory Results - last 24 hr 08/09/22 08/09/22 06:57 06:57 MCV 87.8 MCH 28.0 MCHC 31.9 RDW 14.2 Plt Count 229 MPV 10.1 Absolute Nucleated RBC 0.000 Nucleated RBC % (auto) 0.0 Anion Gap 11 L Estim Creat Clear Calc 29.1 Estimated GFR 35 Random Glucose 105 Calcium 8.4 Microbiology Microbiology Results: Microbiology 08/07/22 Unknown Urine Culture - Final Urine clean catch - Urine hall top Assessment and Plan (1) Acute kidney injury: Status: Acute (2) Hydroureteronephrosis: Status: Acute (3) Mild aphasia: Status: Acute (4) Expressive aphasia: Status: Acute (5) Speech problem: Status: Acute (6) Urine retention: Status: Acute (7) Hematuria: Status: Acute Plan A 77 years old male with PMH of HTN, Afib not on AC unclear why who presents to the hospital by family for reported speech problem and change in mental status. 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 Urine retention 700 cc on scan Foleys placed in ED Normal PSA Start Tamsulosin Hematuria seems to be related to placement of Stein in ED hold blood thinners now Urology following Elevated Creatinine 2/2 Acute kidney injury from Right hydrouretronephrosis Cr improving renal US showing a mass behind bladder compressing ureter hold nephrotoxic meds Nephrology to follow Urology to place a stent Metabolic encephalopathy related to urine retention and hx of undiagnosed dementia and UTI reorientation treat underlying problems UTI Started on Levaquin this morning To use Ceftriaxone instead starting tomorrow Anemia unclear the acuity of it with no recent labs since 2019 and no evidence of bleeding prior to hospitalization Afib not on AC, he stopped taking them because he felt they were not helping continue Carvedilol discuss need of AC to prevent strokes DVT PPx Heparin The patient will need overnight hospital stay for eval of abnormal kidney function, Hydronephrosis, speech problem pending surgical intervention, Regino adames Time Spent With Patient Time: Total time managing care of this patient today ____ minutes. Quality Stroke Does the patient have a stroke diagnosis?: No VTE Prior VTE?: No VTE Risk Level:: Medical - moderate - high VTE Device Contraindication: Treatment Not Indicated VTE Drug Contraindication: N/A - Med Ordered
--- NOTE | 2022-08-09 13:44 | HO.POSTANES ---
Post Anesthesia Evaluation Post Anesthesia Evaluation Date of Service: 08/09/22 Vital Signs: Vital Signs Temp Pulse Resp BP Pulse Ox O2 Del Method 08/09/22 11:19 98.8 F 84 20 140/85 H 95 Room Air 08/09/22 07:17 98.2 F 75 20 129/82 97 Room Air 08/09/22 04:00 98.7 F 78 20 143/83 H 100 Room Air Anesthesia: General Mental Status: Awake Pain Control: Satisfactory Nausea/Vomiting: None Hydration: Adequate Anesthesia-Related Issues: No Anes. Related Issues
--- NOTE | 2022-08-09 16:15 | PM.PNNEP ---
Subjective Subjective Date of Service: 08/09/22 Interval history: Seen and exmined, events noted Physical Exam Vital Signs: Vital Signs: Last Vital Signs Temp 98 F 08/09/22 16:00 Pulse 83 08/09/22 16:00 Resp 20 08/09/22 16:00 BP 114/65 08/09/22 16:00 Pulse Ox 97 08/09/22 16:00 O2 Del Method Room Air 08/09/22 16:00 BMI result Body Mass Index 22.2 Const: Other: Constitutional : Awake, interactive, not in distress Neck : Normal inspection, Supple Cardiovascular : RRR, no JVP, no lower extremity edema Respiratory : good bilateral air entry, no crackles, wheezes or rhonchi Gastrointestinal: soft, lax, Normal bowel sounds, Non tender Skin : Warm, Dry Urology: Mcgrath in with hematuria, no clots noticed Neurological : Alert & oriented x2, No focal deficit , CN 2-12 within normal, speech is coherent but not back to baseline and still aphasic General: cooperative, healthy appearing, comfortable and no acute distress Orientation/consciousness: patient oriented x3 Limitations: language barrier HEENT: Face and sinus: Yes normal facial exam Mouth: moist mucous membranes Neck: Neck: Yes normal visual inspection, Yes full ROM and Yes trachea midline Chest: Chest palpation & inspection: normal inspection of the chest Resp: Effort & Inspection: normal respiratory effort, able to speak in complete sentences and no respiratory distress GI: Inspection: Yes normal to inspection Back/Spine/Pelvis: Cervical Spine: normal cervical lordosis Thoracic/Lumbar Spine: thoracic and lumbar spine normal to inspection Skin: General skin exam: no rashes or lesions noted Neuro: Other: He did not speak Tunisian. According to son his speech was not back to normal. He was having difficulty stating name of his son. His son stated that words were not coming out. Patient was talking otherwise fluidly. He was able to name and repeat. Face was symmetrical. Visual haile were difficult to determined. There was no focal weakness. General: patient oriented x3, tone normal and moves all extremities Extrem: General: Yes normal to inspection and Yes capillary refill normal Objective Data Labs 08/09/22 06:57 08/09/22 06:57 Labs: Laboratory Results - last 24 hr 08/09/22 08/09/22 06:57 06:57 WBC 12.4 H RBC 3.93 L Hgb 11.0 L Hct 34.5 L MCV 87.8 MCH 28.0 MCHC 31.9 RDW 14.2 Plt Count 229 MPV 10.1 Absolute Nucleated RBC 0.000 Nucleated RBC % (auto) 0.0 Sodium 142 Potassium 4.0 Chloride 108 Carbon Dioxide 27 Anion Gap 11 L BUN 30 H Creatinine 1.90 H Estim Creat Clear Calc 29.1 Estimated GFR 35 Random Glucose 105 Calcium 8.4 Microbiology Microbiology Results: Microbiology 08/07/22 Unknown Urine clean catch - Urine hall top Urine Culture - Final Procedures Date of Service Date of Service: 08/09/22 Assessment & Plan Assessment and plan (1) Acute kidney injury: Status: Acute (2) Hydroureteronephrosis: Status: Acute (3) Mild aphasia: Status: Acute (4) Expressive aphasia: Status: Acute (5) Speech problem: Status: Acute (6) Urine retention: Status: Acute (7) Hematuria: Status: Acute Plan 1. Non-Oliguuric BECKY: SCr palteau 1.9; Obs uropathy with delayed recovery w mcgrath; suspect persisntent R hydro playing a role--> urol to place stent BSL SCr 0.8 REC: cont to track UOP /renal fuc; avoid NToxins Time Spent With Patient Time: Total time managing care of this patient today ____ minutes. Progress Note: Quality Stroke Does the patient have a stroke diagnosis?: No
--- NOTE | 2022-08-09 16:50 | MHC.SL.SWA ---
Speech Pathologist Impression: Risk of Aspiration Due to: Reduced Cognition Dysphasia Diet Status: Liquid Consistency and Strategies for Safe Swallow: Liquid Intake Recommendation: Thin Liquid Intake Strategies: Unrestricted Solid Food Consistency: Dietary Recommendations: Regular Oral Medication Intake: Whole with Liquid Please contact the pharmacy regarding appropriate crushable or liquid drug formulations that are available whenever modified delivery is recommended. Compensatory Strategies and Precautions to be Taken for Safe Swallow: Sitting Upright (90 deg) Supervision While Eating and Drinking for Safe Swallow: Intermittent Supervision Foods to Avoid: N/a Recommendation for Speech: Further Testing Needed Comment: No swallowing difficulties noted, however he is presenting with clear difficulties with expressive language. A Language Screen was performed with assistance of a Belarusian-speaking Board Worker. He named x1/3 pictured animals. He used his own semantic and gestural cues to assist with his word retrieval. He is also noted to become perseverative in his responses. For instance with an object in the room (comb), he responded with the present progressive verb form of combing paired with a gesture. Up to 5-10 minutes later when reviewing results and recommendations with his Son, the Pt was still talking about the comb and combing his hair. Further assessment of receptive and expressive language by a Belarusian-speaking INSTRUCTOR ADJUNCT SURGICAL TECHNICIAN is highly recommended prior to discharge to provide further recommendations for Speech Therapy at his next level of care. Timeline to reassess: PRN Seafood Service Team Member Clinican/Clinical Fellow: No Supervisory Statement: I have reviewed and agree with the student/clinical fellow's documentation: N/A Speech Language Pathologist: Shan Gonzalez M.A., [facility]-INSTRUCTOR ADJUNCT SURGICAL TECHNICIAN
[2022-08-09] MEDS: Atorvastatin Calcium 40 MG TABLET PO (21:04)
[2022-08-09] MEDS: Mirtazapine 15 MG TABLET PO (21:04)
[2022-08-10] VITALS (7 sets, daily range): BP systolic 96–139; BP diastolic 55–80; PULSE 72–85; RESP 18–20; TEMP 36.6–37.1; O2SAT 95–98
--- NOTE | 2022-08-10 05:14 | PC.NURSE ---
Pt has had low blood pressure and episodes of bradycardia throughout the night. Pt was asymptomatic and resting comfortably. MD aware, will continue to monitor.
[2022-08-10 06:06] LABS: Hematocrit 28.9 % (42.0-52.0); Hemoglobin 9.5 g/dl (14.0-18.0); Mean Corpuscular HGB Conc 32.9 g/dl (31.0-36.0); Mean Corpuscular Hemoglobin 28.1 pg (27.0-33.0); Mean Corpuscular Volume 85.5 fL (80.0-98.0); Mean Platelet Volume 10.2 fL (9.4-12.4); Platelet Count 200 X10*3/uL (160-400); Red Blood Count 3.38 X10*6/uL (4.60-5.80); Red Cell Distribution Width 14.2 % (11.0-16.0); White Blood Count 10.4 X10*3/uL (4.8-10.8)
[2022-08-10 06:18] LABS: Anion Gap 11 (12-20); Blood Urea Nitrogen 39 mg/dL (9-16); Calcium 7.7 mg/dL (8.4-10.2); Carbon Dioxide 24 mmol/L (22-29); Chloride 108 mmol/L (96-108); Estimated Glomerular Filt Rate 30; Glucose Random 110 mg/dL (60-115); Potassium 3.3 mmol/L (3.3-5.1); Sodium 140 mmol/L (135-145)
[2022-08-10] MEDS: Tamsulosin HCL 0.4 MG CAPSULE PO (08:05)
[2022-08-10] MEDS: carvediloL 25 MG TABLET PO ×2 (08:05→21:45)
[2022-08-10] MEDS: 0.9 % Sodium Chloride Flush 3 ML SYRINGE IVFLUSH ×2 (08:06→21:45)
[2022-08-10] MEDS: cefTRIAXone sodium 1 GM in 0.9 % Sodium Chloride 50 ML IV (08:06)
--- NOTE | 2022-08-10 11:44 | MHC.CM.PN ---
Per ROUNDS discussion, Patient is not yet medically cleared for dc today r/t need for monitoring of Patient's renal function. PT recommends home with services and CM will continue to follow.
--- NOTE | 2022-08-10 12:01 | P.PNIM_ITS ---
Subjective Subjective Date of Service: 08/10/22 Interval History: aphaisa, no complaints Physical Exam Vital Signs: Vital Signs: Last Vital Signs Temp 98.8 F 08/10/22 07:23 Pulse 82 08/10/22 07:23 Resp 20 08/10/22 07:23 BP 139/80 08/10/22 07:23 Pulse Ox 97 08/10/22 07:23 O2 Del Method Room Air 08/10/22 07:23 BMI result Body Mass Index 22.2 expressive aphasia, able to converse a bit, hematuria in mcgrath Objective Data Active Medications Acetaminophen (Acetaminophen 325 Mg Tablet) 650 mg PO Q6H PRN PRN Reason: Pain, Mild (Pain Scale 1-3) Last Admin: 08/07/22 20:19 Dose: 650 mg Documented By: TORSTEN Aspirin (Aspirin Enteric Coated 81 Mg Tablet.) 81 mg PO DAILY [facility] Last Admin: 08/09/22 08:52 Dose: 81 mg Documented By: ANJALI Atorvastatin Calcium (Atorvastatin Calcium 40 Mg Tablet) 40 mg PO BEDTIME [facility] Last Admin: 08/09/22 21:04 Dose: 40 mg Documented By: LEOBARDO Carvedilol (Carvedilol 25 Mg Tablet) 25 mg PO BID [facility]; Protocol Last Admin: 08/10/22 08:05 Dose: 25 mg Documented By: TEJINDER Fentanyl (Fentanyl Citrate/Pf 100 Mcg/2 Ml Vial) 25 mcg IVPUSH Q5M PRN; Protocol PRN Reason: Pain, Moderate(Pain Scale 4-6) Hydromorphone HCl (Hydromorphone Hcl 0.5 Mg/0.5 Ml Syringe) 0.25 mg IVPUSH Q5M PRN; Protocol PRN Reason: Pain, Severe (Pain Scale 7-10) Last Admin: 08/08/22 20:56 Dose: 0.25 mg Documented By: MEL Ceftriaxone Sodium 1 gm/ (Sodium Chloride) 50 mls @ 100 mls/hr IV Q24H [facility] Last Infusion: 08/10/22 08:56 Dose: 0 mls/hr Documented By: TEJINDER Mirtazapine (Mirtazapine 15 Mg Tablet) 15 mg PO BEDTIME [facility] Last Admin: 08/09/22 21:04 Dose: 15 mg Documented By: HO.CRAWFS Ondansetron HCl (Ondansetron Hcl 4 Mg/2 Ml Vial) 4 mg IVPUSH Q8H PRN PRN Reason: Nausea and Vomiting Ondansetron HCl (Ondansetron Hcl 4 Mg/2 Ml Vial) 2 mg IVPUSH ONCE PRN PRN Reason: Nausea and Vomiting Sodium Chloride (0.9 % Sodium Chloride Flush 3 Ml Syringe) 3 ml IVFLUSH QSHIFT [facility] Last Admin: 08/10/22 08:06 Dose: 3 ml Documented By: TEJINDER Tamsulosin HCl (Tamsulosin Hcl 0.4 Mg Capsule) 0.4 mg PO DAILY [facility] Last Admin: 08/10/22 08:05 Dose: 0.4 mg Documented By: TEJINDER Labs 08/10/22 05:49 08/10/22 05:49 Labs: Laboratory Results - last 24 hr 08/10/22 08/10/22 05:49 05:49 MCV 85.5 MCH 28.1 MCHC 32.9 RDW 14.2 Plt Count 200 MPV 10.2 Absolute Nucleated RBC 0.000 Nucleated RBC % (auto) 0.0 Anion Gap 11 L Estim Creat Clear Calc 26.0 Estimated GFR 30 Random Glucose 110 Calcium 7.7 L D Microbiology Microbiology Results: Microbiology 08/07/22 Unknown Urine Culture - Final Urine clean catch - Urine hall top Assessment and Plan (1) Acute kidney injury: Status: Acute (2) Hydroureteronephrosis: Status: Acute (3) Mild aphasia: Status: Acute (4) Expressive aphasia: Status: Acute (5) Speech problem: Status: Acute (6) Urine retention: Status: Acute (7) Hematuria: Status: Acute Plan 77M PMH of HTN, Afib no longer on AC (was on xarelto in 2021), chronic systolic chf, presented to the hospital by family for reported speech problem and change in mental status. acute CVA unable to tolerate asa/ac due to hematuria continue statin AC when no longer contraindicated BECKY likely due to chronic urinary retention due to possible bladder mass, ollie-I stents placed, mcgrath inserted, creatinine stable, but not improving continues to have hematuria monitor h and h follow up acute Metabolic encephalopathy related to urine retention and hx of undiagnosed dementia and UTI reorientation ? UTI completed 3 days abx, culture <10K Anemia stable, unclear acuity or etiology permanent Afib not on AC, he stopped xarelto on his own continue Carvedilol will restart AC when no longer contraindicated DVT PPx mechanical due to hematuria reason for continued hospitalization:hematuria active Time Spent With Patient Time: Total time managing care of this patient today ____ minutes. Quality Stroke Does the patient have a stroke diagnosis?: No VTE Prior VTE?: No VTE Risk Level:: Medical - moderate - high VTE Device Contraindication: Treatment Not Indicated VTE Drug Contraindication: N/A - Med Ordered
[2022-08-10] MEDS: Acetaminophen 325 MG TABLET 650 MG PO (13:40)
--- NOTE | 2022-08-10 14:22 | MHC.CM.PN ---
A referral has been made to [facility] to determine if Patient is eligible for [facility]; Patient reports having difficulty affording his meds.
--- NOTE | 2022-08-10 15:44 | MHC.SL.SOA ---
Referring Provider: Dr. Dobbs Reason for Referral: New onset Aphasia Date of Plan of Treatment:08/09/22 Onset of Symptoms/Illness:08/09/22 Date Treatment Started:08/09/22 Medical Diagnosis:UTI, Acute CVA Primary Speech Language Diagnosis:R47.01 Aphasia Reason for Visit:76502 Individual Treatment Pt seen for f/u regarding pt's presentation of aphasia. Pt's family present at bedside. Pt's family reports that pt's language has improved since Monday and that he is speaking more Palestinian than Maori which is reportedly atypical. Pt's family reports pt frustration and perseverating on words and conversation topics. Pt family reports pt using the word eso (this) a lot during conversation. Pt administered shortened version of BNT with prompts mainly in Maori with some Palestinian. Pt presenting with dysfluent speech (un... un ... un...) and describing the objects presented. For example, when provided with a picture of an octopus pt stated in the ocean. When presented with an image of a house, pt responded esto... esto... before labeling items door window. Pt produced 5 of 15 words without cues. With cueing; pt scored 6/15. When provided with multiple choice options in Palestinian, pt accurately selected octopus and sphinx. Pt also produced brush for an image of a toothbrush. Recommend continued speech therapy during hospitalization and at next level of care. Seen by: Graduate/Clinical Fellow: No Supervisory Statement: f_Reg Query Last Value , MHC.AU.SIGNATUR Speech Language Pathologist: Brianna Lebron M.A., LOCAL INTERMODAL TRUCK DRIVER
[2022-08-10] MEDS: Mirtazapine 15 MG TABLET PO (21:44)
[2022-08-10] MEDS: Atorvastatin Calcium 40 MG TABLET PO (21:44)
--- NOTE | 2022-08-10 23:55 | PM.PNNEP ---
Subjective Subjective Date of Service: 08/10/22 Interval history: Seen and examined, events noted Physical Exam Vital Signs: Vital Signs: Last Vital Signs Temp 98.2 F 08/10/22 23:20 Pulse 72 08/10/22 23:20 Resp 18 08/10/22 23:20 BP 113/64 08/10/22 23:20 Pulse Ox 97 08/10/22 23:20 O2 Del Method Room Air 08/10/22 23:20 BMI result Body Mass Index 22.2 Const: Other: Constitutional : Awake, interactive, not in distress Neck : Normal inspection, Supple Cardiovascular : RRR, no JVP, no lower extremity edema Respiratory : good bilateral air entry, no crackles, wheezes or rhonchi Gastrointestinal: soft, lax, Normal bowel sounds, Non tender Skin : Warm, Dry Urology: Mcgrath in with hematuria, no clots noticed Neurological : Alert & oriented x2, No focal deficit , CN 2-12 within normal, speech is coherent but not back to baseline and still aphasic General: cooperative, healthy appearing, comfortable and no acute distress Orientation/consciousness: patient oriented x3 Limitations: language barrier HEENT: Face and sinus: Yes normal facial exam Mouth: moist mucous membranes Neck: Neck: Yes normal visual inspection, Yes full ROM and Yes trachea midline Chest: Chest palpation & inspection: normal inspection of the chest Resp: Effort & Inspection: normal respiratory effort, able to speak in complete sentences and no respiratory distress GI: Inspection: Yes normal to inspection Back/Spine/Pelvis: Cervical Spine: normal cervical lordosis Thoracic/Lumbar Spine: thoracic and lumbar spine normal to inspection Skin: General skin exam: no rashes or lesions noted Neuro: Other: He did not speak Irish. According to son his speech was not back to normal. He was having difficulty stating name of his son. His son stated that words were not coming out. Patient was talking otherwise fluidly. He was able to name and repeat. Face was symmetrical. Visual haile were difficult to determined. There was no focal weakness. General: patient oriented x3, tone normal and moves all extremities Extrem: General: Yes normal to inspection and Yes capillary refill normal Objective Data Labs 08/10/22 05:49 08/10/22 05:49 Labs: Laboratory Results - last 24 hr 08/10/22 08/10/22 05:49 05:49 WBC 10.4 RBC 3.38 L Hgb 9.5 L Hct 28.9 L MCV 85.5 MCH 28.1 MCHC 32.9 RDW 14.2 Plt Count 200 MPV 10.2 Absolute Nucleated RBC 0.000 Nucleated RBC % (auto) 0.0 Sodium 140 Potassium 3.3 Chloride 108 Carbon Dioxide 24 Anion Gap 11 L BUN 39 H Creatinine 2.13 H Estim Creat Clear Calc 26.0 Estimated GFR 30 Random Glucose 110 Calcium 7.7 L D Microbiology Microbiology Results: Microbiology 08/07/22 Unknown Urine clean catch - Urine hall top Urine Culture - Final Procedures Date of Service Date of Service: 08/10/22 Assessment & Plan Assessment and plan (1) Acute kidney injury: Status: Acute (2) Hydroureteronephrosis: Status: Acute (3) Mild aphasia: Status: Acute (4) Expressive aphasia: Status: Acute (5) Speech problem: Status: Acute (6) Urine retention: Status: Acute (7) Hematuria: Status: Acute Plan 1. Non-Oliguuric BECKY: SCr palteau 1.9; Obs uropathy with delayed recovery w mcgrath; ques persisntent Obs despite urol intervention will need to be excluded if SCr does not come down BSL SCr 0.8 REC: repeat renal u/s in am if Scr remains > 1.8; cont to track UOP /renal fuc; avoid NToxins Time Spent With Patient Time: Total time managing care of this patient today ____ minutes. Progress Note: Quality Stroke Does the patient have a stroke diagnosis?: No
[2022-08-11] VITALS (7 sets, daily range): BP systolic 102–121; BP diastolic 50–68; PULSE 62–85; RESP 15–20; TEMP 36.5–37.2; O2SAT 97–100
[2022-08-11] MEDS: Acetaminophen 325 MG TABLET 650 MG PO ×2 (03:42→13:28)
[2022-08-11 06:29] LABS: Hematocrit 26.7 % (42.0-52.0); Hemoglobin 8.8 g/dl (14.0-18.0); Mean Corpuscular Hemoglobin 28.7 pg (27.0-33.0); Mean Platelet Volume 10.9 fL (9.4-12.4); Platelet Count 203 X10*3/uL (160-400); Red Blood Count 3.07 X10*6/uL (4.60-5.80); Red Cell Distribution Width 14.3 % (11.0-16.0); White Blood Count 8.6 X10*3/uL (4.8-10.8)
[2022-08-11 06:42] LABS: Anion Gap 11 (12-20); Blood Urea Nitrogen 41 mg/dL (9-16); Calcium 7.7 mg/dL (8.4-10.2); Carbon Dioxide 24 mmol/L (22-29); Chloride 109 mmol/L (96-108); Creatinine Clr Calc Pharmacy 25.2; Estimated Glomerular Filt Rate 29; Glucose Fasting 96 mg/dL (60-99); Sodium 141 mmol/L (135-145)
[2022-08-11] MEDS: Potassium Chloride ER 20 MEQ TAB.ER.PRT 40 MEQ PO (10:26)
[2022-08-11] MEDS: carvediloL 25 MG TABLET PO (10:26)
[2022-08-11] MEDS: Tamsulosin HCL 0.4 MG CAPSULE PO (10:27)
[2022-08-11] MEDS: 0.9 % Sodium Chloride Flush 3 ML SYRINGE IVFLUSH ×3 (10:28→20:41)
--- NOTE | 2022-08-11 10:31 | PM.PNNEP ---
Subjective Subjective Date of Service: 08/11/22 Interval history: Seen and examined, events noted confused mcgrath --Gross blkood Physical Exam Vital Signs: Vital Signs: Last Vital Signs Temp 98.9 F 08/11/22 07:55 Pulse 66 08/11/22 07:55 Resp 18 08/11/22 07:55 BP 103/64 08/11/22 07:55 Pulse Ox 97 08/11/22 03:26 O2 Del Method Room Air 08/11/22 07:55 BMI result Body Mass Index 22.2 Const: Other: Constitutional : Awake, interactive, not in distress Neck : Normal inspection, Supple Cardiovascular : RRR, no JVP, no lower extremity edema Respiratory : good bilateral air entry, no crackles, wheezes or rhonchi Gastrointestinal: soft, lax, Normal bowel sounds, Non tender Skin : Warm, Dry Urology: Mcgrath in with hematuria, no clots noticed Neurological : Alert & oriented x2, No focal deficit , CN 2-12 within normal, speech is coherent but not back to baseline and still aphasic General: cooperative, healthy appearing, comfortable and no acute distress Orientation/consciousness: patient oriented x3 Limitations: language barrier HEENT: Face and sinus: Yes normal facial exam Mouth: moist mucous membranes Neck: Neck: Yes normal visual inspection, Yes full ROM and Yes trachea midline Chest: Chest palpation & inspection: normal inspection of the chest Resp: Effort & Inspection: normal respiratory effort, able to speak in complete sentences and no respiratory distress GI: Inspection: Yes normal to inspection Back/Spine/Pelvis: Cervical Spine: normal cervical lordosis Thoracic/Lumbar Spine: thoracic and lumbar spine normal to inspection Skin: General skin exam: no rashes or lesions noted Neuro: Other: He did not speak Moldovan. According to son his speech was not back to normal. He was having difficulty stating name of his son. His son stated that words were not coming out. Patient was talking otherwise fluidly. He was able to name and repeat. Face was symmetrical. Visual haile were difficult to determined. There was no focal weakness. General: patient oriented x3, tone normal and moves all extremities Extrem: General: Yes normal to inspection and Yes capillary refill normal Objective Data Labs 08/11/22 06:07 08/11/22 06:07 Labs: Laboratory Results - last 24 hr 08/11/22 08/11/22 06:07 06:07 WBC 8.6 RBC 3.07 L Hgb 8.8 L Hct 26.7 L MCV 87.0 MCH 28.7 MCHC 33.0 RDW 14.3 Plt Count 203 MPV 10.9 Absolute Nucleated RBC 0.000 Nucleated RBC % (auto) 0.0 Sodium 141 Potassium 3.0 L Chloride 109 H Carbon Dioxide 24 Anion Gap 11 L BUN 41 H Creatinine 2.20 H Estim Creat Clear Calc 25.2 Estimated GFR 29 Fasting Glucose 96 Calcium 7.7 L Microbiology Microbiology Results: Microbiology 08/07/22 Unknown Urine clean catch - Urine hall top Urine Culture - Final Procedures Date of Service Date of Service: 08/11/22 Assessment & Plan Assessment and plan (1) Acute kidney injury: Status: Acute (2) Hydroureteronephrosis: Status: Acute (3) Mild aphasia: Status: Acute (4) Expressive aphasia: Status: Acute (5) Speech problem: Status: Acute (6) Urine retention: Status: Acute (7) Hematuria: Status: Acute Plan 1. Non-Oliguuric BECKY: SCr palteau 1.9-2.2; Obs uropathy with delayed recovery w mcgrath; ques persisntent Obs despite urol intervention will need to be excluded if SCr does not come down BSL SCr 0.8 2. HypoK REC: replace K; repeat renal u/s and check with UROL; cont to track UOP /renal fuc; avoid NToxins Time Spent With Patient Time: Total time managing care of this patient today ____ minutes. Progress Note: Quality Stroke Does the patient have a stroke diagnosis?: No
--- NOTE | 2022-08-11 11:37 | HO.PM.IMPN ---
Subjective Subjective Date of Service: 08/11/22 Interval History: hematuria Physical Exam Vital Signs: Vital Signs: Last Vital Signs Temp 98.0 F 08/11/22 11:32 Pulse 85 08/11/22 11:32 Resp 20 08/11/22 11:32 BP 102/66 08/11/22 11:32 Pulse Ox 100 08/11/22 11:32 O2 Del Method Room Air 08/11/22 11:32 BMI result Body Mass Index 22.2 Const: Other: Constitutional : Awake, interactive, not in distress Neck : Normal inspection, Supple Cardiovascular : RRR, no JVP, no lower extremity edema Respiratory : good bilateral air entry, no crackles, wheezes or rhonchi Gastrointestinal: soft, lax, Normal bowel sounds, Non tender Skin : Warm, Dry Urology: Mcgrath in with hematuria, no clots noticed Neurological : Alert & oriented x2, No focal deficit , CN 2-12 within normal, speech is coherent but not back to baseline and still aphasic General: cooperative, healthy appearing, comfortable and no acute distress Orientation/consciousness: patient oriented x3 Limitations: language barrier HEENT: Face and sinus: Yes normal facial exam Mouth: moist mucous membranes Neck: Neck: Yes normal visual inspection, Yes full ROM and Yes trachea midline Chest: Chest palpation & inspection: normal inspection of the chest Resp: Effort & Inspection: normal respiratory effort, able to speak in complete sentences and no respiratory distress GI: Inspection: Yes normal to inspection Back/Spine/Pelvis: Cervical Spine: normal cervical lordosis Thoracic/Lumbar Spine: thoracic and lumbar spine normal to inspection Skin: General skin exam: no rashes or lesions noted Neuro: Other: He did not speak Algerian. According to son his speech was not back to normal. He was having difficulty stating name of his son. His son stated that words were not coming out. Patient was talking otherwise fluidly. He was able to name and repeat. Face was symmetrical. Visual haile were difficult to determined. There was no focal weakness. General: patient oriented x3, tone normal and moves all extremities Extrem: General: Yes normal to inspection and Yes capillary refill normal Objective Data Active Medications Acetaminophen (Acetaminophen 325 Mg Tablet) 650 mg PO Q6H PRN PRN Reason: Pain, Mild (Pain Scale 1-3) Last Admin: 08/11/22 03:42 Dose: 650 mg Documented By: LEOBARDO Aspirin (Aspirin Enteric Coated 81 Mg Tablet.) 81 mg PO DAILY [facility] Last Admin: 08/09/22 08:52 Dose: 81 mg Documented By: ANJALI Atorvastatin Calcium (Atorvastatin Calcium 40 Mg Tablet) 40 mg PO BEDTIME [facility] Last Admin: 08/10/22 21:44 Dose: 40 mg Documented By: LEOBARDO Carvedilol (Carvedilol 25 Mg Tablet) 25 mg PO BID [facility]; Protocol Last Admin: 08/11/22 10:26 Dose: 25 mg Documented By: SALVADOR Fentanyl (Fentanyl Citrate/Pf 100 Mcg/2 Ml Vial) 25 mcg IVPUSH Q5M PRN; Protocol PRN Reason: Pain, Moderate(Pain Scale 4-6) Hydromorphone HCl (Hydromorphone Hcl 0.5 Mg/0.5 Ml Syringe) 0.25 mg IVPUSH Q5M PRN; Protocol PRN Reason: Pain, Severe (Pain Scale 7-10) Last Admin: 08/08/22 20:56 Dose: 0.25 mg Documented By: MEL Mirtazapine (Mirtazapine 15 Mg Tablet) 15 mg PO BEDTIME [facility] Last Admin: 08/10/22 21:44 Dose: 15 mg Documented By: LEOBARDO Ondansetron HCl (Ondansetron Hcl 4 Mg/2 Ml Vial) 4 mg IVPUSH Q8H PRN PRN Reason: Nausea and Vomiting Ondansetron HCl (Ondansetron Hcl 4 Mg/2 Ml Vial) 2 mg IVPUSH ONCE PRN PRN Reason: Nausea and Vomiting Sodium Chloride (0.9 % Sodium Chloride Flush 3 Ml Syringe) 3 ml IVFLUSH QSHIFT [facility] Last Admin: 08/11/22 10:28 Dose: 3 ml Documented By: SALVADOR Tamsulosin HCl (Tamsulosin Hcl 0.4 Mg Capsule) 0.4 mg PO DAILY [facility] Last Admin: 08/11/22 10:27 Dose: 0.4 mg Documented By: SALVADOR Comments: barcode warped and won't scan Labs 08/11/22 06:07 08/11/22 06:07 Labs: Laboratory Results - last 24 hr 08/11/22 08/11/22 06:07 06:07 MCV 87.0 MCH 28.7 MCHC 33.0 RDW 14.3 Plt Count 203 MPV 10.9 Absolute Nucleated RBC 0.000 Nucleated RBC % (auto) 0.0 Anion Gap 11 L Estim Creat Clear Calc 25.2 Estimated GFR 29 Fasting Glucose 96 Calcium 7.7 L Assessment and Plan (1) Acute kidney injury: Status: Acute (2) Hydroureteronephrosis: Status: Acute (3) Mild aphasia: Status: Acute (4) Expressive aphasia: Status: Acute (5) Speech problem: Status: Acute (6) Urine retention: Status: Acute (7) Hematuria: Status: Acute Plan 77M PMH of HTN, Afib no longer on AC (was on xarelto in 2021), chronic systolic chf, presented to the hospital by family for reported speech problem and change in mental status. acute CVA unable to tolerate asa/ac due to hematuria continue statin AC when no longer contraindicated BECKY likely due to chronic urinary retention due to possible bladder mass, ollie-I stents placed, mcgrath inserted, creatinine stable, but not improving will repeat renal us continues to have hematuria monitor h and h follow up acute Metabolic encephalopathy related to urine retention and hx of undiagnosed dementia and UTI reorientation ? UTI completed 3 days abx, culture <10K acute on chronic Anemia mutlifactorial current acute blood loss anemia due to hematuria monitor permanent Afib not on AC, he stopped xarelto on his own continue Carvedilol will restart AC when no longer contraindicated DVT PPx mechanical due to hematuria reason for continued hospitalization:hematuria active Time Spent With Patient Time: Total time managing care of this patient today ____ minutes. Quality Stroke Does the patient have a stroke diagnosis?: No VTE Prior VTE?: No VTE Risk Level:: Medical - moderate - high VTE Device Contraindication: Treatment Not Indicated VTE Drug Contraindication: N/A - Med Ordered
[2022-08-11] MEDS: oxyBUTYnin chloride ER 5 MG TAB.ER.24 PO (14:25)
[2022-08-11] MEDS: Atorvastatin Calcium 40 MG TABLET PO (20:38)
[2022-08-11] MEDS: Mirtazapine 15 MG TABLET PO (20:38)
[2022-08-12 03:10] VITALS: BP 114/66; PULSE 76; RESP 16; TEMP 37.1; O2SAT 98
[2022-08-12 06:01] LABS: Hematocrit 25.9 % (42.0-52.0); Hemoglobin 8.3 g/dl (14.0-18.0); Mean Corpuscular Hemoglobin 27.9 pg (27.0-33.0); Mean Corpuscular Volume 87.2 fL (80.0-98.0); Mean Platelet Volume 9.9 fL (9.4-12.4); Platelet Count 203 X10*3/uL (160-400); Red Blood Count 2.97 X10*6/uL (4.60-5.80); Red Cell Distribution Width 14.3 % (11.0-16.0); White Blood Count 9.1 X10*3/uL (4.8-10.8)
[2022-08-12 06:19] LABS: Anion Gap 11 (12-20); Blood Urea Nitrogen 42 mg/dL (9-16); Calcium 7.7 mg/dL (8.4-10.2); Carbon Dioxide 24 mmol/L (22-29); Chloride 109 mmol/L (96-108); Creatinine Clr Calc Pharmacy 27.1; Estimated Glomerular Filt Rate 32; Glucose Fasting 100 mg/dL (60-99); Potassium 3.4 mmol/L (3.3-5.1); Sodium 141 mmol/L (135-145)
[2022-08-12 07:54] VITALS: BP 137/88; PULSE 81; RESP 20; TEMP 36.3; O2SAT 99
--- NOTE | 2022-08-12 09:04 | HO.PM.IMPN ---
Subjective Subjective Date of Service: 08/12/22 Interval History: hematuria Physical Exam Vital Signs: Vital Signs: Last Vital Signs Temp 97.3 F 08/12/22 07:54 Pulse 81 08/12/22 07:54 Resp 20 08/12/22 07:54 BP 137/88 08/12/22 07:54 Pulse Ox 99 08/12/22 07:54 O2 Del Method Room Air 08/12/22 07:54 BMI result Body Mass Index 22.2 Const: Other: Constitutional : Awake, interactive, not in distress Neck : Normal inspection, Supple Cardiovascular : RRR, no JVP, no lower extremity edema Respiratory : good bilateral air entry, no crackles, wheezes or rhonchi Gastrointestinal: soft, lax, Normal bowel sounds, Non tender Skin : Warm, Dry Urology: Mcgrath in with hematuria, no clots noticed Neurological : Alert & oriented x2, No focal deficit , CN 2-12 within normal, speech is coherent but not back to baseline and still aphasic General: cooperative, healthy appearing, comfortable and no acute distress Orientation/consciousness: patient oriented x3 Limitations: language barrier HEENT: Face and sinus: Yes normal facial exam Mouth: moist mucous membranes Neck: Neck: Yes normal visual inspection, Yes full ROM and Yes trachea midline Chest: Chest palpation & inspection: normal inspection of the chest Resp: Effort & Inspection: normal respiratory effort, able to speak in complete sentences and no respiratory distress GI: Inspection: Yes normal to inspection Back/Spine/Pelvis: Cervical Spine: normal cervical lordosis Thoracic/Lumbar Spine: thoracic and lumbar spine normal to inspection Skin: General skin exam: no rashes or lesions noted Neuro: Other: He did not speak Bengali. According to son his speech was not back to normal. He was having difficulty stating name of his son. His son stated that words were not coming out. Patient was talking otherwise fluidly. He was able to name and repeat. Face was symmetrical. Visual haile were difficult to determined. There was no focal weakness. General: patient oriented x3, tone normal and moves all extremities Extrem: General: Yes normal to inspection and Yes capillary refill normal Objective Data Active Medications Acetaminophen (Acetaminophen 325 Mg Tablet) 650 mg PO Q6H PRN PRN Reason: Pain, Mild (Pain Scale 1-3) Last Admin: 08/11/22 13:28 Dose: 650 mg Documented By: SALVADOR Aspirin (Aspirin Enteric Coated 81 Mg Tablet.) 81 mg PO DAILY [facility] Last Admin: 08/09/22 08:52 Dose: 81 mg Documented By: ANJALI Atorvastatin Calcium (Atorvastatin Calcium 40 Mg Tablet) 40 mg PO BEDTIME [facility] Last Admin: 08/11/22 20:38 Dose: 40 mg Documented By: ERICKA Carvedilol (Carvedilol 25 Mg Tablet) 25 mg PO BID [facility]; Protocol Last Admin: 08/11/22 20:38 Dose: Not Given Documented By: ERICKA Non-Admin Reason: BP/HR low Fentanyl (Fentanyl Citrate/Pf 100 Mcg/2 Ml Vial) 25 mcg IVPUSH Q5M PRN; Protocol PRN Reason: Pain, Moderate(Pain Scale 4-6) Hydromorphone HCl (Hydromorphone Hcl 0.5 Mg/0.5 Ml Syringe) 0.25 mg IVPUSH Q5M PRN; Protocol PRN Reason: Pain, Severe (Pain Scale 7-10) Last Admin: 08/08/22 20:56 Dose: 0.25 mg Documented By: MEL Mirtazapine (Mirtazapine 15 Mg Tablet) 15 mg PO BEDTIME [facility] Last Admin: 08/11/22 20:38 Dose: 15 mg Documented By: ERICKA Ondansetron HCl (Ondansetron Hcl 4 Mg/2 Ml Vial) 4 mg IVPUSH Q8H PRN PRN Reason: Nausea and Vomiting Ondansetron HCl (Ondansetron Hcl 4 Mg/2 Ml Vial) 2 mg IVPUSH ONCE PRN PRN Reason: Nausea and Vomiting Oxybutynin Chloride (Oxybutynin Chloride Er 5 Mg Tab.Er.24) 5 mg PO DAILY [facility] Last Admin: 08/11/22 14:25 Dose: 5 mg Documented By: SALVADOR Sodium Chloride (0.9 % Sodium Chloride Flush 3 Ml Syringe) 3 ml IVFLUSH [facility] Last Admin: 08/11/22 20:41 Dose: 3 ml Documented By: ERICKA Tamsulosin HCl (Tamsulosin Hcl 0.4 Mg Capsule) 0.4 mg PO DAILY [facility] Last Admin: 08/11/22 10:27 Dose: 0.4 mg Documented By: SALVADOR Comments: barcode warped and won't scan Labs 08/12/22 05:54 08/12/22 05:54 Labs: Laboratory Results - last 24 hr 08/12/22 08/12/22 05:54 05:54 MCV 87.2 MCH 27.9 MCHC 32.0 RDW 14.3 Plt Count 203 MPV 9.9 Absolute Nucleated RBC 0.000 Nucleated RBC % (auto) 0.0 Anion Gap 11 L Estim Creat Clear Calc 27.1 Estimated GFR 32 Fasting Glucose 100 H Calcium 7.7 L Assessment and Plan (1) Acute kidney injury: Status: Acute (2) Hydroureteronephrosis: Status: Acute (3) Mild aphasia: Status: Acute (4) Expressive aphasia: Status: Acute (5) Speech problem: Status: Acute (6) Urine retention: Status: Acute (7) Hematuria: Status: Acute Plan 77M PMH of HTN, Afib no longer on AC (was on xarelto in 2021), chronic systolic chf, presented to the hospital by family for reported speech problem and change in mental status. acute CVA unable to tolerate asa/ac due to hematuria continue statin AC when no longer contraindicated BECKY likely due to chronic urinary retention due to possible bladder mass, ollie-I stents placed, mcgrath inserted, creatinine stable, but not improving follow up repeat renal us continues to have hematuria monitor h and h follow up acute Metabolic encephalopathy related to urine retention and hx of undiagnosed dementia and UTI reorientation ? UTI completed 3 days abx, culture <10K acute on chronic Anemia mutlifactorial current acute blood loss anemia due to hematuria monitor permanent Afib not on AC, he stopped xarelto on his own continue Carvedilol will restart AC when no longer contraindicated DVT PPx mechanical due to hematuria reason for continued hospitalization:hematuria active Time Spent With Patient Time: Total time managing care of this patient today ____ minutes. Quality Stroke Does the patient have a stroke diagnosis?: No VTE Prior VTE?: No VTE Risk Level:: Medical - moderate - high VTE Device Contraindication: Treatment Not Indicated VTE Drug Contraindication: N/A - Med Ordered
[2022-08-12] MEDS: Tamsulosin HCL 0.4 MG CAPSULE PO (09:26)
[2022-08-12] MEDS: oxyBUTYnin chloride ER 5 MG TAB.ER.24 PO (09:26)
[2022-08-12] MEDS: carvediloL 25 MG TABLET PO ×2 (09:26→20:10)
[2022-08-12] MEDS: 0.9 % Sodium Chloride Flush 3 ML SYRINGE IVFLUSH ×2 (09:26→20:10)
--- NOTE | 2022-08-12 10:30 | MHC.CM.PN ---
Per ROUNDS discussion, Patient is still having Hematuria and is not yet medically cleared for dc. PT is recommending home with services and CM will follow.
[2022-08-12 11:43] VITALS: BP 126/66; PULSE 92; RESP 20; TEMP 36.3; O2SAT 99
[2022-08-12 15:06] VITALS: BP 118/67; PULSE 80; RESP 20; TEMP 36.7; O2SAT 98
[2022-08-12 17:00] VITALS: O2SAT 96
--- NOTE | 2022-08-12 18:11 | PM.PNNEP ---
Subjective Subjective Date of Service: 08/13/22 Interval history: Events noted hematuria Physical Exam Vital Signs: Vital Signs: Last Vital Signs Temp 98.0 F 08/12/22 15:06 Pulse 80 08/12/22 15:06 Resp 20 08/12/22 15:06 BP 118/67 08/12/22 15:06 Pulse Ox 96 08/12/22 17:00 O2 Del Method Room Air 08/12/22 17:00 BMI result Body Mass Index 22.2 Comfortable Neck is supple Lung: Air entry equal Heart: S1,S2, normal. No rub Abd: Soft. BS + NS : Alert.No asterexis Objective Data Labs 08/12/22 05:54 08/12/22 05:54 Labs: Laboratory Results - last 24 hr 08/12/22 08/12/22 05:54 05:54 WBC 9.1 RBC 2.97 L Hgb 8.3 L Hct 25.9 L MCV 87.2 MCH 27.9 MCHC 32.0 RDW 14.3 Plt Count 203 MPV 9.9 Absolute Nucleated RBC 0.000 Nucleated RBC % (auto) 0.0 Sodium 141 Potassium 3.4 Chloride 109 H Carbon Dioxide 24 Anion Gap 11 L BUN 42 H Creatinine 2.04 H Estim Creat Clear Calc 27.1 Estimated GFR 32 Fasting Glucose 100 H Calcium 7.7 L Microbiology Microbiology Results: Microbiology 08/07/22 Unknown Urine clean catch - Urine hall top Urine Culture - Final Procedures Date of Service Date of Service: 08/13/22 Assessment & Plan Assessment and plan (1) Acute kidney injury: Status: Acute Assessment and Plan: 1. Non-Oliguuric BECKY: Marginal improvement in serum creatinine today Obs uropathy with delayed recovery w mcgrath; Baseline serum creatinine is 0.8 2. Hypokalemia. Stands corrected. 3. Anemia Keep intake more than the output and will follow renal ultrasonogram. Continue to trend serum creatinine (2) Hematuria: Status: Acute Time Spent With Patient Time: Total time managing care of this patient today ____ minutes. Progress Note: Quality Stroke Does the patient have a stroke diagnosis?: No
[2022-08-12 19:12] VITALS: BP 129/70; PULSE 82; RESP 20; TEMP 37.3; O2SAT 98
[2022-08-12] MEDS: Atorvastatin Calcium 40 MG TABLET PO (20:10)
[2022-08-12] MEDS: Mirtazapine 15 MG TABLET PO (20:10)
[2022-08-13] VITALS: BP 103/56; PULSE 60; RESP 20; TEMP 36.7; O2SAT 98
[2022-08-13 03:07] VITALS: BP 100/48; PULSE 62; RESP 20; TEMP 36.2; O2SAT 97
[2022-08-13 07:13] LABS: Hematocrit 24.7 % (42.0-52.0); Hemoglobin 8.1 g/dl (14.0-18.0); Mean Corpuscular HGB Conc 32.8 g/dl (31.0-36.0); Mean Corpuscular Hemoglobin 28.1 pg (27.0-33.0); Mean Corpuscular Volume 85.8 fL (80.0-98.0); Mean Platelet Volume 10.2 fL (9.4-12.4); Platelet Count 217 X10*3/uL (160-400); Red Blood Count 2.88 X10*6/uL (4.60-5.80); Red Cell Distribution Width 14.2 % (11.0-16.0); White Blood Count 8.4 X10*3/uL (4.8-10.8)
[2022-08-13 07:18] VITALS: BP 113/65; PULSE 60; RESP 20; TEMP 36.2; O2SAT 99
[2022-08-13] MEDS: oxyBUTYnin chloride ER 5 MG TAB.ER.24 PO (08:59)
[2022-08-13] MEDS: carvediloL 25 MG TABLET PO (08:59)
[2022-08-13] MEDS: 0.9 % Sodium Chloride Flush 3 ML SYRINGE IVFLUSH ×2 (09:00→19:50)
[2022-08-13] MEDS: Tamsulosin HCL 0.4 MG CAPSULE PO (09:01)
--- NOTE | 2022-08-13 09:37 | P.PNIM_ITS ---
Subjective Subjective Date of Service: 08/13/22 Interval History: hematuria Physical Exam Vital Signs: Vital Signs: Last Vital Signs Temp 97.2 F 08/13/22 07:18 Pulse 60 08/13/22 07:18 Resp 20 08/13/22 07:18 BP 113/65 08/13/22 07:18 Pulse Ox 99 08/13/22 07:18 O2 Del Method Room Air 08/13/22 07:18 BMI result Body Mass Index 22.2 Comfortable Neck is supple Lung: Air entry equal Heart: S1,S2, normal. No rub Abd: Soft. BS + NS : Alert.No asterexis Objective Data Active Medications Acetaminophen (Acetaminophen 325 Mg Tablet) 650 mg PO Q6H PRN PRN Reason: Pain, Mild (Pain Scale 1-3) Last Admin: 08/11/22 13:28 Dose: 650 mg Documented By: SALVADOR Aspirin (Aspirin Enteric Coated 81 Mg Tablet.) 81 mg PO DAILY [facility] Last Admin: 08/09/22 08:52 Dose: 81 mg Documented By: ANJALI Atorvastatin Calcium (Atorvastatin Calcium 40 Mg Tablet) 40 mg PO BEDTIME [facility] Last Admin: 08/12/22 20:10 Dose: 40 mg Documented By: LUKE Carvedilol (Carvedilol 25 Mg Tablet) 25 mg PO BID [facility]; Protocol Last Admin: 08/13/22 08:59 Dose: 25 mg Documented By: DIONISIO Fentanyl (Fentanyl Citrate/Pf 100 Mcg/2 Ml Vial) 25 mcg IVPUSH Q5M PRN; Protocol PRN Reason: Pain, Moderate(Pain Scale 4-6) Hydromorphone HCl (Hydromorphone Hcl 0.5 Mg/0.5 Ml Syringe) 0.25 mg IVPUSH Q5M PRN; Protocol PRN Reason: Pain, Severe (Pain Scale 7-10) Last Admin: 08/08/22 20:56 Dose: 0.25 mg Documented By: MEL Mirtazapine (Mirtazapine 15 Mg Tablet) 15 mg PO BEDTIME [facility] Last Admin: 08/12/22 20:10 Dose: 15 mg Documented By: LUKE Ondansetron HCl (Ondansetron Hcl 4 Mg/2 Ml Vial) 4 mg IVPUSH Q8H PRN PRN Reason: Nausea and Vomiting Ondansetron HCl (Ondansetron Hcl 4 Mg/2 Ml Vial) 2 mg IVPUSH ONCE PRN PRN Reason: Nausea and Vomiting Oxybutynin Chloride (Oxybutynin Chloride Er 5 Mg Tab.Er.24) 5 mg PO DAILY [facility] Last Admin: 08/13/22 08:59 Dose: 5 mg Documented By: DIONISIO Sodium Chloride (0.9 % Sodium Chloride Flush 3 Ml Syringe) 3 ml IVFLUSH QSHIFT [facility] Last Admin: 08/13/22 09:00 Dose: 3 ml Documented By: DIONISIO Tamsulosin HCl (Tamsulosin Hcl 0.4 Mg Capsule) 0.4 mg PO DAILY [facility] Last Admin: 08/13/22 09:01 Dose: 0.4 mg Documented By: DIONISIO Labs 08/13/22 06:38 08/12/22 05:54 Labs: Laboratory Results - last 24 hr 08/13/22 06:38 MCV 85.8 MCH 28.1 MCHC 32.8 RDW 14.2 Plt Count 217 MPV 10.2 Absolute Nucleated RBC 0.000 Nucleated RBC % (auto) 0.0 Assessment and Plan (1) Acute kidney injury: Status: Acute (2) Hydroureteronephrosis: Status: Acute (3) Mild aphasia: Status: Acute (4) Expressive aphasia: Status: Acute (5) Speech problem: Status: Acute (6) Urine retention: Status: Acute (7) Hematuria: Status: Acute Plan 77M PMH of HTN, Afib no longer on AC (was on xarelto in 2021), chronic systolic chf, presented to the hospital by family for reported speech problem and change in mental status. acute CVA unable to tolerate asa/ac due to hematuria continue statin AC when no longer contraindicated BECKY likely due to chronic urinary retention due to possible bladder mass, ollie-I stents placed, mcgrath inserted, creatinine stable, but not improving repeat renal us iwth persistent right hydro, follow up continues to have hematuria monitor h and h follow up acute Metabolic encephalopathy related to urine retention and hx of undiagnosed dementia and UTI reorientation ? UTI completed 3 days abx, culture <10K acute on chronic Anemia mutlifactorial current acute blood loss anemia due to hematuria monitor permanent Afib not on AC, he stopped xarelto on his own continue Carvedilol will restart AC when no longer contraindicated DVT PPx mechanical due to hematuria reason for continued hospitalization:hematuria active Time Spent With Patient Time: Total time managing care of this patient today ____ minutes. Quality Stroke Does the patient have a stroke diagnosis?: No VTE Prior VTE?: No VTE Risk Level:: Medical - moderate - high VTE Device Contraindication: Treatment Not Indicated VTE Drug Contraindication: N/A - Med Ordered
[2022-08-13 10:31] LABS: Anion Gap 13 (12-20); Blood Urea Nitrogen 40 mg/dL (9-16); Calcium 7.7 mg/dL (8.4-10.2); Carbon Dioxide 24 mmol/L (22-29); Chloride 108 mmol/L (96-108); Creatinine Clr Calc Pharmacy 30.6; Estimated Glomerular Filt Rate 37; Glucose Fasting 101 mg/dL (60-99); Potassium 3.2 mmol/L (3.3-5.1); Sodium 142 mmol/L (135-145)
--- NOTE | 2022-08-13 11:05 | PM.PNNEP ---
Subjective Subjective Date of Service: 08/14/22 Interval history: hematuria Family at bedside Physical Exam Vital Signs: Vital Signs: Last Vital Signs Temp 97.2 F 08/13/22 07:18 Pulse 60 08/13/22 07:18 Resp 20 08/13/22 07:18 BP 113/65 08/13/22 07:18 Pulse Ox 99 08/13/22 07:18 O2 Del Method Room Air 08/13/22 07:18 BMI result Body Mass Index 22.2 Const: Other: Constitutional : Awake, interactive, not in distress Neck : Normal inspection, Supple Cardiovascular : RRR, no JVP, no lower extremity edema Respiratory : good bilateral air entry, no crackles, wheezes or rhonchi Gastrointestinal: soft, lax, Normal bowel sounds, Non tender Skin : Warm, Dry Urology: Mcgrath in with hematuria, no clots noticed Neurological : Alert & oriented x2, No focal deficit , CN 2-12 within normal, speech is coherent but not back to baseline and still aphasic Objective Data Labs 08/13/22 06:38 08/13/22 06:38 Labs: Laboratory Results - last 24 hr 08/13/22 08/13/22 06:38 06:38 WBC 8.4 RBC 2.88 L Hgb 8.1 L Hct 24.7 L MCV 85.8 MCH 28.1 MCHC 32.8 RDW 14.2 Plt Count 217 MPV 10.2 Absolute Nucleated RBC 0.000 Nucleated RBC % (auto) 0.0 Sodium 142 Potassium 3.2 L Chloride 108 Carbon Dioxide 24 Anion Gap 13 BUN 40 H Creatinine 1.81 H Estim Creat Clear Calc 30.6 Estimated GFR 37 Fasting Glucose 101 H Calcium 7.7 L Microbiology Microbiology Results: Microbiology 08/07/22 Unknown Urine clean catch - Urine hall top Urine Culture - Final Procedures Date of Service Date of Service: 08/14/22 Assessment & Plan Assessment and plan (1) Acute kidney injury: Status: Acute Assessment and Plan: 1. Non-Oliguuric BECKY: Marginal improvement in serum creatinine today Obs uropathy with delayed recovery w mcgrath; Baseline serum creatinine is 0.8 Persistent hydro on repeat ultrasonogram 2. Hypokalemia. 3. Anemia Keep intake more than the output Marginal improvement in serum creatinine. Replace potassium Urology follow-up for persistent hydro Continue to trend serum creatinine (2) Hematuria: Status: Acute Time Spent With Patient Time: Total time managing care of this patient today ____ minutes. Progress Note: Quality Stroke Does the patient have a stroke diagnosis?: No
[2022-08-13 11:20] VITALS: BP 108/58; PULSE 70; RESP 20; TEMP 36.5; O2SAT 98
[2022-08-13] MEDS: Potassium Chloride ER 20 MEQ TAB.ER.PRT 40 MEQ PO (12:21)
[2022-08-13 15:31] VITALS: BP 98/59; PULSE 51; RESP 20; TEMP 36.8; O2SAT 96
--- NOTE | 2022-08-13 17:33 | PC.NURSE ---
Patient remains alert and oriented X3 continues with expressive and some receptive aphasia. RO to command 4/5 sensation intact, +pedal pulses bilat no edema noted. Denies headache, dizziness or vision changes pupils PERRL 2B. Lung sounds clear denies shortness of breath or chest pain, Afib on tele. Stein cath in place with red urine. OOB to chair during shift ambulates with stand by on unit with steady gait. Potassium level reported to Dr Lenz via tigertext replacement ordered and given. Will continue to monitor and report changes
--- NOTE | 2022-08-13 17:46 | P.CNUR_ITS ---
History of Present Illness Consult details Consult date: 08/13/22 Narrative: The patient is a 77 year old male who was admitted on 08/07/22 for reported speech problem and change in mental status. In ED imaging was done showing. Bladder scan showed urine retention. Kidney function test showed elevated Cr, normal baseline 3 years ago. He was seen by Urology and is s/p right ureteral stent and has mcgrath in place. Urology reconsulted due to hematuria. Repeat renal ultrasound notes bilateral hydronephrosis, stent is seen in renal pelvis, right hydro. PMH of HTN, Afib. Acut CVA diagnosed on this admission. [address] mcgrath placed. Reevaluate with CT imaging. Monitor Hb. Family prese nt during evaluation. Review of Systems Review of Systems: 10 point ROS negative other than stated in [facility] Past Medical History Medical History Afib Cardiomyopathy RBBB Family History Family History Father No problems noted. Mother Cancer Sister Cancer Other Mental health disorder Surgical History Surgical History No pertinent past surgical history Social History Social History Household Members: None Housing: Apartment Do you presently have visiting nurse or other home services: No Alcohol intake: unknown Patient Tobacco Use Status: Never used Tobacco Cigarettes Per Day: 4 e-Cigarette/Vaping Use: Never Used service: No Current occupational status: unemployed Cognitive needs: No Hearing needs: No Vision needs: No Meds Allergies Allergy/AdvReac Type Severity Reaction Status Date / Time No Known Allergies Allergy Verified 05/12/22 11:42 Active Medications: Current Medications Acetaminophen (Acetaminophen 325 Mg Tablet) 650 mg PO Q6H PRN PRN Reason: Pain, Mild (Pain Scale 1-3) Last Admin: 08/11/22 13:28 Dose: 650 mg Aspirin (Aspirin Enteric Coated 81 Mg Tablet.) 81 mg PO DAILY [facility] Last Admin: 08/09/22 08:52 Dose: 81 mg Atorvastatin Calcium (Atorvastatin Calcium 40 Mg Tablet) 40 mg PO BEDTIME [facility]PL[facility] Last Admin: 08/12/22 20:10 Dose: 40 mg Carvedilol (Carvedilol 25 Mg Tablet) 25 mg PO BID [facility]; Protocol Last Admin: 08/13/22 08:59 Dose: 25 mg Fentanyl (Fentanyl Citrate/Pf 100 Mcg/2 Ml Vial) 25 mcg IVPUSH Q5M PRN; Pro tocol PRN Reason: Pain, Moderate(Pain Scale 4-6) Hydromorphone HCl (Hydromorphone Hcl 0.5 Mg/0.5 Ml Syringe) 0.25 mg IVPUSH Q5M PRN; Protocol PRN Reason: Pain, Severe (Pain Scale 7-10) Last Admin: 08/08/22 20:56 Dose: 0.25 mg Mirtazapine (Mirtazapine 15 Mg Tablet) 15 mg PO BEDTIME [facility] Last Admin: 08/12/22 20:10 Dose: 15 mg Ondansetron HCl (Ondansetron Hcl 4 Mg/2 Ml Vial) 4 mg IVPUSH Q8H PRN PRN Reason: Nausea and Vomiting Ondansetron HCl (Ondansetron Hcl 4 Mg/2 Ml Vial) 2 mg IVPUSH ONCE PRN PRN Reason: Nausea and Vomiting Oxybutynin Chloride (Oxybutynin Chloride Er 5 Mg Tab.Er.24) 5 mg PO DAILY [facility] Last Admin: 08/13/22 08:59 Dose: 5 mg Sodium Chloride (0.9 % Sodium Chloride Flush 3 Ml Syringe) 3 ml IVFLUSH QSHIFT REPLACED BY [facility] Last Admin: 08/13/22 15:37 Dose: Not Given Tamsulosin HCl (Tamsulosin Hcl 0.4 Mg Capsule) 0.4 mg PO DAILY [facility] Last Admin: 08/13/22 09:01 Dose: 0.4 mg Physical Exam Vital Signs: Vital Signs: Last Vital Signs Temp 98.2 F 08/13/22 15:31 Pulse 51 08/13/22 15:31 Resp 20 08/13/22 15:31 BP 98/59 L 08/13/22 15:31 Pulse Ox 96 08/13/22 15:31 O2 Del Method Room Air 08/13/22 17:00 BMI result Body Mass Index 22.2 Const: General: healthy appearing, no acute distress and well developed Orientation/consciousness: patient oriented x3 HEENT: Head: Yes normocephalic and Yes atraumatic Eyes: Conjunctivae: conjunctivae normal Neck: Neck: Yes normal visual inspection Chest: Chest palpation & inspection: normal inspection of the chest Resp: Effort & Inspection: normal respiratory effort Cardio: Rate: regular rate GI: Inspection: Yes normal to inspection Palpation (GI): Soft to palpation : Other: mcgrath in place, grossly bloody urine, no clots Penis: normal penis Scrotum: scrotum normal Skin: General skin exam: no rashes or lesions noted Neuro: General: patient oriented x3 Extrem: General: No pedal edema Psych: Appearance: grossly normal Affect: normal affect Results Labs 08/13/22 06:38 08/13/22 06:38 Labs: Abnormal lab results 08/13/22 08/13/22 Range/Units 06:38 06:38 RBC 2.88 L (4.60-5.80) X10*6/uL Hgb 8.1 L (14.0-18.0) g/dl Hct 24.7 L (42.0-52.0) % Potassium 3.2 L (3.3-5.1) mmol/L BUN 40 H (9-16) mg/dL Creatinine 1.81 H (0.5-1.4) mg/dL Fasting Glucose 101 H (60-99) mg/dL Calcium 7.7 L (8.4-10.2) mg/dL Short CBC 08/13/22 Range/Units 06:38 WBC 8.4 (4.8-10.8) X10*3/uL Hgb 8.1 L (14.0-18.0) g/dl Hct 24.7 L (42.0-52.0) % Plt Count 217 (160-400) X10*3/uL BMP 08/13/22 06:38 Sodium 142 Potassium 3.2 L Chloride 108 Carbon Dioxide 24 BUN 40 H Creatinine 1.81 H Calcium 7.7 L Urine 08/07/22 Range/Units 15:35 Urine Color Yellow Urine Appearance Cloudy Urine pH 6.5 (5.0-9.0) Ur Specific [place] 1.010 (1.005-1.025) Urine Protein Negative (Neg-Trace) mg/dL Urine Glucose (UA) Negative (Negative) mg/dL Imaging Abdomen CT scan report/results: report reviewed and image reviewed US - kidney/bladder: report reviewed Additional studies: Date of Service: 08/11/22 EXAMINATION: US RETROPERITONEAL LIMITED (RENAL ONLY) CLINICAL INFORMATION: Persistent elevation in creatinine. Follow-up hydronephrosis COMPARISON: CT abdomen and pelvis 08/08/2022. Renal ultrasound 08/07/2022. Fluoroscopy exam 08/08/2022 TECHNIQUE: Real-time imaging of the kidneys.? FINDINGS: RIGHT KIDNEY: 11.9 x 5.7 x 7.0 cm (SAG x AP x TRV). The kidney is normal in size, contour, and echogenicity. Renal cortical thickness is normal. There is still moderate right hydronephrosis. This is minimally improved from prior exam. There is a stent seen in the right renal collecting system. Right renal stone in the lower pole not well appreciated. LEFT KIDNEY: 12.7 x 6.0 x 5.4 cm (SAG x AP x TRV). The kidney is normal in size, contour, and echogenicity. Renal cortical thickness is normal. There is still severe left hydronephrosis. There is dilatation of the visualized left proximal ureter. There is a small cyst in the lateral midpole. No renal calculi. IMPRESSION: Persistent moderate right hydronephrosis minimally improved from previous exams. Stent seen in the right renal collecting system. Severe left hydronephrosis unchanged. Date of Service: 08/08/22 EXAMINATION: CT ABDOMEN AND PELVIS WITHOUT CONTRAST? CLINICAL INFORMATION: Evaluate pelvic mass? COMPARISON: Previous CT of the abdomen and pelvis November 2021 and renal and bladder ultrasound August 2022 TECHNIQUE: Multidetector volumetric imaging was performed from the superior aspect of the liver through the pubic symphysis. Sagittal and coronal reformatted images were obtained on the technologist's workstation.? This CT examination was performed using dose optimization techniques as appropriate, variously including the following: *Automated exposure control *Adjustment of mA and/or kV according to patient size (this includes techniques or standardized protocols for targeted exams where dose is matched to indication/reason for exam; i.e. extremities or head) *Use of iterative reconstruction technique DLP: 363 mGy-cm FINDINGS: LUNG BASES: The lung bases are clear. The heart is enlarged. There is a small pericardial effusion.? LIVER, GALLBLADDER, AND BILIARY TREE: The liver is normal in size, shape, and attenuation. No focal hepatic lesion or biliary ductal dilatation is present. The gallbladder is unremarkable with no evidence of radiopaque gallstones, gallbladder wall thickening, or obvious pericholecystic inflammatory changes.? PANCREAS: Unremarkable.? SPLEEN: Unremarkable.? ADRENAL GLANDS: Unremarkable.? KIDNEYS AND URETERS: There is severe bilateral hydronephrosis and ureteral dilatation down to the bladder. This is new or increased from previous CT from 2018. There is a 4 mm stone lower pole of the right kidney. Question right UVJ versus bladder stones. No left ureteral stone is seen. BLADDER: There is a Mcgrath catheter in the bladder. There is a small amount of fluid and air seen in the bladder probably related to Mcgrath catheter placement. There is diffuse bladder wall thickening. There is stranding of the perivesicular fat. There are 2 calcifications in the right lateral bladder near the right UVJ region suggestive of bladder /right UVJ stones. The prostate gland is enlarged and protrudes into the base of the bladder.? GASTROINTESTINAL TRACT: Diverticulosis of the colon. No evidence of diverticulitis. Small and large bowel is otherwise normal.? ABDOMINAL WALL: Small bilateral inguinal hernias containing fat. Small umbilical hernia containing fat.? LYMPH NODES: Normal. VASCULAR: Unremarkable. PELVIC VISCERA: The prostate gland is enlarged and protrudes into the base of the bladder. The prostate gland measures 5.4 x 5.8 cm in AP and transverse dimension.? OSSEOUS STRUCTURES: There are degenerative changes of the spine.? IMPRESSION: Severe bilateral hydronephrosis and ureteral dilatation down to the bladder. 4 mm stone in the lower pole of the right kidney. 2 right-sided bladder stones versus right UVJ stone measuring 4 and 5 mm. No left ureteral stone. Diffuse bladder wall thickening and stranding of the perivesicular fat. Infectious, inflammatory and neoplastic bladder process should be considered. Enlarged prostate gland protrudes into the base of the bladder. Diverticulosis. Assessment and Plan (1) Acute renal failure: Status: Acute (2) Hydroureteronephrosis: Status: Acute (3) Hematuria: Status: Acute (4) Kidney stone: Status: Chronic right kidney stone Plan [address] mcgrath placed the patient is s/p right ureteral stent repeat CT Abd/pelvis creat slowly improving Time Spent With Patient Time: Total time managing care of this patient today ____ minutes. Procedures Date of Service Date of Service: 08/14/22 Catheter Insertion (Urinary) Date of insertion: 08/13/22 Replacement of catheter present on admission: Yes Patient has the following: other (HEMATURIA) Catheter type/location: 3-way Urethral Catheter balloon size (mL): 30 and Other Catheter balloon amount: 20 Results: successfully catheterized-immediate flow and consulted Procedure performed: without complications
[2022-08-13 19:14] VITALS: BP 97/54; PULSE 62; RESP 20; TEMP 36.7; O2SAT 98
[2022-08-13] MEDS: Atorvastatin Calcium 40 MG TABLET PO (20:36)
[2022-08-13] MEDS: Lidocaine HCl 2 % Urojet 10 ML JEL.PF.APP TOPICAL (20:36)
[2022-08-13] MEDS: Mirtazapine 15 MG TABLET PO (20:36)
[2022-08-14] VITALS (7 sets, daily range): BP systolic 82–119; BP diastolic 50–68; PULSE 70–90; RESP 17–20; TEMP 36.6–37.2; O2SAT 96–100
[2022-08-14 06:39] LABS: Anion Gap 11 (12-20); Blood Urea Nitrogen 38 mg/dL (9-16); Calcium 7.9 mg/dL (8.4-10.2); Carbon Dioxide 25 mmol/L (22-29); Chloride 111 mmol/L (96-108); Creatinine Clr Calc Pharmacy 33.4; Estimated Glomerular Filt Rate 40; Glucose Fasting 105 mg/dL (60-99); Potassium 4.1 mmol/L (3.3-5.1); Sodium 143 mmol/L (135-145)
[2022-08-14 06:43] LABS: Hematocrit 24.6 % (42.0-52.0); Hemoglobin 7.9 g/dl (14.0-18.0); Mean Corpuscular HGB Conc 32.1 g/dl (31.0-36.0); Mean Corpuscular Hemoglobin 28.1 pg (27.0-33.0); Mean Corpuscular Volume 87.5 fL (80.0-98.0); Mean Platelet Volume 10.6 fL (9.4-12.4); Platelet Count 228 X10*3/uL (160-400); Red Blood Count 2.81 X10*6/uL (4.60-5.80); Red Cell Distribution Width 14.3 % (11.0-16.0); White Blood Count 7.3 X10*3/uL (4.8-10.8)
--- NOTE | 2022-08-14 08:15 | HO.PM.IMPN ---
Subjective Subjective Date of Service: 08/14/22 Interval History: cbi, less hematuria Physical Exam Vital Signs: Vital Signs: Last Vital Signs Temp 98.2 F 08/14/22 07:47 Pulse 88 08/14/22 07:47 Resp 20 08/14/22 07:47 BP 119/62 08/14/22 07:47 Pulse Ox 98 08/14/22 07:47 O2 Del Method Room Air 08/14/22 07:47 BMI result Body Mass Index 22.2 punch color urine, expressive aphasia Objective Data Active Medications Acetaminophen (Acetaminophen 325 Mg Tablet) 650 mg PO Q6H PRN PRN Reason: Pain, Mild (Pain Scale 1-3) Last Admin: 08/11/22 13:28 Dose: 650 mg Documented By: SALVADOR Aspirin (Aspirin Enteric Coated 81 Mg Tablet.) 81 mg PO DAILY [facility] Last Admin: 08/09/22 08:52 Dose: 81 mg Documented By: ANJALI Atorvastatin Calcium (Atorvastatin Calcium 40 Mg Tablet) 40 mg PO BEDTIME [facility] Last Admin: 08/13/22 20:36 Dose: 40 mg Documented By: MEL Carvedilol (Carvedilol 25 Mg Tablet) 25 mg PO BID [facility]; Protocol Last Admin: 08/13/22 20:35 Dose: Not Given Documented By: MEL Non-Admin Reason: Decreased Blood Pressure Hydromorphone HCl (Hydromorphone Hcl 0.5 Mg/0.5 Ml Syringe) 0.25 mg IVPUSH Q5M PRN; Protocol PRN Reason: Pain, Severe (Pain Scale 7-10) Last Admin: 08/08/22 20:56 Dose: 0.25 mg Documented By: MEL Mirtazapine (Mirtazapine 15 Mg Tablet) 15 mg PO BEDTIME [facility] Last Admin: 08/13/22 20:36 Dose: 15 mg Documented By: MEL Ondansetron HCl (Ondansetron Hcl 4 Mg/2 Ml Vial) 4 mg IVPUSH Q8H PRN PRN Reason: Nausea and Vomiting Ondansetron HCl (Ondansetron Hcl 4 Mg/2 Ml Vial) 2 mg IVPUSH ONCE PRN PRN Reason: Nausea and Vomiting Oxybutynin Chloride (Oxybutynin Chloride Er 5 Mg Tab.Er.24) 5 mg PO DAILY [facility] Last Admin: 08/13/22 08:59 Dose: 5 mg Documented By: DIONISIO Sodium Chloride (0.9 % Sodium Chloride Flush 3 Ml Syringe) 3 ml IVFLUSH QSHIFT [facility] Last Admin: 08/13/22 19:50 Dose: 3 ml Documented By: MEL Tamsulosin HCl (Tamsulosin Hcl 0.4 Mg Capsule) 0.4 mg PO DAILY [facility] Last Admin: 08/13/22 09:01 Dose: 0.4 mg Documented By: DIONISIO Labs 08/14/22 05:43 08/14/22 05:43 Labs: Laboratory Results - last 24 hr 08/13/22 08/14/22 08/14/22 06:38 05:43 05:43 MCV 87.5 MCH 28.1 MCHC 32.1 RDW 14.3 Plt Count 228 MPV 10.6 Absolute Nucleated RBC 0.000 Nucleated RBC % (auto) 0.0 Anion Gap 13 11 L Estim Creat Clear Calc 30.6 33.4 Estimated GFR 37 40 Fasting Glucose 101 H 105 H Calcium 7.7 L 7.9 L Assessment and Plan (1) Hematuria: Status: Acute Plan 77M PMH of HTN, Afib no longer on AC (was on xarelto in 2021), chronic systolic chf, presented to the hospital by family for reported speech problem and change in mental status. acute CVA unable to tolerate asa/ac due to hematuria continue statin AC when no longer contraindicated BECKY likely due to chronic urinary retention due to possible bladder mass, ollie-I stents placed, mcgrath inserted, creatinine with some improvement over last couple days repeat renal us iwth persistent right hydro, gu following continues to have hematuria - now on cbi monitor h and h acute Metabolic encephalopathy related to urine retention and hx of undiagnosed dementia and UTI reorientation ? UTI completed 3 days abx, culture <10K acute on chronic Anemia mutlifactorial current acute blood loss anemia due to hematuria monitor permanent Afib not on AC, he stopped xarelto on his own continue Carvedilol will restart AC when no longer contraindicated DVT PPx mechanical due to hematuria reason for continued hospitalization:hematuria active Time Spent With Patient Time: Total time managing care of this patient today ____ minutes. Quality Stroke Does the patient have a stroke diagnosis?: No VTE Prior VTE?: No VTE Risk Level:: Medical - moderate - high VTE Device Contraindication: Treatment Not Indicated VTE Drug Contraindication: N/A - Med Ordered
[2022-08-14] MEDS: carvediloL 25 MG TABLET PO ×2 (10:54→20:41)
[2022-08-14] MEDS: Tamsulosin HCL 0.4 MG CAPSULE PO (10:54)
[2022-08-14] MEDS: 0.9 % Sodium Chloride Flush 3 ML SYRINGE IVFLUSH ×3 (10:55→20:43)
[2022-08-14] MEDS: oxyBUTYnin chloride ER 5 MG TAB.ER.24 PO (10:55)
--- NOTE | 2022-08-14 12:13 | PM.PNNEP ---
Subjective Subjective Date of Service: 08/15/22 Interval history: cbi, less hematuria Urology note appreciated Physical Exam Vital Signs: Vital Signs: Last Vital Signs Temp 98.2 F 08/14/22 11:42 Pulse 76 08/14/22 11:42 Resp 20 08/14/22 11:42 BP 115/68 08/14/22 11:42 Pulse Ox 97 08/14/22 11:42 O2 Del Method Room Air 08/14/22 11:42 BMI result Body Mass Index 22.2 Const: Other: Constitutional : Awake, interactive, not in distress Neck : Normal inspection, Supple Cardiovascular : RRR, no JVP, no lower extremity edema Respiratory : good bilateral air entry, no crackles, wheezes or rhonchi Gastrointestinal: soft, lax, Normal bowel sounds, Non tender Skin : Warm, Dry Urology: Mcgrath in with hematuria, no clots noticed Neurological : Alert & oriented x2, No focal deficit , CN 2-12 within normal, speech is coherent but not back to baseline and still aphasic Objective Data Labs 08/14/22 05:43 08/14/22 05:43 Labs: Laboratory Results - last 24 hr 08/14/22 08/14/22 05:43 05:43 WBC 7.3 RBC 2.81 L Hgb 7.9 L Hct 24.6 L MCV 87.5 MCH 28.1 MCHC 32.1 RDW 14.3 Plt Count 228 MPV 10.6 Absolute Nucleated RBC 0.000 Nucleated RBC % (auto) 0.0 Sodium 143 Potassium 4.1 D Chloride 111 H Carbon Dioxide 25 Anion Gap 11 L BUN 38 H Creatinine 1.66 H Estim Creat Clear Calc 33.4 Estimated GFR 40 Fasting Glucose 105 H Calcium 7.9 L Microbiology Microbiology Results: Microbiology 08/07/22 Unknown Urine clean catch - Urine hall top Urine Culture - Final Procedures Date of Service Date of Service: 08/15/22 Assessment & Plan Assessment and plan (1) Acute kidney injury: Status: Acute Assessment and Plan: 1. Non-Oliguuric BECKY: Marginal improvement in serum creatinine today Obs uropathy with delayed recovery w mcgrath; Baseline serum creatinine is 0.8 Persistent hydro on repeat ultrasonogram 2. Hypokalemia. 3. Anemia Keep intake more than the output Marginal improvement in serum creatinine. trending down gradually Urology follow-up for persistent hydro Continue to trend serum creatinine (2) Hematuria: Status: Acute Time Spent With Patient Time: Total time managing care of this patient today ____ minutes. Progress Note: Quality Stroke Does the patient have a stroke diagnosis?: No
[2022-08-14] MEDS: HYDROmorphone HCl 0.5 MG/0.5 ML SYRINGE 0.25 MG IVPUSH (18:27)
[2022-08-14] MEDS: Atorvastatin Calcium 40 MG TABLET PO (20:40)
[2022-08-14] MEDS: Mirtazapine 15 MG TABLET PO (20:41)
[2022-08-14] MEDS: Acetaminophen 325 MG TABLET 650 MG PO (20:41)
[2022-08-15] VITALS (10 sets, daily range): BP systolic 100–160; BP diastolic 50–84; PULSE 54–87; RESP 16–20; TEMP 36.4–36.9; O2SAT 96–99
[2022-08-15] MEDS: 0.9 % Sodium Chloride 1,000 ML 999 ML IV (00:10)
[2022-08-15] MEDS: HYDROmorphone HCl 0.5 MG/0.5 ML SYRINGE 0.25 MG IVPUSH (05:30)
[2022-08-15 05:50] LABS: Hematocrit 22.9 % (42.0-52.0); Hemoglobin 7.2 g/dl (14.0-18.0); Mean Corpuscular HGB Conc 31.4 g/dl (31.0-36.0); Mean Corpuscular Hemoglobin 27.4 pg (27.0-33.0); Mean Corpuscular Volume 87.1 fL (80.0-98.0); Mean Platelet Volume 10.3 fL (9.4-12.4); Platelet Count 225 X10*3/uL (160-400); Red Blood Count 2.63 X10*6/uL (4.60-5.80); Red Cell Distribution Width 14.2 % (11.0-16.0); White Blood Count 7.9 X10*3/uL (4.8-10.8)
[2022-08-15 06:03] LABS: Anion Gap 11 (12-20); Blood Urea Nitrogen 34 mg/dL (9-16); Calcium 7.6 mg/dL (8.4-10.2); Carbon Dioxide 23 mmol/L (22-29); Chloride 111 mmol/L (96-108); Creatinine Clr Calc Pharmacy 35.3; Estimated Glomerular Filt Rate 43; Glucose Fasting 115 mg/dL (60-99); Potassium 3.7 mmol/L (3.3-5.1); Sodium 141 mmol/L (135-145)
--- NOTE | 2022-08-15 08:15 | HO.PM.IMPN ---
Subjective Subjective Date of Service: 08/15/22 Interval History: hematuria Physical Exam Vital Signs: Vital Signs: Last Vital Signs Temp 97.6 F 08/15/22 06:59 Pulse 67 08/15/22 06:59 Resp 20 08/15/22 06:59 BP 105/51 L 08/15/22 06:59 Pulse Ox 97 08/15/22 06:59 O2 Del Method Room Air 08/15/22 06:59 BMI result Body Mass Index 22.2 Const: Other: Constitutional : Awake, interactive, not in distress Neck : Normal inspection, Supple Cardiovascular : RRR, no JVP, no lower extremity edema Respiratory : good bilateral air entry, no crackles, wheezes or rhonchi Gastrointestinal: soft, lax, Normal bowel sounds, Non tender Skin : Warm, Dry Urology: Mcgrath in with hematuria, no clots noticed Neurological : Alert & oriented x2, No focal deficit , CN 2-12 within normal, speech is coherent but not back to baseline and still aphasic Objective Data Active Medications Acetaminophen (Acetaminophen 325 Mg Tablet) 650 mg PO Q6H PRN PRN Reason: Pain, Mild (Pain Scale 1-3) Last Admin: 08/14/22 20:41 Dose: 650 mg Documented By: LIZ Aspirin (Aspirin Enteric Coated 81 Mg Tablet.) 81 mg PO DAILY [facility] Last Admin: 08/09/22 08:52 Dose: 81 mg Documented By: ANJALI Atorvastatin Calcium (Atorvastatin Calcium 40 Mg Tablet) 40 mg PO BEDTIME [facility] Last Admin: 08/14/22 20:40 Dose: 40 mg Documented By: LIZ Carvedilol (Carvedilol 12.5 Mg Tablet) 12.5 mg PO BID [facility]; Protocol Hydromorphone HCl (Hydromorphone Hcl 0.5 Mg/0.5 Ml Syringe) 0.25 mg IVPUSH Q5M PRN; Protocol PRN Reason: Pain, Severe (Pain Scale 7-10) Last Admin: 08/15/22 05:30 Dose: 0.25 mg Documented By: LIZ Mirtazapine (Mirtazapine 15 Mg Tablet) 15 mg PO BEDTIME [facility] Last Admin: 08/14/22 20:41 Dose: 15 mg Documented By: LIZ Ondansetron HCl (Ondansetron Hcl 4 Mg/2 Ml Vial) 4 mg IVPUSH Q8H PRN PRN Reason: Nausea and Vomiting Ondansetron HCl (Ondansetron Hcl 4 Mg/2 Ml Vial) 2 mg IVPUSH ONCE PRN PRN Reason: Nausea and Vomiting Oxybutynin Chloride (Oxybutynin Chloride Er 5 Mg Tab.Er.24) 5 mg PO DAILY [facility] Last Admin: 08/14/22 10:55 Dose: 5 mg Documented By: RINKU Sodium Chloride (0.9 % Sodium Chloride Flush 3 Ml Syringe) 3 ml IVFLUSH QSHIFT [facility] Last Admin: 08/14/22 20:43 Dose: 3 ml Documented By: LIZ Tamsulosin HCl (Tamsulosin Hcl 0.4 Mg Capsule) 0.4 mg PO DAILY [facility] Last Admin: 08/14/22 10:54 Dose: 0.4 mg Documented By: RINKU Labs 08/15/22 05:33 08/15/22 05:33 Labs: Laboratory Results - last 24 hr 08/15/22 08/15/22 08/15/22 05:33 05:33 07:06 MCV 87.1 MCH 27.4 MCHC 31.4 RDW 14.2 Plt Count 225 MPV 10.3 Absolute Nucleated RBC 0.000 Nucleated RBC % (auto) 0.0 Anion Gap 11 L Estim Creat Clear Calc 35.3 Estimated GFR 43 Fasting Glucose 115 H Calcium 7.6 L Crossmatch See Detail Assessment and Plan (1) Hematuria: Status: Acute Plan 77M PMH of HTN, Afib no longer on AC (was on xarelto in 2021), chronic systolic chf, presented to the hospital by family for reported speech problem and change in mental status. acute CVA unable to tolerate asa/ac due to hematuria continue statin AC when no longer contraindicated BECKY likely due to chronic urinary retention due to possible bladder mass, ollie-I stents placed, mcgrath inserted, creatinine with some improvement over last couple days continues to have hematuria - now on cbi monitor h and h acute Metabolic encephalopathy related to urine retention and hx of undiagnosed dementia and UTI reorientation ? 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 Quality Stroke Does the patient have a stroke diagnosis?: No VTE Prior VTE?: No VTE Risk Level:: Medical - moderate - high VTE Device Contraindication: Treatment Not Indicated VTE Drug Contraindication: N/A - Med Ordered
[2022-08-15] MEDS: oxyBUTYnin chloride ER 5 MG TAB.ER.24 PO (09:03)
[2022-08-15] MEDS: Tamsulosin HCL 0.4 MG CAPSULE PO (09:04)
[2022-08-15] MEDS: 0.9 % Sodium Chloride Flush 3 ML SYRINGE IVFLUSH ×2 (09:04→16:02)
--- NOTE | 2022-08-15 09:29 | PM.PNNEP ---
Subjective Subjective Date of Service: 08/16/22 Interval history: hematuria Family at bedside CBI- urine is clearing Physical Exam Vital Signs: Vital Signs: Last Vital Signs Temp 97.6 F 08/15/22 06:59 Pulse 67 08/15/22 06:59 Resp 20 08/15/22 06:59 BP 105/51 L 08/15/22 06:59 Pulse Ox 97 08/15/22 06:59 O2 Del Method Room Air 08/15/22 06:59 BMI result Body Mass Index 22.2 Comfortable Neck is supple Lung: Air entry equal Heart: S1,S2, normal. No rub Abd: Soft. BS + NS : Alert.No asterexis Ext: No edema Const: Other: Constitutional : Awake, interactive, not in distress Neck : Normal inspection, Supple Cardiovascular : RRR, no JVP, no lower extremity edema Respiratory : good bilateral air entry, no crackles, wheezes or rhonchi Gastrointestinal: soft, lax, Normal bowel sounds, Non tender Skin : Warm, Dry Urology: Mcgrath in with hematuria, no clots noticed Neurological : Alert & oriented x2, No focal deficit , CN 2-12 within normal, speech is coherent but not back to baseline and still aphasic Objective Data Labs 08/15/22 05:33 08/15/22 05:33 Labs: Laboratory Results - last 24 hr 08/15/22 08/15/22 08/15/22 05:33 05:33 07:06 WBC 7.9 RBC 2.63 L Hgb 7.2 L Hct 22.9 L MCV 87.1 MCH 27.4 MCHC 31.4 RDW 14.2 Plt Count 225 MPV 10.3 Absolute Nucleated RBC 0.000 Nucleated RBC % (auto) 0.0 Sodium 141 Potassium 3.7 Chloride 111 H Carbon Dioxide 23 Anion Gap 11 L BUN 34 H Creatinine 1.57 H Estim Creat Clear Calc 35.3 Estimated GFR 43 Fasting Glucose 115 H Calcium 7.6 L Blood Type O Positive Antibody Screen NEGATIVE Crossmatch See Detail Microbiology Microbiology Results: Microbiology 08/07/22 Unknown Urine clean catch - Urine hall top Urine Culture - Final Procedures Date of Service Date of Service: 08/16/22 Assessment & Plan Assessment and plan (1) Acute kidney injury: Status: Acute Assessment and Plan: 1. Non-Oliguuric BECKY: Marginal improvement in serum creatinine today Obs uropathy with delayed recovery w mcgrath; Baseline serum creatinine is 0.8 Persistent hydro on repeat ultrasonogram 2. Hypokalemia. 3. Anemia Keep intake more than the output Marginal improvement in serum creatinine. trending down gradually Urology follow-up for persistent hydro Continue to follow renal function (2) Hematuria: Status: Acute Time Spent With Patient Time: Total time managing care of this patient today ____ minutes. Progress Note: Quality Stroke Does the patient have a stroke diagnosis?: No
--- NOTE | 2022-08-15 10:24 | MHC.CM.PN ---
Per ROUNDS discussion, Patient is not yet medically cleared for dc (CBI/Hematuria); home with new vna is the goal and CM will continue to follow.
--- NOTE | 2022-08-15 18:00 | MHC.SL.SOA ---
Referring Provider: Dr. Dobbs Reason for Referral: New onset Aphasia Date of Plan of Treatment:08/09/22 Onset of Symptoms/Illness:08/09/22 Date Treatment Started:08/09/22 Medical Diagnosis:UTI, Acute CVA Primary Speech Language Diagnosis:R47.01 Aphasia Reason for Visit:15675 Individual Treatment Subjective:Pt was awake and alert, accompanied by several family members. Pt appeared to be in positive spirits, as evidenced by frequent smiling and joking with his family and the clinician. Objective: Pt seen for f/u regarding pt's presentation of aphasia. Pt's family reports that pt's use of Korean has increased since last week, but he is continuing to use more Yi than he typically would have prior to having a stroke. They are also noticing pt has been having difficulty articulating longer words and words beginning with the /s/ sound. Pt stated, I know what I want to say...it is in here (pointing to head), but...but... Assessment:Pt administered standard version of BNT in part, with prompts mainly in Korean with some Yi. Pt correctly named 8 of 15 words in both Yi and Korean without cues. Pt produced frequent paraphasias (i.e. named rehanger as camisa /shirt). Pt appeared aware of these substitutions and made attempts to self-correct. Pt was observed to independently prompt himself by describing the target word (i.e. jaxon /flower for arbol /tree) and gesturing (i.e. gesturing motion for brushing teeth ). After a short time delay and/or additional verbal cues, pt was able to name an additional 3 words. Pt exhibited significant difficulty repeating words and phrases despite many attempts. Pt perseverated on previously stated words as well. Recommend continued speech therapy during hospitalization and at next level of care. Notes: Per CM note, d/c goal is home w/ VNA. Recommend continue speech therapy for moderate receptive-expressive aphasia. Seen by: Graduate/Clinical Fellow: No Supervisory Statement: f_Reg Query Last Value , MHC.AU.SIGNATUR Speech Language Pathologist: Ewelina Lees M.A., CCC-FIELD OPERATOR
[2022-08-15] MEDS: Atorvastatin Calcium 40 MG TABLET PO (20:32)
[2022-08-15] MEDS: carvediloL 12.5 MG TABLET PO (20:33)
[2022-08-15] MEDS: Mirtazapine 15 MG TABLET PO (20:33)
[2022-08-16] VITALS (7 sets, daily range): BP systolic 100–134; BP diastolic 50–71; PULSE 48–72; RESP 16–20; TEMP 36.3–37.1; O2SAT 96–99
[2022-08-16] MEDS: 0.9 % Sodium Chloride Flush 3 ML SYRINGE IVFLUSH ×2 (00:16→08:26)
[2022-08-16 05:34] LABS: Hemoglobin 8.1 g/dl (14.0-18.0); Mean Corpuscular HGB Conc 32.4 g/dl (31.0-36.0); Mean Corpuscular Hemoglobin 27.9 pg (27.0-33.0); Mean Corpuscular Volume 86.2 fL (80.0-98.0); Mean Platelet Volume 9.7 fL (9.4-12.4); Platelet Count 219 X10*3/uL (160-400); White Blood Count 8.6 X10*3/uL (4.8-10.8)
[2022-08-16 06:07] LABS: Anion Gap 12 (12-20); Blood Urea Nitrogen 35 mg/dL (9-16); Calcium 7.9 mg/dL (8.4-10.2); Carbon Dioxide 23 mmol/L (22-29); Chloride 111 mmol/L (96-108); Creatinine Clr Calc Pharmacy 37.2; Estimated Glomerular Filt Rate 46; Glucose Fasting 103 mg/dL (60-99); Potassium 3.8 mmol/L (3.3-5.1); Sodium 142 mmol/L (135-145)
[2022-08-16] MEDS: oxyBUTYnin chloride ER 5 MG TAB.ER.24 PO (08:26)
[2022-08-16] MEDS: Tamsulosin HCL 0.4 MG CAPSULE PO (08:27)
--- NOTE | 2022-08-16 08:56 | HO.PM.IMPN ---
Subjective Subjective Date of Service: 08/16/22 Interval History: hematuria Physical Exam Vital Signs: Vital Signs: Last Vital Signs Temp 98.8 F 08/16/22 07:22 Pulse 61 08/16/22 07:22 Resp 20 08/16/22 07:22 BP 110/61 08/16/22 07:22 Pulse Ox 97 08/16/22 07:22 O2 Del Method Room Air 08/16/22 07:22 BMI result Body Mass Index 22.2 Comfortable Neck is supple Lung: Air entry equal Heart: S1,S2, normal. No rub Abd: Soft. BS + NS : Alert.No asterexis Ext: No edema Const: Other: Constitutional : Awake, interactive, not in distress Neck : Normal inspection, Supple Cardiovascular : RRR, no JVP, no lower extremity edema Respiratory : good bilateral air entry, no crackles, wheezes or rhonchi Gastrointestinal: soft, lax, Normal bowel sounds, Non tender Skin : Warm, Dry Urology: Mcgrath in with hematuria, no clots noticed Neurological : Alert & oriented x2, No focal deficit , CN 2-12 within normal, speech is coherent but not back to baseline and still aphasic Objective Data Active Medications Acetaminophen (Acetaminophen 325 Mg Tablet) 650 mg PO Q6H PRN PRN Reason: Pain, Mild (Pain Scale 1-3) Last Admin: 08/14/22 20:41 Dose: 650 mg Documented By: LIZ Aspirin (Aspirin Enteric Coated 81 Mg Tablet.) 81 mg PO DAILY [facility] Last Admin: 08/09/22 08:52 Dose: 81 mg Documented By: ANJALI Atorvastatin Calcium (Atorvastatin Calcium 40 Mg Tablet) 40 mg PO BEDTIME [facility] Last Admin: 08/15/22 20:32 Dose: 40 mg Documented By: MAISHA Carvedilol (Carvedilol 12.5 Mg Tablet) 12.5 mg PO BID [facility]; Protocol Last Admin: 08/16/22 08:26 Dose: Not Given Documented By: DIONISIO Non-Admin Reason: Decreased Heart Rate Hydromorphone HCl (Hydromorphone Hcl 0.5 Mg/0.5 Ml Syringe) 0.25 mg IVPUSH Q5M PRN; Protocol PRN Reason: Pain, Severe (Pain Scale 7-10) Last Admin: 08/15/22 05:30 Dose: 0.25 mg Documented By: LIZ Mirtazapine (Mirtazapine 15 Mg Tablet) 15 mg PO BEDTIME [facility] Last Admin: 08/15/22 20:33 Dose: 15 mg Documented By: MAISHA Ondansetron HCl (Ondansetron Hcl 4 Mg/2 Ml Vial) 4 mg IVPUSH Q8H PRN PRN Reason: Nausea and Vomiting Ondansetron HCl (Ondansetron Hcl 4 Mg/2 Ml Vial) 2 mg IVPUSH ONCE PRN PRN Reason: Nausea and Vomiting Oxybutynin Chloride (Oxybutynin Chloride Er 5 Mg Tab.Er.24) 5 mg PO DAILY [facility] Last Admin: 08/16/22 08:26 Dose: 5 mg Documented By: DIONISIO Sodium Chloride (0.9 % Sodium Chloride Flush 3 Ml Syringe) 3 ml IVFLUSH QSHIFT [facility] Last Admin: 08/16/22 08:26 Dose: 3 ml Documented By: DIONISIO Tamsulosin HCl (Tamsulosin Hcl 0.4 Mg Capsule) 0.4 mg PO DAILY [facility] Last Admin: 08/16/22 08:27 Dose: 0.4 mg Documented By: DIONISIO Labs 08/16/22 05:20 08/16/22 05:20 Labs: Laboratory Results - last 24 hr 08/15/22 08/16/22 08/16/22 07:06 05:20 05:20 MCV 86.2 MCH 27.9 MCHC 32.4 RDW 14.0 Plt Count 219 MPV 9.7 Absolute Nucleated RBC 0.000 Nucleated RBC % (auto) 0.0 Anion Gap 12 Estim Creat Clear Calc 37.2 Estimated GFR 46 Fasting Glucose 103 H Calcium 7.9 L Blood Type O Positive Antibody Screen NEGATIVE Crossmatch See Detail Assessment and Plan (1) Hematuria: Status: Acute Plan 77M PMH of HTN, Afib no longer on AC (was on xarelto in 2021), chronic systolic chf, presented to the hospital by family for reported speech problem and change in mental status. acute CVA unable to tolerate asa/ac due to hematuria continue statin AC when no longer contraindicated BECKY likely due to chronic urinary retention due to possible bladder mass, ollie-I stents placed, mcgrath inserted, creatinine improving continues to have hematuria - now on cbi monitor h and h acute Metabolic encephalopathy related to urine retention and hx of undiagnosed dementia and UTI reorientation ? 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 Quality Stroke Does the patient have a stroke diagnosis?: No VTE Prior VTE?: No VTE Risk Level:: Medical - moderate - high VTE Device Contraindication: Treatment Not Indicated VTE Drug Contraindication: N/A - Med Ordered
--- NOTE | 2022-08-16 10:17 | P.PNNP_ITS ---
Subjective Subjective Date of Service: 08/17/22 Interval history: hematuria Gradually clearing up. Creatinine is trending down. Physical Exam Vital Signs: Vital Signs: Last Vital Signs Temp 98.8 F 08/16/22 07:22 Pulse 61 08/16/22 07:22 Resp 20 08/16/22 07:22 BP 110/61 08/16/22 07:22 Pulse Ox 97 08/16/22 07:22 O2 Del Method Room Air 08/16/22 07:22 BMI result Body Mass Index 22.2 Const: Other: Constitutional : Awake, interactive, not in distress Neck : Normal inspection, Supple Cardiovascular : RRR, no JVP, no lower extremity edema Respiratory : good bilateral air entry, no crackles, wheezes or rhonchi Gastrointestinal: soft, lax, Normal bowel sounds, Non tender Skin : Warm, Dry Urology: Mcgrath in with hematuria, no clots noticed Neurological : Alert & oriented x2, No focal deficit , CN 2-12 within normal, sp eech is coherent but not back to baseline and still aphasic Objective Data Labs 08/16/22 05:20 08/16/22 05:20 Labs: Laboratory Results - last 24 hr 08/15/22 08/16/22 08/16/22 07:06 05:20 05:20 WBC 8.6 RBC 2.90 L Hgb 8.1 L Hct 25.0 L MCV 86.2 MCH 27.9 MCHC 32.4 RDW 14.0 Plt Count 219 MPV 9.7 Absolute Nucleated RBC 0.000 Nucleated RBC % (auto) 0.0 Sodium 142 Potassium 3.8 Chloride 111 H Carbon Dioxide 23 Anion Gap 12 BUN 35 H Creatinine 1.49 H Estim Creat Clear Calc 37.2 Estimated GFR 46 Fasting Glucose 103 H Calcium 7.9 L Blood Type O Positive Antibody Screen NEGATIVE Crossmatch See Detail Microbiology Microbiology Results: Microbiology 08/07/22 Unknown Urine clean catch - Urine hall top Urine Culture - Final Procedures Date of Service Date of Service: 08/17/22 Assessment & Plan Assessment and plan (1) Acute kidney injury: Status: Acute Assessment and Plan: 1. Non-Oliguuric BECKY: Obs uropathy with delayed recovery w mcgrath; Baseline serum creatinine is 0.8 Persistent hydro on repeat ultrasonogram 2. Hypokalemia. 3. Anemia Keep intake more than the output Serum creatinine is gradually trending down. No indication for dialysis. Urology follow-up for persistent hydro Continue to follow renal function (2) Hematuria: Status: Acute Time Spent With Patient Time: Total time managing care of this patient today ____ minutes. Progress Note: Quality Stroke Does the patient have a stroke diagnosis?: No
[2022-08-16] MEDS: Mirtazapine 15 MG TABLET PO (20:25)
[2022-08-16] MEDS: Atorvastatin Calcium 40 MG TABLET PO (20:25)
[2022-08-16] MEDS: carvediloL 12.5 MG TABLET PO (20:25)
[2022-08-17 04:00] VITALS: BP 100/50; PULSE 60; RESP 18; TEMP 37.2; O2SAT 98
[2022-08-17 06:46] LABS: Hematocrit 26.7 % (42.0-52.0); Hemoglobin 8.7 g/dl (14.0-18.0); Mean Corpuscular HGB Conc 32.6 g/dl (31.0-36.0); Mean Corpuscular Hemoglobin 28.3 pg (27.0-33.0); Mean Platelet Volume 9.7 fL (9.4-12.4); Platelet Count 239 X10*3/uL (160-400); Red Blood Count 3.07 X10*6/uL (4.60-5.80); Red Cell Distribution Width 14.1 % (11.0-16.0); White Blood Count 7.8 X10*3/uL (4.8-10.8)
[2022-08-17 07:11] VITALS: BP 117/64; PULSE 72; RESP 20; TEMP 36.8; O2SAT 99
[2022-08-17 07:28] LABS: Anion Gap 12 (12-20); Blood Urea Nitrogen 29 mg/dL (9-16); Calcium 8.2 mg/dL (8.4-10.2); Carbon Dioxide 26 mmol/L (22-29); Chloride 109 mmol/L (96-108); Creatinine Clr Calc Pharmacy 37.4; Estimated Glomerular Filt Rate 46; Glucose Fasting 97 mg/dL (60-99); Sodium 143 mmol/L (135-145)
[2022-08-17] MEDS: oxyBUTYnin chloride ER 5 MG TAB.ER.24 PO (08:52)
[2022-08-17] MEDS: Tamsulosin HCL 0.4 MG CAPSULE PO (08:52)
--- NOTE | 2022-08-17 08:53 | HO.PM.IMPN ---
Subjective Subjective Date of Service: 08/17/22 Interval History: f/u on hematuria, CBI clamped, urine clear, Cr trending down Gradually clearing up. Creatinine is trending down. Physical Exam Vital Signs: Vital Signs: Last Vital Signs Temp 98.2 F 08/17/22 07:11 Pulse 72 08/17/22 07:11 Resp 20 08/17/22 07:11 BP 117/64 08/17/22 07:11 Pulse Ox 99 08/17/22 07:11 O2 Del Method Room Air 08/17/22 07:11 BMI result Body Mass Index 22.2 Const: Other: General: AO X 3, no acute distress Resp: CTA bilateral CVS: S1,S2,RRR GI: +BS, NT, no distention Skin: No rash Neuro: motor grossly intact Psych: appropriate affect Objective Data Active Medications Acetaminophen (Acetaminophen 325 Mg Tablet) 650 mg PO Q6H PRN PRN Reason: Pain, Mild (Pain Scale 1-3) Last Admin: 08/14/22 20:41 Dose: 650 mg Documented By: LIZ Aspirin (Aspirin Enteric Coated 81 Mg Tablet.Dr) 81 mg PO DAILY [facility] Last Admin: 08/09/22 08:52 Dose: 81 mg Documented By: ANJALI Atorvastatin Calcium (Atorvastatin Calcium 40 Mg Tablet) 40 mg PO BEDTIME [facility] Last Admin: 08/16/22 20:25 Dose: 40 mg Documented By: JONATHAN Carvedilol (Carvedilol 12.5 Mg Tablet) 12.5 mg PO BID [facility]; Protocol Last Admin: 08/17/22 08:38 Dose: Not Given Documented By: DIONISIO Non-Admin Reason: HR in 30-40's this am Hydromorphone HCl (Hydromorphone Hcl 0.5 Mg/0.5 Ml Syringe) 0.25 mg IVPUSH Q5M PRN; Protocol PRN Reason: Pain, Severe (Pain Scale 7-10) Last Admin: 08/15/22 05:30 Dose: 0.25 mg Documented By: LIZ Mirtazapine (Mirtazapine 15 Mg Tablet) 15 mg PO BEDTIME [facility] Last Admin: 08/16/22 20:25 Dose: 15 mg Documented By: JONATHAN Ondansetron HCl (Ondansetron Hcl 4 Mg/2 Ml Vial) 4 mg IVPUSH Q8H PRN PRN Reason: Nausea and Vomiting Ondansetron HCl (Ondansetron Hcl 4 Mg/2 Ml Vial) 2 mg IVPUSH ONCE PRN PRN Reason: Nausea and Vomiting Oxybutynin Chloride (Oxybutynin Chloride Er 5 Mg Tab.Er.24) 5 mg PO DAILY [facility] Last Admin: 08/17/22 08:52 Dose: 5 mg Documented By: DIONISIO Sodium Chloride (0.9 % Sodium Chloride Flush 3 Ml Syringe) 3 ml IVFLUSH QSHIFT [facility] Last Admin: 08/17/22 01:31 Dose: Not Given Documented By: JONATHAN Non-Admin Reason: Previously Administered Tamsulosin HCl (Tamsulosin Hcl 0.4 Mg Capsule) 0.4 mg PO DAILY [facility] Last Admin: 08/17/22 08:52 Dose: 0.4 mg Documented By: DIONISIO Labs 08/17/22 06:26 08/17/22 06:26 Labs: Laboratory Results - last 24 hr 08/17/22 08/17/22 06:26 06:26 MCV 87.0 MCH 28.3 MCHC 32.6 RDW 14.1 Plt Count 239 MPV 9.7 Absolute Nucleated RBC 0.000 Nucleated RBC % (auto) 0.0 Anion Gap 12 Estim Creat Clear Calc 37.4 Estimated GFR 46 Fasting Glucose 97 Calcium 8.2 L Assessment and Plan (1) Hematuria: Status: Acute Plan 77M PMH of HTN, Afib no longer on AC (was on xarelto in 2021), chronic systolic chf, presented to the hospital by family for reported speech problem and change in mental status. acute CVA unable to tolerate asa/ac due to hematuria continue statin AC when no longer contraindicated BECKY likely due to chronic urinary retention due to possible bladder mass, ollie-I stents placed, mcgrath inserted, creatinine improving hematuria now resolved and will stop cbi monitor h and h acute Metabolic encephalopathy related to urine retention and hx of undiagnosed dementia and UTI reorientation--seems to be at baseline now ? 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 Quality Stroke Does the patient have a stroke diagnosis?: No VTE Prior VTE?: No VTE Risk Level:: Medical - moderate - high VTE Device Contraindication: Treatment Not Indicated VTE Drug Contraindication: N/A - Med Ordered
[2022-08-17] MEDS: 0.9 % Sodium Chloride Flush 3 ML SYRINGE IVFLUSH ×2 (08:54→20:08)
--- NOTE | 2022-08-17 09:32 | PM.PNNEP ---
Subjective Subjective Date of Service: 08/18/22 Interval history: f/u on hematuria, CBI clamped, urine clear, Gradually clearing up. Creatinine is trending down. Family at bedside Physical Exam Vital Signs: Vital Signs: Last Vital Signs Temp 98.2 F 08/17/22 07:11 Pulse 72 08/17/22 07:11 Resp 20 08/17/22 07:11 BP 117/64 08/17/22 07:11 Pulse Ox 99 08/17/22 07:11 O2 Del Method Room Air 08/17/22 07:11 BMI result Body Mass Index 22.2 Const: Other: Constitutional : Awake, interactive, not in distress Neck : Normal inspection, Supple Cardiovascular : RRR, no JVP, no lower extremity edema Respiratory : good bilateral air entry, no crackles, wheezes or rhonchi Gastrointestinal: soft, lax, Normal bowel sounds, Non tender Skin : Warm, Dry Urology: Mcgrath in with hematuria, no clots noticed Neurological : Alert & oriented x2, No focal deficit , CN 2-12 within normal, speech is coherent but not back to baseline and still aphasic Objective Data Labs 08/17/22 06:26 08/17/22 06:26 Labs: Laboratory Results - last 24 hr 08/17/22 08/17/22 06:26 06:26 WBC 7.8 RBC 3.07 L Hgb 8.7 L Hct 26.7 L MCV 87.0 MCH 28.3 MCHC 32.6 RDW 14.1 Plt Count 239 MPV 9.7 Absolute Nucleated RBC 0.000 Nucleated RBC % (auto) 0.0 Sodium 143 Potassium 4.0 Chloride 109 H Carbon Dioxide 26 Anion Gap 12 BUN 29 H Creatinine 1.48 H Estim Creat Clear Calc 37.4 Estimated GFR 46 Fasting Glucose 97 Calcium 8.2 L Microbiology Microbiology Results: Microbiology 08/07/22 Unknown Urine clean catch - Urine hall top Urine Culture - Final Procedures Date of Service Date of Service: 08/18/22 Assessment & Plan Assessment and plan (1) Acute kidney injury: Status: Acute Assessment and Plan: 1. Non-Oliguuric BECKY: Obs uropathy with delayed recovery w mcgrath; Baseline serum creatinine is 0.8 Persistent hydro on repeat ultrasonogram 2. Hypokalemia. 3. Anemia Keep intake more than the output Serum creatinine is gradually trending down. No indication for dialysis. Urology follow-up for persistent hydro Continue to follow renal function Discussed with family (2) Hematuria: Status: Acute Time Spent With Patient Time: Total time managing care of this patient today ____ minutes. Progress Note: Quality Stroke Does the patient have a stroke diagnosis?: No
--- NOTE | 2022-08-17 10:13 | MHC.CM.PN ---
Per ROUNDS discussion, may be stopping CBI today; Patient is not yet medically cleared for dc. PT is recommending home with services and CM will continue to follow.
[2022-08-17 11:19] VITALS: BP 138/80; PULSE 70; RESP 20; TEMP 36.5; O2SAT 100
[2022-08-17 15:27] VITALS: BP 118/61; PULSE 86; RESP 20; TEMP 37.1; O2SAT 95
--- NOTE | 2022-08-17 17:25 | PC.NURSE ---
Heart rate in 30-40's this am while patient sleeping am coreg held, Dr Jc notified. Continues on bladder irrigation slowed during shift with pale pink to clear urine plan to clamp this evening and monitor. MD at bedside in afternoon to update daughter. Will continue to monitor and report changes
--- NOTE | 2022-08-17 17:37 | MHC.SL.SOA ---
Referring Provider: Dr. Dobbs Reason for Referral: New onset Aphasia Date of Plan of Treatment:08/09/22 Onset of Symptoms/Illness:08/09/22 Date Treatment Started:08/09/22 Medical Diagnosis:UTI, Acute CVA Primary Speech Language Diagnosis:R47.01 Aphasia Subjective:Pt seen by bilingual GUTTER MOUTH CUTTER at bedside. Pt is resting with Daughter at bedside when GUTTER MOUTH CUTTER arrives. Pt perks up immediately, repositioning himself independently upon GUTTER MOUTH CUTTER greeting. Pt's daughter was content w/ worksheets provided by GUTTER MOUTH CUTTER on 08/16; reporting they had been practicing. Pt's daughter reports language is getting a little better. She also reports pt is having difficulty understanding directions; reporting it is better than yesterday but he is still confused. Objective: Pt presented w/ increased difficulty reading words in Grenadian versus Albanian. Pt required intermittent minimal support throughout speech tx. Pt matched 100% of words (Albanian to Albanian and Grenadian to Grenadian), Albanian words to pictures, and Grenadian descriptions to pictures. Pt provided additional aphasia/anomia worksheets in Grenadian and Albanian and informational handouts. Assessment:Pt will benefit from intensive Speech Therapy at this sub-acute level of care. If he is transitioning to VNA, recommend an agency that can provide Speech. Notes: Per CM note, d/c goal is home w/ VNA. Recommend continue speech therapy for moderate receptive-expressive aphasia. Seen by: Graduate/Clinical Fellow: No Supervisory Statement: f_Reg Query Last Value , MHC.AU.SIGNABEL Speech Language Pathologist: Brianna Lebron M.A., GUTTER MOUTH CUTTER
[2022-08-17 19:19] VITALS: BP 132/66; PULSE 72; RESP 20; TEMP 37.3; O2SAT 97
[2022-08-17] MEDS: Mirtazapine 15 MG TABLET PO (20:08)
[2022-08-17] MEDS: carvediloL 12.5 MG TABLET PO (20:08)
[2022-08-17] MEDS: Atorvastatin Calcium 40 MG TABLET PO (20:08)
[2022-08-17 23:52] VITALS: BP 119/60; PULSE 69; RESP 18; TEMP 36.8; O2SAT 98
[2022-08-18] VITALS (8 sets, daily range): BP systolic 106–133; BP diastolic 56–67; PULSE 63–78; RESP 18–20; TEMP 36.3–37; O2SAT 96–100
--- NOTE | 2022-08-18 06:19 | PC.NURSE ---
Pt A&O x3, expressive aphasia but able to make needs known. No s/sx pain or discomfort. No s/sx respiratory distress. [address] way m[address] cath in place from CBI. CBI clammped off. No s/sx clots. Cloudy pink urine in drainage bag. At approx 0550 pt noted to have 11 beat run of vtach. Lytes reviewed and relayed to cross coverage. STAT Lytes ordered and obtained. Results pending.
[2022-08-18 07:10] LABS: Anion Gap 11 (12-20); Blood Urea Nitrogen 30 mg/dL (9-16); Calcium 8.2 mg/dL (8.4-10.2); Carbon Dioxide 26 mmol/L (22-29); Chloride 109 mmol/L (96-108); Creatinine Clr Calc Pharmacy 40.7; Estimated Glomerular Filt Rate 51; Glucose Random 95 mg/dL (60-115); Magnesium 1.6 mg/dL (1.6-2.6); Potassium 3.7 mmol/L (3.3-5.1); Sodium 142 mmol/L (135-145)
[2022-08-18] MEDS: Tamsulosin HCL 0.4 MG CAPSULE PO (08:33)
[2022-08-18] MEDS: 0.9 % Sodium Chloride Flush 3 ML SYRINGE IVFLUSH ×3 (08:34→20:13)
[2022-08-18] MEDS: oxyBUTYnin chloride ER 5 MG TAB.ER.24 PO (08:34)
[2022-08-18] MEDS: carvediloL 12.5 MG TABLET PO ×2 (08:34→20:13)
--- NOTE | 2022-08-18 10:28 | MHC.CM.PN ---
Per ROUNDS discussion, Patient is not yet medically cleared for dc (CBI); PT is recommending home with services and CM will continue to follow.
--- NOTE | 2022-08-18 12:30 | P.PNIM_ITS ---
Subjective Subjective Date of Service: 08/18/22 Interval History: f/u on hematuria, CBI clamped, urine clearing up Cr trending down Gradually clearing up. Creatinine is trending down. Hb stable No other overnight events Review of Systems Review of Systems: Yes all other systems are reviewed and are negative Physical Exam Vital Signs: Vital Signs: Last Vital Signs Temp 97.5 F 08/18/22 11:30 Pulse 75 08/18/22 11:30 Resp 20 08/18/22 11:30 BP 108/56 L 08/18/22 11:30 Pulse Ox 99 08/18/22 11:30 O2 Del Method Room Air 08/18/22 11:30 BMI result Body Mass Index 22.2 Const: Other: Constitutional : Awake, interactive, not in distress Neck : Normal inspection, Supple Cardiovascular : RRR, no JVP, no lower extremity edema Respiratory : good bilateral air entry, no crackles, wheezes or rhonchi Gastrointestinal: soft, lax, Normal bowel sounds, Non tender Skin : Warm, Dry Urology: Mcgrath in with urine clearing up, no clots noticed Neurological : Alert & oriented x2, No focal deficit , CN 2-12 within normal, speech is coherent Objective Data Active Medications Acetaminophen (Acetaminophen 325 Mg Tablet) 650 mg PO Q6H PRN PRN Reason: Pain, Mild (Pain Scale 1-3) Last Admin: 08/14/22 20:41 Dose: 650 mg Documented By: LIZ Aspirin (Aspirin Enteric Coated 81 Mg Tablet.) 81 mg PO DAILY REPLACED BY [facility] Last Admin: 08/09/22 08:52 Dose: 81 mg Documented By: ANJALI Atorvastatin Calcium (Atorvastatin Calcium 40 Mg Tablet) 40 mg PO BEDTIME REPLACED BY [facility] Last Admin: 08/17/22 20:08 Dose: 40 mg Documented By: MALLIKA Carvedilol (Carvedilol 12.5 Mg Tablet) 12.5 mg PO BID REPLACED BY [facility]; Protocol Last Admin: 08/18/22 08:34 Dose: 12.5 mg Documented By: BRITTANI Hydromorphone HCl (Hydromorphone Hcl 0.5 Mg/0.5 Ml Syringe) 0.25 mg IVPUSH Q5M PRN; Protocol PRN Reason: Pain, Severe (Pain Scale 7-10) Last Admin: 08/15/22 05:30 Dose: 0.25 mg Documented By: LIZ Mirtazapine (Mirtazapine 15 Mg Tablet) 15 mg PO BEDTIME REPLACED BY [facility] Last Admin: 08/17/22 20:08 Dose: 15 mg Documented By: MALLIKA Ondansetron HCl (Ondansetron Hcl 4 Mg/2 Ml Vial) 4 mg IVPUSH Q8H PRN PRN Reason: Nausea and Vomiting Ondansetron HCl (Ondansetron Hcl 4 Mg/2 Ml Vial) 2 mg IVPUSH ONCE PRN PRN Reason: Nausea and Vomiting Oxybutynin Chloride (Oxybutynin Chloride Er 5 Mg Tab.Er.24) 5 mg PO DAILY REPLACED BY [facility] Last Admin: 08/18/22 08:34 Dose: 5 mg Documented By: BRITTANI Sodium Chloride (0.9 % Sodium Chloride Flush 3 Ml Syringe) 3 ml IVFLUSH QSHIFT REPLACED BY [facility] Last Admin: 08/18/22 08:34 Dose: 3 ml Documented By: BRITTANI Tamsulosin HCl (Tamsulosin Hcl 0.4 Mg Capsule) 0.4 mg PO DAILY REPLACED BY [facility] Last Admin: 08/18/22 08:33 Dose: 0.4 mg Documented By: BRITTANI Labs 08/17/22 06:26 08/18/22 06:21 Labs: Laboratory Results - last 24 hr 08/18/22 06:21 Anion Gap 11 L Estim Creat Clear Calc 40.7 Estimated GFR 51 Random Glucose 95 Calcium 8.2 L Magnesium 1.6 Assessment and Plan (1) Hematuria: Status: Acute (2) Acute kidney injury: Status: Acute (3) Hydroureteronephrosis: Status: Acute (4) Expressive aphasia: Status: Acute Plan 77M PMH of HTN, Afib no longer on AC (was on xarelto in 2021), chronic systolic chf, presented to the hospital by family for reported speech problem and change in mental status. acute CVA unable to tolerate asa/ac due to hematuria continue statin AC as outpatient per urology recommendations, pending outpatient follow up for biopsy BECKY likely due to chronic urinary retention due to possible bladder mass, ollie-I stents placed, mcgrath inserted, creatinine improving hematuria now resolving, CBI on hold Urology to follow today for further recommendations acute Metabolic encephalopathy related to urine retention and hx of undiagnosed dementia and UTI reorientation--seems to be at baseline now ? UTI completed 3 days abx, culture <10K acute on chronic Anemia mutlifactorial current acute blood loss anemia due to hematuria transfused 1 unit prb 08/15/22, hgb improved appropriately permanent Afib not on AC, he stopped xarelto on his own continue Carvedilol will restart AC when no longer contraindicated DVT PPx mechanical due to hematuria reason for continued hospitalization:hematuria , CBI, safe discharge plan Time Spent With Patient Time: Total time managing care of this patient today ____ minutes. Quality Stroke Does the patient have a stroke diagnosis?: No VTE Prior VTE?: No VTE Risk Level:: Medical - moderate - high VTE Device Contraindication: Treatment Not Indicated VTE Drug Contraindication: N/A - Med Ordered
--- NOTE | 2022-08-18 12:30 | PM.PNNEP ---
Subjective Subjective Date of Service: 08/18/22 Interval history: f/u on hematuria, CBI clamped, urine clear, Gradually clearing up. Creatinine is trending down. Physical Exam Vital Signs: Vital Signs: Last Vital Signs Temp 97.5 F 08/18/22 11:30 Pulse 75 08/18/22 11:30 Resp 20 08/18/22 11:30 BP 108/56 L 08/18/22 11:30 Pulse Ox 99 08/18/22 11:30 O2 Del Method Room Air 08/18/22 11:30 BMI result Body Mass Index 22.2 Const: Other: Constitutional : Awake, interactive, not in distress Neck : Normal inspection, Supple Cardiovascular : RRR, no JVP, no lower extremity edema Respiratory : good bilateral air entry, no crackles, wheezes or rhonchi Gastrointestinal: soft, lax, Normal bowel sounds, Non tender Skin : Warm, Dry Urology: Mcgrath in with hematuria, no clots noticed Neurological : Alert & oriented x2, No focal deficit , CN 2-12 within normal, speech is coherent but not back to baseline and still aphasic Objective Data Labs 08/17/22 06:26 08/18/22 06:21 Labs: Laboratory Results - last 24 hr 08/18/22 06:21 Sodium 142 Potassium 3.7 Chloride 109 H Carbon Dioxide 26 Anion Gap 11 L BUN 30 H Creatinine 1.36 Estim Creat Clear Calc 40.7 Estimated GFR 51 Random Glucose 95 Calcium 8.2 L Magnesium 1.6 Microbiology Microbiology Results: Microbiology 08/07/22 Unknown Urine clean catch - Urine hall top Urine Culture - Final Procedures Date of Service Date of Service: 08/18/22 Assessment & Plan Assessment and plan (1) Acute kidney injury: Status: Acute Assessment and Plan: 1. Non-Oliguuric BECKY: Obs uropathy with delayed recovery w mcgrath; Baseline serum creatinine is 0.8 Persistent hydro on repeat ultrasonogram 2. Hypokalemia. 3. Anemia Keep intake more than the output Serum creatinine is gradually trending down. No indication for dialysis. Urology follow-up for persistent hydro Continue to follow renal function We will arrange for outpatient follow-up. Thank you (2) Hematuria: Status: Acute Time Spent With Patient Time: Total time managing care of this patient today ____ minutes. Progress Note: Quality Stroke Does the patient have a stroke diagnosis?: No
--- NOTE | 2022-08-18 16:23 | PM.UROPN ---
Subjective Subjective Date of Service: 08/19/22 Interval history: FU hematuria, off CBI now, hydronephrosis, BECKY slowly has improved Physical Exam Vital Signs: Vital Signs: Last Vital Signs Temp 97.9 F 08/18/22 15:08 Pulse 63 08/18/22 15:08 Resp 18 08/18/22 15:08 BP 108/59 L 08/18/22 15:08 Pulse Ox 100 08/18/22 15:08 O2 Del Method Room Air 08/18/22 15:08 BMI result Body Mass Index 22.2 Const: General: no acute distress and well developed Orientation/consciousness: patient oriented x3 HEENT: Head: Yes normocephalic and Yes atraumatic Eyes: Conjunctivae: conjunctivae normal Neck: Neck: Yes normal visual inspection Chest: Chest palpation & inspection: normal inspection of the chest Resp: Effort & Inspection: normal respiratory effort GI: Inspection: Yes normal to inspection Palpation (GI): Soft to palpation : Other: mcgrath in place, CBI clamped. urine clear/tea colored no clots Penis: normal penis Scrotum: scrotum normal Neuro: General: patient oriented x3 Psych: Appearance: grossly normal Affect: normal affect Urology Results Labs 08/17/22 06:26 08/18/22 06:21 Labs: Laboratory Results - last 24 hr 08/18/22 06:21 Sodium 142 Potassium 3.7 Chloride 109 H Carbon Dioxide 26 Anion Gap 11 L BUN 30 H Creatinine 1.36 Estim Creat Clear Calc 40.7 Estimated GFR 51 Random Glucose 95 Calcium 8.2 L Magnesium 1.6 Progress Note: A&P Assessment and plan (1) Hematuria: Status: Acute (2) Acute kidney injury: Status: Acute Plan Active Hematuria. resolved with CBI Hold on anticoagulation for now DC with mcgrath FU with Dr. Rivera Time Spent With Patient Time: Total time managing care of this patient today ____ minutes. Progress Note: Quality Stroke Does the patient have a stroke diagnosis?: No
[2022-08-18] MEDS: Mirtazapine 15 MG TABLET PO (20:13)
[2022-08-18] MEDS: Atorvastatin Calcium 40 MG TABLET PO (20:13)
[2022-08-19 03:46] VITALS: BP 130/69; PULSE 73; RESP 18; TEMP 37.1; O2SAT 98
[2022-08-19 06:44] LABS: Hematocrit 24.8 % (42.0-52.0); Mean Corpuscular HGB Conc 32.3 g/dl (31.0-36.0); Mean Corpuscular Hemoglobin 28.3 pg (27.0-33.0); Mean Corpuscular Volume 87.6 fL (80.0-98.0); Mean Platelet Volume 9.9 fL (9.4-12.4); Platelet Count 265 X10*3/uL (160-400); Red Blood Count 2.83 X10*6/uL (4.60-5.80); Red Cell Distribution Width 14.4 % (11.0-16.0); White Blood Count 8.5 X10*3/uL (4.8-10.8)
[2022-08-19 07:37] VITALS: BP 122/65; PULSE 65; RESP 18; TEMP 36.6; O2SAT 99
[2022-08-19] MEDS: oxyBUTYnin chloride ER 5 MG TAB.ER.24 PO (07:54)
[2022-08-19] MEDS: carvediloL 12.5 MG TABLET PO (07:54)
[2022-08-19] MEDS: Tamsulosin HCL 0.4 MG CAPSULE PO (07:54)
[2022-08-19] MEDS: 0.9 % Sodium Chloride Flush 3 ML SYRINGE IVFLUSH (07:55)
[2022-08-19] MEDS: polyethylene glycoL 3350 17 GM POWD.PACK PO (10:48)
--- NOTE | 2022-08-19 11:33 | PM.DS ---
DS: Providers Provider Date of Service: 08/19/22 Date of admission: 08/07/22 15:33 Primary care physician: [facility] Consults: 08/07/22 15:34 Consult to Nephrology Routine Consulting Provider: Refugio Bacon Reason for consultation: Elevated Cr, BECKY vs CKD, establishment of care Consult to Neurology Routine Consulting Provider: [facility] Reason for consultation: Reported facial drop and aphasia 08/07/22 18:56 Consult to Urology Routine Consulting Provider: [facility] Reason for consultation: Hematuria, urinary retention, right hydronephrosis. Has provider been notified: No 08/13/22 09:36 Consult to Urology Routine Consulting Provider: Wisam Nuñez Reason for consultation: follow up, persistentn right hydro, hematuria DS: Diagnosis Discharge Diagnosis (1) Hematuria: Status: Acute (2) Acute kidney injury: Status: Acute (3) Mild aphasia: Status: Acute (4) Hydroureteronephrosis: Status: Acute (5) Expressive aphasia: Status: Acute (6) Stroke: Status: Acute DS: Summary Hospital Course Hospital Course: Admission note HPI A 77 years old male with PMH of HTN, Afib not on AC unclear why who presents to the hospital by family for reported speech problem and change in mental status. The son reports that he see his dad once a week but the patient was at skilled nursing visiting his other brother in along with his other brother. He drove there and there was no complaints or concerns. Starting yesterday morning his brother reports that his face looked different and he was finding difficulties finding words and felt little confused. The patient denies any of these symptoms and thinks he is at baseline. denies fever, chills, headache, double vision, focal weakness or numbness. In ED a CT, CTA were done showing. Bladder scan showed urine retention. Kidney function test showed elevated Cr, normal baseline 3 years ago Admitted for further eval. Hospital course The patient was admitted for evidence of acute CVA with expressive aphasia and encephalopathy. Confirmed by MRI as CT\CTA did not show any specific acute findings. unable to tolerate asa/ac due to hematuria and recommended not to use it by Urology until bladder scan is done again and biopsies are taken as outpatient. Started on Atorvastatin with good tolerence. Seen by speech therapy team who will continue to follow as outpatient. tolerated regular diet. Please review images below. Noted to have Acute kidney injury at time of presentation likely due to chronic urinary retention due to possible bladder mass. seen by urologist who did stent placement in ureter, 3-way mcgrath inserted for hematuria as creatinine improved with resolution of the obstruction. He was followed by nephrology team. Cr improved to baseline. Hematuria resolved and CBI was discontinued. Urology recommended to hold on ASA and anticoagulation meanwhile. to be discharged on the 3-way catheter with plug on the irrigation port with a plan to follow with dr Rivera as outpatient. will repeat blood test and follow with dr Bacon from nephrology. Please review images below. Developed acute on chronic Anemia from acute blood loss anemia due to hematuria. transfused 1 unit prb 08/15/22, hgb improved appropriately. He has permanent Afib. not on AC, he stopped xarelto on his own. rate controlled on BB. needs to restart AC when no longer contraindicated Discharge plan: Atorvastatin 80 mg daily start Tamsulosin as prescribed repeat blood tests next week To follow with dr Rivera in office in 2 weeks Continue with therapy at home Time Spent with Patient Time attestation: Total time managing care of this patient today ____ minutes. Discharge coordination time: Greater than 30 minutes Quality: Safe Use of Opioids Does Pt have an Active Cancer Diagnosis on the Problem List?: No Quality: Stroke Does the patient have a stroke diagnosis?: No Physical Exam Vital Signs: Vital Signs: Last Vital Signs Temp 97.8 F 08/19/22 07:37 Pulse 65 08/19/22 07:37 Resp 18 08/19/22 07:37 BP 122/65 08/19/22 07:37 Pulse Ox 99 08/19/22 07:37 O2 Del Method Room Air 08/19/22 07:37 BMI result Body Mass Index 22.2 Const: Other: Constitutional : Awake, interactive, not in distress Neck : Normal inspection, Supple Cardiovascular : RRR, no JVP, no lower extremity edema Respiratory : good bilateral air entry, no crackles, wheezes or rhonchi Gastrointestinal: soft, lax, Normal bowel sounds, Non tender Skin : Warm, Dry Urology: Mcgrath in with urine clearing up, no clots noticed Neurological : Alert & oriented x2, No focal deficit , CN 2-12 within normal, speech is coherent DS: Data Data Completed and Pending Labs on day of discharge: Laboratory Results - last 24 hr 08/19/22 06:10 WBC 8.5 RBC 2.83 L Hgb 8.0 L Hct 24.8 L MCV 87.6 MCH 28.3 MCHC 32.3 RDW 14.4 Plt Count 265 MPV 9.9 Absolute Nucleated RBC 0.000 Nucleated RBC % (auto) 0.0 Imaging MRI - head: Radiologist's impression: ITS Impressions Head CT 08/07/22 13:51 IMPRESSION: Findings of old ischemic changes as described above with no definite new loss of hall-white matter interface or mass effect. Renal Ultrasound 08/07/22 16:00 IMPRESSION: 1. Moderate to severe right-sided hydronephrosis. 2. There is a 5.6 cm mass posterior to the urinary bladder, which is not well evaluated on this examination. The prostate gland is not confidentially identified as a separate structure in this examination, and the mass could represent an enlarged prostate. Recommend further evaluation with a CT abdomen/pelvis. Abdomen/Pelvis CT 08/08/22 09:11 IMPRESSION: Severe bilateral hydronephrosis and ureteral dilatation down to the bladder. 4 mm stone in the lower pole of the right kidney. 2 right-sided bladder stones versus right UVJ stone measuring 4 and 5 mm. No left ureteral stone. Diffuse bladder wall thickening and stranding of the perivesicular fat. Infectious, inflammatory and neoplastic bladder process should be considered. Enlarged prostate gland protrudes into the base of the bladder. Diverticulosis. Fleischner guidelines were followed. Guidance Fluoroscopy 08/08/22 17:40 IMPRESSION: Fluoroscopy for urologic procedure. Brain MRI 08/09/22 15:53 IMPRESSION: Two small acute infarcts in the inferior left occipital lobe. Cystic encephalomalacia in the left occipital lobe with peripheral hemosiderin staining and gliosis. Scattered chronic lacunar infarcts in the deep hall matter structures and external capsules. Moderate chronic white matter microangiopathy. Renal Ultrasound 08/11/22 13:19 IMPRESSION: Persistent moderate right hydronephrosis minimally improved from previous exams. Stent seen in the right renal collecting system. Severe left hydronephrosis unchanged. Abdomen/Pelvis CT 08/14/22 10:17 IMPRESSION: New right internal ureteral stent in satisfactory position. Interval decrease in right hydronephrosis and ureteral dilatation. 4 mm right lower pole renal stone. Stable moderate left hydronephrosis and ureteral dilatation down to the bladder. Mcgrath catheter in the bladder. Diffuse bladder wall thickening and stranding of the perivesicular fat. Enlarged prostate gland that protrudes into the base of the bladder. New 3 mm calcification in the left lower lateral bladder probably representing a stone as opposed to bladder wall calcification. Constipation and diverticulosis. Fleischner guidelines were followed. Discharge Plan Discharge Anticipated Discharge Date/Time: 08/19/22 11:17 Patient Disposition: Home Health Service Discharge Diagnosis: Acute stroke bloody urine speaking problem Referrals: [facility] [Outside] - 3-5 Days Center,[facility] [Primary Care Provider] - 1 Week Discharge Medications: New atorvastatin 40 mg Tablet 40 mg PO BEDTIME Qty: 90 0RF tamsulosin 0.4 mg Capsule 0.4 mg PO DAILY Qty: 90 0RF Continued mirtazapine 15 mg tablet 15 mg PO BEDTIME 30 Days Qty: 30 2RF (DME) blood pressure test kit-medium Kit See Rx Instructions .Route Qty: 1 0RF Rx Instructions: As directed carvedilol 25 mg tablet 25 mg PO BID Qty: 180 2RF Discontinued lisinopril-hydrochlorothiazide 20-12.5 mg tablet 1 tab PO DAILY Qty: 90 1RF Discharge Orders: Discharge Order (Routine); Ordered 08/19/22 Ordered By: Syeda Dobbs Diet: Advance to usual diet Activity on Discharge: As tolerated Stand Alone Forms: Patient Portal Discharge page Other Ambulatory Orders: Basic Metabolic Panel (Routine) Timeframe: 5 Days Facility: [facility] - Location: Laboratory Ordered By: Syeda Dobbs Complete Blood Count no Diff (Routine) Timeframe: 5 Days Facility: [facility] - Location: Laboratory Ordered By: Syeda Dobbs Care Plan Goals: Read below Health Concerns: Read below Plan of Treatment: Read below Assessment: You were admitted to the hospital for evaluation of difficulties speaking. MRI showed evidence of stroke. seen by neurologist who recommended blood thinners and aspirin which we could not start as you developed bloody urine requiring 1 unit of blood transfusion. Urologist Dr Rivera evaluated you for obstruction in ureter with elevated kidney function and did a scope study with placement of a stent to relieve the obstruction with a plan to follow as outpatient for bladder wall biopsy. He recommended to hold on any Aspirin or blood thinners until then. Atorvastatin 80 mg daily start Tamsulosin as prescribed repeat blood tests next week To follow with dr Rivera in office in 2 weeks Continue with therapy at home Discharge Date/Time: 08/19/22 14:30
--- NOTE | 2022-08-19 11:38 | MHC.CM.PN ---
Addendum entered by Louise Gallardo 08/19/22 14:39: CM MET WITH PTS DAUGHTER, TIMMY, AT BEDSIDE SHE IS AWARE SERVICES HAVE BEEN SET UP WITH [facility] TIMMY IS ALSO AWARE PT REPORTED DIFFICULTY WITH MEDICATION COSTS UPON ADMISSION SHE WAS ALSO INFORMED PT WOULD BE ABLE TO GO TO [facility] AND GET HIS MEDS AT A REDUCED RATE SINCE HE HAS HSN. CM CALLED [facility] AND CONFIRMED THEY HAVE PTS INSURANCE INFORMATION TIMMY REPORTS SHE IS TRYING TO GET THE PT TO RETURN TO [place] WITH HER TEMPORARILY, BUT CURRENTLY HE IS REFUSING SHE DID ASK ABOUT [employer] [facility], CM INFORMED HER A REFERRAL WAS SENT TO [facility], AND IF PT DOES QUALIFY FOR [facility], A REFERRAL FOR [facility] [employer] [facility] SERVICES COULD BE SENT BY PTS PCP TIMMY WILL PROVIDE TRANSPORTATION Original Note: PT TO DC HOME TODAY WITH [facility] FAMILY TO TRANSPORT
--- NOTE | 2022-08-19 12:18 | MHC.SL.SOA ---
Referring Provider: Dr. Dobbs Reason for Referral: New onset Aphasia Date of Plan of Treatment:08/09/22 Onset of Symptoms/Illness:08/09/22 Date Treatment Started:08/09/22 Medical Diagnosis:UTI, Acute CVA Primary Speech Language Diagnosis:R47.01 Aphasia Reason for Visit:79841 Individual Treatment Subjective:Pt seen by bilingual FLOOR SURFACER at bedside. Pt is accompanied by a friend and actively engaging in a conversation with him. Per chart review, pt is to be discharged from the hospital today home w/ VNA services. FLOOR SURFACER discussed w/ attending MD, endorsed recommendation for continuation of speech therapy for receptive-expressive aphasia. Objective: Pt correctly named 11/15 line images in Citizen [place] and German. Pt continues w/ paraphasias. For example, he named [place] as squirrel and rat (semantic paraphasias). He was able to select the correct name from a choice of 4 written words. Pt continues having difficulty repeating words and phrases, but is able to do so after some approximations and repeated attempts. Pt was provided with a packet of worksheets in German and Citizen Of [place]. Pt pointed to the worksheets he already had at bedside, and stated that he has been practicing everyday with different family members. Pt stated that his speech has been getting better day to day. Assessment:Pt will benefit from intensive Speech Therapy at this sub-acute level of care. If he is transitioning to VNA, recommend an agency that can provide Speech. Notes: Per CM note, d/c goal is home w/ VNA. Recommend continue speech therapy for moderate receptive-expressive aphasia. Seen by: Graduate/Clinical Fellow: No Supervisory Statement: f_Reg Query Last Value , MHC.AU.SIGNAT Speech Language Pathologist: Ewelina Lees M.A., CCC-FLOOR SURFACER
--- NOTE | 2022-08-19 12:35 | W.MHC.F2F ---
Service Date Service Date: 08/19/22 Encounter Date of encounter: 08/19/22 Reasons for Services Signs and symptoms assessed: Acute stroke Speech problem Reason for penitentiary: medication treatment and teach disease management Reason for physical therapy: home safety and mobility and therapeutic exercises Reason for speech therapy: speech impairment Homebound: Leaving the home is medically contraindicated at this time without the asist of a device and/or another person due th the listed conditions above and below. Reason homebound: unsteady gait / fall risk Certification: Based on the above findings, I certify that this patient is confined to the home and needs intermittent penitentiary care, physical therapy and/or speech therapy, or continues to need occupational therapy. The patient is under my care, and I have initiated the establishment of the plan of care. The patient will be followed by a physician who will periodically review the plan of care. Time Spent With Patient Time: Total time managing care of this patient today ____ minutes.
== END 2022-08-19 14:30 | disposition home health service (06) | DRG 987 ==
LOC: HO.ED 12:23 → HO.EDOVER 15:50 → HO.IMC 15:57
PROVIDERS: Internal Medicine; Urology; Admitting Provider Student in an Organized Health Care Education/Training Program; Emergency Provider Internal Medicine; Visit Provider Student in an Organized Health Care Education/Training Program
PROC: 0T768DZ Dilation of Right Ureter with Intraluminal Device, Via Natural or Artificial Opening Endoscopic (ICD-10-PCS; principal; 2022-08-08 15:40)
DX: I63.89 Other cerebral infarction (principal); G93.41 Metabolic encephalopathy; I13.0 Hypertensive heart and chronic kidney disease with heart failure and stage 1 through stage 4 chronic kidney disease, or unspecified chronic kidney disease; I48.21 Permanent atrial fibrillation; N13.6 Pyonephrosis; N17.9 Acute kidney failure, unspecified; D62 Acute posthemorrhagic anemia; I50.22 Chronic systolic (congestive) heart failure; R47.01 Aphasia; N32.9 Bladder disorder, unspecified; E87.6 Hypokalemia; F03.90 Unspecified dementia, unspecified severity, without behavioral disturbance, psychotic disturbance, mood disturbance, and anxiety; D63.1 Anemia in chronic kidney disease; R33.9 Retention of urine, unspecified; R31.9 Hematuria, unspecified; N18.1 Chronic kidney disease, stage 1; R29.701 NIHSS score 1; Z91.148 Patient's other noncompliance with medication regimen for other reason; Z79.899 Other long term (current) drug therapy
CPT/HCPCS: 36415; 70450; 70551; 74176; 76775; 80048; 80053; 80061; 81001; 81003; 83735; 84153; 84300; 85014; 85018; 85025; 85027; 85610; 85730; 86850; 86900; 86901; 86923; 87086; 92507; 92610; 93005; 93306; 97116; 97161; 97530; 99222; 99285; C1758; C1769; C2617; J0131; J0696; J1170; J1650; J1956; J3010; P9016; Q9967

== ENCOUNTER 2022-08-25 13:03 | Outpatient (REF) | payer MEDICARE, SELFPAY ==
[2022-08-25 13:12] LABS: MANUAL DIFF FLAG NO
[2022-08-25 13:22] LABS: Basophils Percent Auto 0.3 % (0-2); Eosinophils Absolute Auto 0.3 X10*3/uL (0.0-0.4); Eosinophils Percent Auto 3.3 % (0-4); Hematocrit 25.1 % (42.0-52.0); Hemoglobin 8.3 g/dl (14.0-18.0); Imm Gran Abs Auto 0.04 X10*3/uL (0.00-0.03); Imm Gran Pct Auto 0.5 % (0.0-0.4); Lymphocytes Percent Auto 11.4 % (20-40); Mean Corpuscular HGB Conc 33.1 g/dl (31.0-36.0); Mean Corpuscular Hemoglobin 28.3 pg (27.0-33.0); Mean Corpuscular Volume 85.7 fL (80.0-98.0); Mean Platelet Volume 9.8 fL (9.4-12.4); Monocytes Absolute Auto 0.7 X10*3/uL (0.1-1.2); Monocytes Percent Auto 8.1 % (2-11); Neutrophils Absolute Auto 6.6 x10*3/uL (2.0-8.3); Neutrophils Percent Auto 76.4 % (45-73); Platelet Count 280 X10*3/uL (160-400); Red Blood Count 2.93 X10*6/uL (4.60-5.80); Red Cell Distribution Width 13.9 % (11.0-16.0); White Blood Count 8.7 X10*3/uL (4.8-10.8)
[2022-08-25 14:56] LABS: Anion Gap 9 (12-20); Blood Urea Nitrogen 24 mg/dL (9-16); Calcium 7.8 mg/dL (8.4-10.2); Carbon Dioxide 27 mmol/L (22-29); Chloride 109 mmol/L (96-108); Estimated Glomerular Filt Rate 41; Glucose Random 98 mg/dL (60-115); Potassium 3.7 mmol/L (3.3-5.1); Sodium 141 mmol/L (135-145)
== END 2022-08-25 13:04 | disposition home or self-care (01) ==
LOC: HO.HVNA 13:03
PROVIDERS: Visit Provider Physician Assistant
DX: N13.30 Unspecified hydronephrosis (principal)
CPT/HCPCS: 36415; 80048; 85025

== ENCOUNTER → 2022-08-30 10:52 | Outpatient (BNVA) | payer MEDICARE, OTHER, SELFPAY | PROVIDERS: PCP Physician Assistant; Visit Provider Urology | DX: N47.2 Paraphimosis (principal); N13.30 Unspecified hydronephrosis; N40.1 Benign prostatic hyperplasia with lower urinary tract symptoms; R33.8 Other retention of urine; N32.0 Bladder-neck obstruction | CPT/HCPCS: 52000; 52310; 54450; 99212 ==

== ENCOUNTER 2022-08-31 16:13 | Outpatient (REF) | payer MEDICARE, OTHER, SELFPAY ==
[2022-08-31 16:24] LABS: MANUAL DIFF FLAG NO
[2022-08-31 16:32] LABS: Basophils Percent Auto 0.4 % (0-2); Eosinophils Absolute Auto 0.3 X10*3/uL (0.0-0.4); Eosinophils Percent Auto 6.2 % (0-4); Hematocrit 28.7 % (42.0-52.0); Hemoglobin 9.3 g/dl (14.0-18.0); Imm Gran Abs Auto 0.01 X10*3/uL (0.00-0.03); Imm Gran Pct Auto 0.2 % (0.0-0.4); Lymphocytes Percent Auto 17.8 % (20-40); Mean Corpuscular HGB Conc 32.4 g/dl (31.0-36.0); Mean Corpuscular Hemoglobin 27.8 pg (27.0-33.0); Mean Corpuscular Volume 85.7 fL (80.0-98.0); Mean Platelet Volume 9.5 fL (9.4-12.4); Monocytes Absolute Auto 0.6 X10*3/uL (0.1-1.2); Monocytes Percent Auto 10.7 % (2-11); Neutrophils Absolute Auto 3.6 x10*3/uL (2.0-8.3); Neutrophils Percent Auto 64.7 % (45-73); Platelet Count 270 X10*3/uL (160-400); Red Blood Count 3.35 X10*6/uL (4.60-5.80); White Blood Count 5.5 X10*3/uL (4.8-10.8)
[2022-08-31 16:44] LABS: Anion Gap 13 (12-20); Blood Urea Nitrogen 27 mg/dL (9-16); Calcium 8.7 mg/dL (8.4-10.2); Carbon Dioxide 25 mmol/L (22-29); Chloride 109 mmol/L (96-108); Estimated Glomerular Filt Rate 37; Glucose Random 99 mg/dL (60-115); Potassium 3.6 mmol/L (3.3-5.1); Sodium 143 mmol/L (135-145)
== END 2022-08-31 16:14 | disposition home or self-care (01) ==
LOC: HO.LAB 16:13
PROVIDERS: PCP Physician Assistant; Visit Provider Physician Assistant
DX: N17.9 Acute kidney failure, unspecified (principal); R31.9 Hematuria, unspecified; D64.9 Anemia, unspecified
CPT/HCPCS: 36415; 80048; 85025

== ENCOUNTER 2022-09-14 09:30 | Outpatient (REF) | payer MEDICARE, OTHER, SELFPAY ==
[2022-09-14 12:15] LABS: Hematocrit 27.5 % (42.0-52.0); Hemoglobin 8.8 g/dl (14.0-18.0); Mean Corpuscular Hemoglobin 27.2 pg (27.0-33.0); Mean Corpuscular Volume 84.9 fL (80.0-98.0); Mean Platelet Volume 9.9 fL (9.4-12.4); Platelet Count 247 X10*3/uL (160-400); Red Blood Count 3.24 X10*6/uL (4.60-5.80); Red Cell Distribution Width 14.2 % (11.0-16.0); White Blood Count 8.8 X10*3/uL (4.8-10.8)
[2022-09-14 12:59] LABS: Anion Gap 14 (12-20); Blood Urea Nitrogen 27 mg/dL (9-16); Calcium 8.7 mg/dL (8.4-10.2); Carbon Dioxide 25 mmol/L (22-29); Chloride 106 mmol/L (96-108); Estimated Glomerular Filt Rate 40; Glucose Random 94 mg/dL (60-115); Iron 37 mcg/dL (45-160); Percent Iron Saturation 20 % (15-50); Potassium 4.3 mmol/L (3.3-5.1); Sodium 141 mmol/L (135-145); Total Iron Binding Capacity 182 mcg/dL (228-428); Unsaturated Iron Binding 145 ug/dL
== END 2022-09-14 09:31 | disposition home or self-care (01) ==
LOC: HO.LAB 09:30
PROVIDERS: Absent Provider Physician Assistant; PCP Physician Assistant; Visit Provider Urology
DX: D50.0 Iron deficiency anemia secondary to blood loss (chronic) (principal)
CPT/HCPCS: 36415; 51798; 80048; 83540; 85027

== ENCOUNTER 2022-09-14 10:01 | Outpatient (AMB) | payer MEDICARE, SELFPAY ==
[2022-09-14 10:03] VITALS: BP 138/80; PULSE 76; O2SAT 99; BMI 21.6
--- NOTE | 2022-09-14 10:03 | A.OFFPC_ITS ---
Vital Signs 09/14/22 10:03 Height 5 ft 6 in Weight 134 lb 2 oz BMI 21.6 BP 138/80 Blood Pressure Location Lt brachial Position Sitting Pulse 76 Pulse Source Pulse Oximeter Pulse Oximetry (%) 99 Oxygen Delivery Method Room Air Intake Visit Reasons: dizzy spells Behavioral Technician Required: Yes Behavioral Technician Language: Bermudian Accompanied by: Other Relationship Allergies No Known Allergies Allergy (Verified 09/14/22 10:11) Medication List - Last Reconciled 09/14/22 by Edin Francis PA-C atorvastatin 40 mg PO BEDTIME blood pressure test kit-medium As directed carvedilol 25 mg PO BID finasteride 5 mg PO DAILY 90 days mirtazapine 15 mg PO BEDTIME 30 days nicotine (polacrilex) (Nicorette) 2 mg buccal Q2-4H PRN tamsulosin 0.4 mg PO DAILY Tobacco use date assessed: 05/12/22 HPI dizzy spells HPI Details Patient is a 77-year-old male here today for follow-up visit. Today he represents with his daughter whom gives most of history. Patient has a past medical history significant for AFib, CVA, hypertension, tobacco dependency. Recently admitted to [facility] for acute CVA with expressive aphasia. MRI brain showing occipital infarcts. Patient was restarted on anticoagulation though had complication of hematuria due to bladder outlet obstruction. Patient did sustain significant anemia requiring blood transfusion. CVA: Was found to have an acute stroke in his occipital region, has expressive aphasia and some memory deficit. Will try to set him up with Neurology for further evaluation. Has home visiting nurses and speech language pathologist coming to home. Will continue to manage with risk reduction modalities thus advised to quit smoking, control blood pressure and AFib. Current still holding anticoagulation due to contraindications with anemia and hematuria.. Bladder outlet - Followed by Urologist and most recent bladder scan showing urinary retention, patient refusing to place Stein. Has 2 week follow-up appointment to again evaluate. Continues on tamsulosin at this time. 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 Mother Cancer Sister Cancer Other Mental health disorder Social History Household Members: None Housing: Apartment Do you presently have visiting nurse or other home services: No Alcohol intake: unknown Patient Tobacco Use Status: Former Tobacco user Cigarettes Per Day: 4 e-Cigarette/Vaping Use: Never Used service: No Current occupational status: unemployed Cognitive needs: No Hearing needs: No Vision needs: No Questionnaire PHQ-9 Over the last 2 weeks, how often have you been bothered by any of the following problems? 1. Little interest or pleasure in doing things: not at all 2. Feeling down, depressed, or hopeless: not at all 3. Trouble falling or staying asleep, or sleeping too much: not at all 4. Feeling tired or having little energy: not at all 5. Poor appetite or overeating: not at all 7. Trouble concentrating on things, such as reading the newspaper or watching television: not at all 8. Moving or speaking so slowly that other people could have noticed. Or the opposite - being so fidgety or restless that you have been moving around a lot more than usual: not at all Source: Developed by Drs. Tuan Estrella, Cassy Vu, Bartolo Manzo and colleagues, with an educational anabel from [employer]. Thrive Questionnaire Date Thrive assessed: 05/12/22 What is your living situation today?: I have a steady place to live Within the past 12 months, did the food you bought not last and you didn't have the money to get more?: Never true Within the past 12 months, did you worry whether your food would run out before you got money to buy more?: Never true Do you have trouble paying for medicines?: No Do you have trouble getting transportation to medical appointments?: No Do you have trouble paying your heating and electricity bill?: No Do you have trouble taking care of your child, family member or friend?: No Do you have trouble with day-to-day activities such as bathing, preparing meals, shopping, managing finances, etc.?: No Are you currently unemployed and looking for a job?: No Are you interested in more education?: No CHELA-7 AMB Questionnaire CHELA-7 Date CHELA - 7 assessed: 05/12/22 Source: Developed by Drs. Tuan Estrella, Cassy Vu, Bartolo Manzo and colleagues, with an educational anabel from [employer]. Review of Systems Const Denies headache(s) Eyes Denies loss of vision ENT Denies vertigo, Denies dizziness, Denies headache(s) and Denies sore throat Card Denies chest pain, Denies leg edema and Denies lightheadedness Resp Denies cough, Denies hemoptysis and Denies wheezing GI Denies abdominal pain, Denies melena, Denies constipation, Denies diarrhea and Denies vomiting Denies dysuria, Denies urinary frequency and Denies urinary urgency Musc Denies arthralgias, Denies joint swelling, Denies numbness and Denies tingling Neuro Reports Abnormal speech present, Denies behavioral changes, Denies vertigo, Denies dizziness, Denies headache(s), Denies loss of vision, Denies memory loss, Denies numbness and Denies tingling Psych Denies anxiety, Denies behavioral changes, Denies depression, Denies memory loss and Denies panic attacks Garfield/Lymph Denies easy bleeding and Denies easy bruising Aller/Immun Denies wheezing Physical exam (Primary Care) Vital Signs: Last Vital Signs Pulse 76 09/14/22 10:03 BP 138/80 09/14/22 10:03 Pulse Ox 99 09/14/22 10:03 Oxygen Delivery Method Room Air 09/14/22 10:03 BMI result Body Mass Index 21.6 Tobacco/Smoking Status: Tobacco use Status Tobacco use date assessed 05/12/22 09/14/22 10:11 Patient Tobacco Use Status Former Tobacco user 09/14/22 10:11 e-Cigarette/Vaping Use Never Used 09/14/22 10:11 Thrive Assessment: Date of Thrive Assessment Date Thrive assessed 05/12/22 09/14/22 10:11 Const General: healthy appearing, no acute distress, alert and awake Nutritional Appearance: well nourished Orientation/consciousness: oriented to person, oriented to place and oriented to time HENMT Ears: TM's normal bilaterally General nose exam: Normal nasal mucous membranes and turbinates present Eyes Conjunctivae: conjunctivae normal Sclerae: sclerae normal Pupils: Equal, round and reactive pupils present Neck Neck: Yes no lymphadenopathy and Yes no JVD Thyroid: Thyroid normal Carotids: no bruits Resp Effort & Inspection: normal respiratory effort and not tachypneic Auscultation: no crackles, no rales, no rhonchi and no wheezes Cardio Rate: regular rate Rhythm: regular rhythm Heart sounds: no murmurs and normal S1 and S2 GI Palpation (GI): Soft to palpation, nontender, no hepatomegaly and no splenomegaly Auscultation: normal bowel sounds Skin General skin exam: no rashes or lesions noted and dry skin Neuro Other: EXPRESSIVE APHASIA NOTED- REPEATING WORDS General: oriented to person, oriented to place and oriented to time Cranial nerves: Yes Equal, round and reactive pupils present Speech: Abnormal speech present Gait exam (Neuro): Normal gait present Motor exam (neuro): no tremor noted Extrem Right upper extremity: full ROM Left upper extremity: full ROM Right lower extremity: full ROM; no edema Left lower extremity: full ROM; no edema Psych Mental Status: mental status grossly normal Speech and movement: Normal speech and movement present Affect: normal affect Attitude: cooperative Thought process: Normal thought process present Assessment and Plan Assessment & Plan (1) Anemia: Code(s): D64.9 - Anemia, unspecified Qualifiers: Anemia type: iron deficiency Iron deficiency anemia type: chronic blood loss Qualified Code(s): D50.0 - Iron deficiency anemia secondary to blood loss (chronic) Plan: Has upcoming appointment with Hematology, has had significant anemia requiring blood transfusion. Hemoglobin has trending up since hospitalization, review recheck. Will start iron supplementation. Likely cause of anemia urological etiology in the setting of anticoagulation use? (2) Smoker: Code(s): F17.200 - Nicotine dependence, unspecified, uncomplicated Plan: Strongly advised to quit smoking and patient expresses understanding. Family reports he does still sneak cigarettes at times. (3) Afib: Code(s): I48.91 - Unspecified atrial fibrillation Qualifiers: Atrial fibrillation type: persistent (not longstanding) Qualified Code(s): I48.19 - Other persistent atrial fibrillation Plan: Continues on rate control with carvedilol. Anticoagulation currently contraindicated due to hematuria/ anemia. 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 Continues with expressive aphasia and memory loss. Will refer to Neurology for further management evaluation. Will continue her risk reduction (5) Aphasia as late effect of stroke: Code(s): I69.320 - Aphasia following cerebral infarction Plan: Continues with expressive aphasia memory issue. Recently had CVA and will establish him with a neurologist for further evaluation and treatment. (6) Dermatitis: Code(s): L30.9 - Dermatitis, unspecified (7) Bladder outlet obstruction: Code(s): N32.0 - Bladder-neck obstruction Plan: Continues to follow Urology, stent has been placed, continues to urinary retention. Refusing Stein catheterization. Has another 2 week follow-up appointment for bladder scan. Orders: Orders Basic Metabolic Panel Today D50.0 - Iron deficiency anemia secondary to blood loss (chronic) IRON PROFILE Today D50.0 - Iron deficiency anemia secondary to blood loss (chronic), D50.9 - Iron deficiency anemia, unspecified Complete Blood Count no Diff Today D50.0 - Iron deficiency anemia secondary to blood loss (chronic) Referrals Neurology Referral I63.9 - Cerebral infarction, unspecified, I69.320 - Aphasia following cerebral infarction Cardiology Referral I48.91 - Unspecified atrial fibrillation Medications: New ferrous sulfate 325 mg PO DAILY 30 days 30 tabs 2RF D50.0 - Iron deficiency anemia secondary to blood loss (chronic), D50.9 - Iron deficiency anemia, unspecified hydrocortisone 1% (Cortisone (hydrocortisone)) 1 appl topical BID 15 days PRN 28.4 grams 0RF skin irritation L30.9 - Dermatitis, unspecified Discontinued rivaroxaban must administer with evening meal 20 mg PO DAILY 90 days 90 tabs 2RF I48.91 - Unspecified atrial fibrillation Coding Level of Care Code Est Pt Level 4 (01205) Diagnoses Anemia D50.0 Anemia type: iron deficiency Iron deficiency anemia type: chronic blood loss Smoker F17.200 Afib I48.19 Atrial fibrillation type: persistent (not longstanding) Stroke I63.39 CVA mechanism: thrombosis Precerebral and cerebral artery: other cerebral artery Aphasia as late effect of stroke I69.320 Dermatitis L30.9 Bladder outlet obstruction N32.0
== END 2022-09-14 10:35 | disposition home or self-care (01) ==
PROVIDERS: PCP Physician Assistant; Visit Provider Physician Assistant
DX: D50.0 Iron deficiency anemia secondary to blood loss (chronic) (principal); F17.200 Nicotine dependence, unspecified, uncomplicated; I48.19 Other persistent atrial fibrillation; I63.39 Cerebral infarction due to thrombosis of other cerebral artery; I69.320 Aphasia following cerebral infarction; L30.9 Dermatitis, unspecified; N32.0 Bladder-neck obstruction
CPT/HCPCS: 99214

== ENCOUNTER → 2022-09-20 13:09 | Outpatient (BNV) | payer MEDICARE, SELFPAY | PROVIDERS: PCP Physician Assistant; Visit Provider Internal Medicine | DX: D64.9 Anemia, unspecified (principal); N18.30 Chronic kidney disease, stage 3 unspecified | CPT/HCPCS: 99204 ==

== ENCOUNTER 2022-09-21 14:32 | Outpatient (REF) | payer MEDICARE, OTHER, SELFPAY ==
--- NOTE | ~2022-09-21 | US_ITS ---
EXAMINATION: US EXTRACRANIAL CAROTID DUPLEX, BILATERAL CLINICAL INFORMATION: Cerebral infarction. COMPARISON: None available. TECHNIQUE: Real-time ultrasound and Doppler techniques (integrating B-mode 2-D vascular images, Doppler spectral analysis and color-flow Doppler imaging) were utilized to interrogate the extracranial carotid arteries, the vertebral arteries and proximal subclavian arteries bilaterally. The degree of stenosis is determined by criteria similar to NASCET. FINDINGS: Right Side: 1. There is mild atherosclerotic plaque seen in the bifurcation/proximal ICA region. 2. The common carotid artery PSV proximally is 91 cm/s and distally 58 cm/s. 3. The proximal internal carotid artery velocities are 46 cm/s systolic and 11 cm/s diastolic. 4. The proximal external carotid artery PSV is 86 cm/s. 5. The vertebral artery shows antegrade flow. 6. The subclavian artery waveforms are biphasic. Left Side: 1. There is mild atherosclerotic plaque seen in the bifurcation/proximal ICA region. 2. The common carotid artery PSV proximally is 101 cm/s and distally 58 cm/s. 3. The proximal internal carotid artery velocities are 68 cm/s systolic and 16 cm/s diastolic. 4. The proximal external carotid artery PSV is 93 cm/s. 5. The vertebral artery shows antegrade flow. 6. The subclavian artery waveforms are biphasic. US/US carotid duplex BI IMPRESSION: 1. RIGHT: Minimal, non-hemodynamically significant stenosis of the proximal right internal carotid artery corresponding to a 0-49% stenosis by velocity criteria. 2. LEFT: Minimal, non-hemodynamically significant stenosis of the proximal left internal carotid artery corresponding to a 0-49% stenosis by velocity criteria.
== END 2022-09-21 14:33 | disposition home or self-care (01) ==
LOC: HO.US 14:32
PROVIDERS: PCP Physician Assistant; Visit Provider Physician Assistant
DX: I48.91 Unspecified atrial fibrillation (principal); Z86.73 Personal history of transient ischemic attack (TIA), and cerebral infarction without residual deficits
CPT/HCPCS: 93880

== ENCOUNTER → 2022-09-29 14:21 | Outpatient (BNVA) | payer MEDICARE, OTHER, SELFPAY | PROVIDERS: PCP Physician Assistant; Visit Provider Urology | DX: N32.0 Bladder-neck obstruction (principal) | CPT/HCPCS: 51798 ==

== ENCOUNTER 2023-05-05 08:07 | Outpatient (AMB) | payer MEDICARE, SELFPAY ==
--- NOTE | 2023-05-05 08:09 | A.OFFVIS_ITS ---
Intake Vital Signs 05/05/23 08:18 Height 5 ft 8 in Weight 135 lb 6 oz BMI 20.6 BP 132/80 Blood Pressure Location Lt brachial Position Sitting Pulse 85 Pulse Source Pulse Oximeter Pulse Oximetry (%) 95 Oxygen Delivery Method Room Air Intake Visit Reasons: I-SOUND EDITOR: Cerebral infarction /Aphasia following- conf Intake Note: Patient presents for Cerebral infarction/Aphasia. Allergies No Known Allergies Allergy (Verified 05/05/23 08:15) HPI HPI Comments History of Present Illness Details 78 y/o male patient presents for new in- person visit to manage s/p CVA. Pt is accompanied by his nice whom gives patient history. Pt has history of atrial fibrillation not anticoagulation, but not on anticoagulation. Pt had a CVA last summer. MRI brain showing occipital infarcts. He has expressive aphasia and some mild memory deficit. The carotid duplex BI result revewed. IMPRESSION: 1. RIGHT: Minimal, non-hemodynamically s ignificant stenosis of the proximal right internal carotid artery corresponding to a 0-49% stenosis by velocity criteria. 2. LEFT: Minimal, non-hemodynamically si gnificant stenosis of the proximal left internal carotid artery corresponding to a 0-49% stenosis by velocity criteria. Pt is current holding anticoagulation due to contraindications with anemia and hematuria. Patient did sustain significant anemia requiring blood transfusion. Pt was evaluated by urologist and s/p stent for bladder outlet obstruction. And still hold for anticoagulation. He is on atorvastatin 40 mg daily. Pt completed speech therapy. He can do ADLs independently. He can drive locally. Pt reports snoring, non refreshing sleep, he wakes up every hour in the middle of night. 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 Mother Cancer Sister Cancer Other Mental health disorder Social History Household Members: None Housing: Apartment Do you presently have visiting nurse or other home services: No Alcohol intake: unknown Patient Tobacco Use Status: Current everyday Tobacco user Tobacco use type: Cigarette e-Cigarette/Vaping Use: Never Used service: No Current occupational status: unemployed and disabled Cognitive needs: No Hearing needs: No Vision needs: No Review of Systems Neuro Reports Abnormal speech present Physical Exam Vital Signs: Last Vital Signs Pulse 85 05/05/23 08:18 BP 132/80 05/05/23 08:18 Pulse Ox 95 05/05/23 08:18 Oxygen Delivery Method Room Air 05/05/23 08:18 BMI result Body Mass Index 20.6 Const General: cooperative Nutritional Appearance: average body habitus Orientation/consciousness: patient oriented x3 Limitations: language barrier Neuro General: patient oriented x3, gait normal and moves all extremities Cranial nerves: Yes CN's II-XII intact bilaterally Cognition (Neuro): normal cognition Speech: Abnormal speech present and Expressive aphasia present Motor exam (neuro): 5/5 motor strength present throughout Deep tendon reflexes (DTR's): Rt Biceps (C5, C6): 2+, Left biceps reflex intensity grade: 2+, Right brachioradialis reflex intensity grade: 2+, Left brachioradialis reflex intensity grade: 2+, Right patellar reflex intensity grade: 2+ and Left patellar reflex intensity grade: 2+ Psych Appearance: grossly normal Mental Status: mental status grossly normal Affect: normal affect Attitude: cooperative Assessment & Plan Assessment & Plan (1) Stroke: Code(s): I63.9 - Cerebral infarction, unspecified Qualifiers: CVA mechanism: thrombosis Precerebral and cerebral artery: other cerebral artery Qualified Code(s): I63.39 - Cerebral infarction due to thrombosis of other cerebral artery (2) Aphasia as late effect of stroke: Code(s): I69.320 - Aphasia following cerebral infarction (3) Snoring: Code(s): R06.83 - Snoring (4) Daytime sleepiness: Code(s): R40.0 - Somnolence Plan Will contact pt's urology for clearance for anticoagulation. Pt and his niece is not sure he has cardiology follow up appointment. Referral is placed to cardiology for further management. Continue carvedilol 25 mg twice daily and atorvastatin 40 mg daily as prescribed. Advised patient to undergo in lab sleep study to assess sleep apnea. Will follow up after sleep study for appropriate treatment options. Advised patient to reduce smoking. Orders: Orders RT PSG in-lab sleep study Today I48.91 - Unspecified atrial fibrillation, I63.9 - Cerebral infarction, unspecified, R06.83 - Snoring, R40.0 - Somnolence Coding Level of Care Code New Pt Level 4 (70849) Diagnoses Cerebrovascular accident (CVA) due to thrombosis of other cerebral artery I63.39 CVA mechanism: thrombosis Precerebral and cerebral artery: other cerebral artery Aphasia as late effect of stroke I69.320 Snoring R06.83 Daytime sleepiness R40.0
[2023-05-05 08:18] VITALS: BP 132/80; PULSE 85; O2SAT 95; BMI 20.6
== END 2023-05-05 08:48 | disposition home or self-care (01) ==
PROVIDERS: PCP Physician Assistant; Visit Provider Nurse Practitioner Family
DX: I63.39 Cerebral infarction due to thrombosis of other cerebral artery (principal); I69.320 Aphasia following cerebral infarction; R06.83 Snoring; R40.0 Somnolence
CPT/HCPCS: 99204; 99214

== ENCOUNTER → 2023-05-05 08:07 | Outpatient (BNVA) | payer MEDICARE, SELFPAY | PROVIDERS: PCP Physician Assistant; Visit Provider Nurse Practitioner Family | DX: I63.39 Cerebral infarction due to thrombosis of other cerebral artery (principal); I69.320 Aphasia following cerebral infarction; R06.83 Snoring; R40.0 Somnolence | CPT/HCPCS: 99202 ==

== ENCOUNTER 2023-05-11 13:59 | Outpatient (AMB) | payer MEDICARE, SELFPAY ==
--- NOTE | 2023-05-11 14:08 | MHC.OFFVIS ---
Intake Intake Visit Reasons: stent removal Intake Note: Patient is Present for Cystoscopy/Stent removal Urology Med:Finasteride, Tamsulosin Antibiotic Allergy:None Blood Thinner: None URO- G Disposable Cystoscope lot: [id number] exp: 07/17/24 Allergies No Known Allergies Allergy (Verified 05/05/23 08:15) HPI HPI Comments History of Present Illness Details Gui is a pleasant Bengali-speaking male. He is a patient Dr. Francis. He seen for the following urologic conditions - urinary retention - hydronephrosis - chronic paraphimosis Here for stent removal Cystoscopy performed - prostate has shown some degree of shrinkage, able to see stent, patient unable to remain still long enough for stent to be grasped Recommend GreenLight with stent removal prostate Bladder outlet obstruction Seen in hospital for urinary retention with left hydronephrosis Found to have a large prostate with J hooking on left ureter [facility] Medical History (Updated 05/11/23 @ 14:52 by Nash Rivera MD) CVA (cerebral vascular accident) 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 Mother Cancer Sister Cancer Other Mental health disorder Social History Household Members: None Housing: Apartment Do you presently have visiting nurse or other home services: No Alcohol intake: unknown Patient Tobacco Use Status: Current everyday Tobacco user Tobacco use type: Cigarette e-Cigarette/Vaping Use: Never Used service: No Current occupational status: unemployed and disabled Cognitive needs: No Hearing needs: No Vision needs: No Review of Systems Const Denies chills and Denies fever(s) Card Reports no additional complaints and Denies syncope Resp Denies cough GI Denies abdominal pain and Denies heartburn Reports as per HPI and Denies change in libido Neuro Denies syncope Psych Denies change in libido Endo Denies change in libido Physical Exam Const General: cooperative, healthy appearing, comfortable and no acute distress Orientation/consciousness: patient oriented x3 HEENT Face and sinus: Yes normal facial exam Mouth: moist mucous membranes Neck Neck: Yes normal visual inspection, Yes full ROM and Yes trachea midline Chest Chest palpation & inspection: normal inspection of the chest Resp Effort & Inspection: normal respiratory effort, able to speak in complete sentences and no respiratory distress GI Inspection: Yes normal to inspection Back/Spine/Pelvis Cervical Spine: normal cervical lordosis Thoracic/Lumbar Spine: thoracic and lumbar spine normal to inspection Skin General skin exam: no rashes or lesions noted Neuro General: patient oriented x3, gait normal, tone normal and moves all extremities Extrem General: Yes normal to inspection and Yes capillary refill normal Office Procedures Cystoscopy Consent Discussed risk and benefit or proposed procedure with the patient. Information consent for procedure given to the patient. Discussed technical aspects, risks, benefits and alternatives in full. Addressed all of the patient's questions and concerns regarding the procedure. The patient demonstrated knowledge and understanding. They wish to proceed with this procedure. Preparation The patient was prepped in the usual manner. A hyperion administrator was present and in the room. Genitalia was prepped with betadine solution in a sterile manner. Lidocaine Jelly 2% was placed into the urethra and 16Fr flexible Olympus cystoscope was inserted into the meatus after adequate lubrication. [id number] with stent removal DISPOSABLE SCOPE URO-G FLEXIBLE SCOPE Procedure code (CPT) selection complete Office Meds lidocaine HCl 2 % mucosal jelly in applicator Performing Provider: Nash Rivera MD Performing Location: [facility] [place] [facility] Administered by: Andreia Rincon RN on 05/11/23 14:27 Dose Route Admin Location Dispensed Lot Number Expiration Date NDC Die Equipment Operator 10 mL intra-urethral 10 mL nitrofurantoin monohydrate/macrocrystals 100 mg capsule Performing Provider: Nash Rivera MD Performing Location: [facility] [place] [facility] Administered by: Andreia Rincon RN on 05/11/23 14:27 Dose Route Admin Location Dispensed Lot Number Expiration Date NDC Die Equipment Operator 100 mg PO 1 cap naproxen 500 mg tablet Performing Provider: Nash Rivera MD Performing Location: [facility] [place] [facility] Administered by: Andreia Rincon RN on 05/11/23 14:27 Dose Route Admin Location Dispensed Lot Number Expiration Date NDC Die Equipment Operator 500 mg PO 1 tab Assessment & Plan Assessment & Plan (1) Bladder outlet obstruction: Code(s): N32.0 - Bladder-neck obstruction (2) Hydronephrosis: Code(s): N13.30 - Unspecified hydronephrosis Plan We discussed the nature of the decision and reasonable options for performing a prostate intervention. Interventions include TURP, GreenLight laser enucleation of the prostate, GreenLight laser ablation of the prostate, transurethral incision of the prostate, and I-Tend prostate procedure. Options such as medical therapy were discussed. The relative uncertainties and benefits related to each alternate procedure were adequately discussed. General surgical risks including, but not limited to, pain, bleeding, infection, myocardial infarction, pulmonary embolus, deep vein thrombosis and cerebrovascular accident which may result in further hospitalization were discussed. Full disclosure of the procedure as well as all major risks, benefits and complications were discussed including but not limited to damage to the urethra or bladder neck, recurrent BPH, retrograde ejaculation, bladder infection, urge, de malaika frequency, incomplete emptying, dysuria, remote chance of erectile dysfunction, epididymitis, and meatal stenosis. The success rate of the procedure was discussed. Success of the procedure in the short-term does not necessarily guarantee that long-term success will be maintained. Suitable follow up will need to be maintained. The patient showed understanding of discussion. An opportunity was provided for questions to be answered and wishes to proceed with the following procedure. - cystoscopy, greenlight laser with left stent removal Orders: Orders AMB Cystoscopy Today N13.30 - Unspecified hydronephrosis, N20.0 - Calculus of kidney Patient Instructions: Imaging studies, laboratory and physical exam results were discussed and reviewed in detail. No major barriers to patient understanding were identified. An opportunity to ask questions regarding the treatment plan was provided. All questions were answered. The patient expressed understanding and agreement with the above treatment plan. The patient is aware they should contact our office by phone for worsening of their current condition or the appearance of new urologic symptoms. Compliance is encouraged with any medications and followup testing that is ordered. It is a privilege to participate in the urologic care of your patient. If you have any questions or concerns regarding treatment for the above conditions, or other urologic issues, please do not hesitate to contact me. The office telephone contact is [phone]. This note is constructed using voice recognition software. While every effort has been made to ensure accuracy municipal services manager errors may have been included. Yours sincerely, Dr Nash Rivera MD, SERAF[facility] - Urology Providers of Expert, Compassionate Care for the Genitourinary System Coding Level of Care Code Est Pt Level 4 (21958) Diagnoses Bladder outlet obstruction N32.0 Hydronephrosis N13.30 CPT Codes Cystoscopy - CPT: 35925-[id number] with stent removal ([id number])
== END 2023-05-11 14:58 | disposition home or self-care (01) ==
PROVIDERS: PCP Physician Assistant; Visit Provider Urology
DX: N20.0 Calculus of kidney (principal); N13.30 Unspecified hydronephrosis; N32.0 Bladder-neck obstruction; Z96.0 Presence of urogenital implants
CPT/HCPCS: 52310; 99213

== ENCOUNTER → 2023-05-11 13:59 | Outpatient (BNVA) | payer MEDICARE, SELFPAY | PROVIDERS: PCP Physician Assistant; Visit Provider Urology | DX: N32.0 Bladder-neck obstruction (principal); N13.30 Unspecified hydronephrosis | CPT/HCPCS: 52310; 99212 ==

== ENCOUNTER 2023-07-07 09:04 | Outpatient (AMB) | payer MEDICARE, SELFPAY ==
[2023-07-07 09:15] VITALS: BP 120/68; PULSE 74; O2SAT 98; BMI 20.3
--- NOTE | 2023-07-07 09:15 | MHC.OFFVIS ---
Vital Signs 07/07/23 09:15 Height 5 ft 8 in Weight 133 lb 9.602 oz BMI 20.3 BP 120/68 Blood Pressure Location Lt brachial Position Sitting Pulse 74 Pulse Source Monitor Pulse Oximetry (%) 98 Oxygen Delivery Method Room Air Intake Visit Reasons: preop Intake Note: PT IS HERE FOR PREOP CLEARANCE PT FEELS GOOD PT IS CONCERNED HE IS LOSING TOO MUCH WEIGHT Mold Checker Required: Yes Mold Checker Name: LILIANA [id number] Allergies No Known Allergies Allergy (Verified 05/05/23 08:15) Medication List - Last Reconciled 07/07/23 by Madeleine Hernandez, [employer]IC[employer] PACKAGE SYMBOL STAMPER-C atorvastatin 40 mg PO BEDTIME blood pressure test kit-medium As directed carvedilol 25 mg PO BID ferrous sulfate 325 mg PO DAILY 30 days finasteride 5 mg PO DAILY 90 days hydrocortisone 1% (Cortisone (hydrocortisone)) 1 appl topical BID PRN 15 days mirtazapine 15 mg PO BEDTIME 30 days nicotine (polacrilex) (Nicorette) 2 mg buccal Q2-4H PRN tamsulosin 0.4 mg PO DAILY HPI HPI preop: Details: Gui is a 78 yo male with PMH of HTN, chronic afib, right bundle branch block, nonischemic CMP, CVA, hematuria with anticoagulation use, urinary stent who is in need of urological procedure with Dr. Rivera in the near future. His last prior visit to our office was 06/30/2021. Today he is noted to have some expressive aphasia. This is a result of his prior CVA. A certified human resource assistant is used. In addition his daughter from [place] is on the cell phone. She speaks Lithuanian and is helping him with communication. He denies any chest discomfort, shortness of breath, heart palpitations. Is not having any active issues with bleeding. No lightheadedness, presyncope, syncope, falling. He is mostly sedentary. He walks slowly and only short distances. He has full mobility of his arms and legs. He takes his meds as directed and manages them himself. He is leaving tomorrow to go to [place] and will return on 07/12. His TURP surgery is planned for 07/24/2023. 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 Mother Cancer Sister Cancer Other Mental health disorder Social History Household Members: None Housing: Apartment Do you presently have visiting nurse or other home services: No Alcohol intake: unknown Patient Tobacco Use Status: Current everyday Tobacco user Tobacco use type: Cigarette e-Cigarette/Vaping Use: Never Used service: No Current occupational status: unemployed and disabled Cognitive needs: No Hearing needs: No Vision needs: No Review of Systems Const All systems reviewed & are unremarkable except as noted in HPI and below Reports fatigue and Denies weakness ENT Details: speech difficulties Denies dizziness Card Denies chest pain, Denies chest pain with activity, Denies syncope, Denies rapid heart rate, Denies pedal edema, Denies edema, Denies leg edema, Denies lightheadedness, Denies palpitations, Denies dyspnea, Denies dyspnea on exertion and Denies orthopnea Resp Denies cough, Denies dyspnea and Denies dyspnea on exertion GI Denies hematochezia and Denies change in stool character Musc Details: walks only short distances Denies abnormal gait, Denies muscle cramps, Denies muscle weakness, Denies numbness, Denies radiating pain into limb and Denies tingling Neuro Denies abnormal gait, Denies dizziness, Denies syncope, Denies numbness, Denies tingling and Denies weakness Endo Reports fatigue and Denies palpitations Physical Exam Vital Signs: Last Vital Signs Pulse 74 07/07/23 09:15 BP 120/68 07/07/23 09:15 Pulse Ox 98 07/07/23 09:15 Oxygen Delivery Method Room Air 07/07/23 09:15 BMI result Body Mass Index 20.3 Const General: cooperative, healthy appearing, comfortable and no acute distress Orientation/consciousness: patient oriented x3 Neck Neck: Yes normal visual inspection and Yes no JVD Resp Effort & Inspection: normal respiratory effort Auscultation: clear to auscultation bilaterally, no rales, no rhonchi and no wheezes Cardio Jugular venous distension: no JVD Rate: regular rate Rhythm: regular rhythm Heart sounds: S1 normal heart sound present, S2 normal heart sound present, no murmurs and no rubs Neuro General: patient oriented x3 Extrem General: Yes normal to inspection, No no pedal edema and No calf tenderness Psych Appearance: grossly normal Mental Status: mental status grossly normal Speech and movement: Normal speech and movement present Office Procedures EKG Details: Today, read by me, atrial fibrillation, right bundle branch block, left posterior fascicular block, can not exclude prior inferior infarct, T-wave abnormality far lateral leads, rate 74, QTC 472 millisecond [id number], Complete Assessment & Plan Assessment & Plan (1) Cardiomyopathy: Code(s): I42.9 - Cardiomyopathy, unspecified Category: Medical Qualifiers: Cardiomyopathy type: unspecified Qualified Code(s): I42.9 - Cardiomyopathy, unspecified Plan: History of cardiomyopathy, likely nonischemic.. Echo done 11/06/19 shows EF 35-40%, [id number] MR, moderate TR, RVSP 62 mm of mercury, moderate to severe pulmonary hypertension, small pericardial effusion. Nuclear stress test done 02/18/2020 showing likely normal myocardial perfusion imaging with no evidence of infarct or ischemia, EF 32%. He had been on appropriate medical management with carvedilol, lisinopri. Since last visit in 2021 he did have admission with BECKY/CKD and it seems lisinopril was stopped. Is currently only on carvedilol for neurohormonal modulation. Last labs done 09/14/2022 had shown creatinine 1.67. Will enter lab orders for CMP, CBC. Patient informed to obtain. On examination today he does not appear fluid overloaded. He tells me he does have some shortness of breath with activity and admits to being mostly sedentary. He is preop for urological procedure. Will update cardiac testing including pharmacological nuclear stress test and echocardiogram. He will not be able to exercise on a treadmill. With his weight a 1 day protocol can be completed. No med changes made at this time. Once echo and labs reviewed then med adjustments can be better determined. Signs and symptoms of heart failure reviewed. Cardiology office visit in 2 months, sooner if needed. (2) RBBB: Code(s): I45.10 - Unspecified right bundle-branch block Category: Medical Plan: Present on EKG, also finding of left posterior fascicular block, T-wave abnormality V5 and V6, different from prior EKG. Will be checking pharmacological nuclear stress test. (3) Afib: Code(s): I48.91 - Unspecified atrial fibrillation Category: Medical Qualifiers: Atrial fibrillation type: persistent (not longstanding) Qualified Code(s): I48.19 - Other persistent atrial fibrillation Plan: Hx of chronic Afib. Holter monitor done on 07/09/2021 for 3 days shows atrial fibrillation with average heart rate 78 beats per minute, longest pause 2.78 seconds, occasional PVCs, 115 beat wide complex rhythm suggesting aberrant conduction. He has been on carvedilol for heart rate control. He had been on Xarelto for anticoagulation at the time of last visit. He did start with expressive aphasia on 08/05/2022. It seems he was not taking his anticoagulation at that time for unclear reason. During his hospitalization he was started on Xarelto and had hematuria. He is now being treated by Urology and will need to undergo TURP in the near future. Chads Vasc score of 6. High stroke risk reviewed with him. Informed him that he will need to go back on anticoagulation as soon as cleared by Urology to do so. Emergency care if needed for any new neurological changes. EKG done today showing atrial fibrillation, rate 74. Will continue to treat AFib with heart rate control. (4) HTN (hypertension): Code(s): I10 - Essential (primary) hypertension Category: Medical Qualifiers: Hypertension type: primary hypertension Qualified Code(s): I10 - Essential (primary) hypertension Plan: Normal range today. No med changes made. (5) Preop cardiovascular exam: Code(s): Z01.810 - Encounter for preprocedural cardiovascular examination Category: Medical Plan: Preop for urological procedure including TURP with Dr. Rivera on 07/24/2023. Patient is mostly sedentary. Known to have likely nonischemic cardiomyopathy with last EF 25-30%. Will be updating echocardiogram and nuclear stress test prior to his surgery. Addendum will be added to this note once test results are known. Plan Time spent on chart review, documentation, interview and assessment Orders: Orders CA echo transthoracic complete Today I42.9 - Cardiomyopathy, unspecified NM cardiolite stress test Today I42.9 - Cardiomyopathy, unspecified, I45.10 - Unspecified right bundle-branch block, I48.19 - Other persistent atrial fibrillation, Z01.810 - Encounter for preprocedural cardiovascular examination Comprehensive Met. Panel Today I10 - Essential (primary) hypertension, I42.9 - Cardiomyopathy, unspecified Complete Blood Count Auto Diff Today I10 - Essential (primary) hypertension, I42.9 - Cardiomyopathy, unspecified CA lexiscan stress w john Today I42.9 - Cardiomyopathy, unspecified, I45.10 - Unspecified right bundle-branch block, Z01.810 - Encounter for preprocedural cardiovascular examination Coding Level of Care Code Est Pt Level 4 (66474) Diagnoses Cardiomyopathy, unspecified type I42.9 Cardiomyopathy type: unspecified RBBB I45.10 Persistent atrial fibrillation I48.19 Atrial fibrillation type: persistent (not longstanding) Primary hypertension I10 Hypertension type: primary hypertension Preop cardiovascular exam Z01.810 CPT Codes EKG - CPT: 54031-[id number], Complete ([id number]) Time Spent (min) 30
== END 2023-07-07 09:59 | disposition home or self-care (01) ==
PROVIDERS: PCP Physician Assistant; Visit Provider Nurse Practitioner Family
DX: I42.9 Cardiomyopathy, unspecified (principal); I45.10 Unspecified right bundle-branch block; I48.19 Other persistent atrial fibrillation; I10 Essential (primary) hypertension; Z01.810 Encounter for preprocedural cardiovascular examination
CPT/HCPCS: 93010; 99214

== ENCOUNTER → 2023-07-07 09:04 | Outpatient (BNVA) | payer MEDICARE, SELFPAY | PROVIDERS: PCP Physician Assistant; Visit Provider Nurse Practitioner Family | DX: Z01.810 Encounter for preprocedural cardiovascular examination (principal); I42.9 Cardiomyopathy, unspecified; I45.10 Unspecified right bundle-branch block; I48.19 Other persistent atrial fibrillation; I10 Essential (primary) hypertension; Z79.899 Other long term (current) drug therapy | CPT/HCPCS: 93005; 99212 ==

== ENCOUNTER 2023-07-14 13:42 | Outpatient (AMB) | payer MEDICARE, SELFPAY ==
--- NOTE | 2023-07-14 13:47 | A.OFFVIS_ITS ---
Intake Visit Reasons: H&P Greenlight Intake Note: Patient is Present for Telephone Follow Up For Urology Med:F Antibiotic Allergy: Blood Thinner: Allergies No Known Allergies Allergy (Verified 05/05/23 08:15) HPI Comments Details: Gui is a pleasant Botswanan-speaking male. He is a patient Dr. Francis. He seen for the following urologic conditions - urinary retention - hydronephrosis - chronic paraphimosis Telemedicine Evaluation 15 min Consultation [employer] Bernard Video attempted Botswanan translation performed by qualified medical van driver He wanted us to call his daughter Martha Wilkins left Plan for upcoming procedure GreenLight laser with stent removal Prior Cystoscopy performed - prostate has shown some degree of shrinkage, able to see stent, patient unable to remain still long enough for stent to be grasped Bladder outlet obstruction Seen in hospital for urinary retention with left hydronephrosis Found to have a large prostate with J hooking on left ureter PFSH Medical History CVA (cerebral vascular accident) 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 Mother Cancer Sister Cancer Other Mental health disorder Social History Household Members: None Housing: Apartment Do you presently have visiting nurse or other home services: No Alcohol intake: unknown Patient Tobacco Use Status: Current everyday Tobacco user Tobacco use type: Cigarette e-Cigarette/Vaping Use: Never Used service: No Current occupational status: unemployed and disabled Cognitive needs: No Hearing needs: No Vision needs: No Telehealth Telehealth Location of provider rendering services: practice address Location of patient: address on file Patient Identification confirmed using: Name, : Yes Telehealth method: voice only Patient verbally consented to treatment: Yes Patient verbally consented to billing insurance company: Yes Patient informed of any privacy concerns related to visit: Yes Assessment & Plan Assessment & Plan (1) Hydronephrosis: Code(s): N13.30 - Unspecified hydronephrosis Category: Medical (2) Bladder outlet obstruction: Code(s): N32.0 - Bladder-neck obstruction Category: Medical Plan Risks, benefits and alternatives to therapy were discussed. These include but are not limited to infection, bleeding, damage to local organs and tissues, need for further interventions. Anesthetic risks regarding cardiac arrhythmia, blood clots, and potential mortality were discussed. The patient understands the typical recovery time and the outpatient nature of the procedure. After consideration of these risks the patient gives full informed consent and they wish to move ahead with the procedure. GreenLight laser with stent removal Patient Instructions: Imaging studies, laboratory and physical exam results were discussed and reviewed in detail. No major barriers to patient understanding were identified. An opportunity to ask questions regarding the treatment plan was provided. All questions were answered. The patient expressed understanding and agreement with the above treatment plan. The patient is aware they should contact our office by phone for worsening of their current condition or the appearance of new urologic symptoms. Compliance is encouraged with any medications and followup testing that is ordered. It is a privilege to participate in the urologic care of your patient. If you have any questions or concerns regarding treatment for the above conditions, or other urologic issues, please do not hesitate to contact me. The office telephone contact is [phone]. This note is constructed using voice recognition software. While every effort has been made to ensure accuracy mottle lay up operator errors may have been included. Yours sincerely, Dr Nash Rivera MD, SER[facility] - Urology Providers of Expert, Compassionate Care for the Genitourinary System Coding Level of Care Code Tele Est Pt Level 3 (48630) Diagnoses Hydronephrosis N13.30 Bladder outlet obstruction N32.0
== END 2023-07-14 16:29 | disposition home or self-care (01) ==
LOC: HO.HUSH 13:42
PROVIDERS: PCP Physician Assistant; Visit Provider Urology
DX: N13.30 Unspecified hydronephrosis (principal); N32.0 Bladder-neck obstruction
CPT/HCPCS: 99442

== ENCOUNTER → 2023-07-17 14:20 | Outpatient (BNV) | payer MEDICARE, SELFPAY | PROVIDERS: Visit Provider Internal Medicine Cardiovascular Disease | DX: I35.2 Nonrheumatic aortic (valve) stenosis with insufficiency (principal); I36.1 Nonrheumatic tricuspid (valve) insufficiency; I34.0 Nonrheumatic mitral (valve) insufficiency; I34.81 Nonrheumatic mitral (valve) annulus calcification | CPT/HCPCS: 93306 ==

== ENCOUNTER → 2023-07-17 14:21 | Outpatient (REF) | payer MEDICARE, SELFPAY ==
--- NOTE | 2023-07-17 14:20 | CA_ITS ---
Transthoracic Echocardiogram Patient (Last, First, Middle): Gui Werner, Gender: Male Date of : 1945 Age: 78 Procedure Date: 07/17/2023 Procedure Type: Transthoracic Echocardiogram Location: OP Height: 172. cm Weight: 61.24 kg BSA: 1.72 m2 Heart Rate: 80 bpm BP: 130 / 60 mmHg Banana Expert: PAVAN Referring MD: Madeleine Hernandez SOLE MOLDING MACHINE OPERATOR-Ramsey Bait Maker: Dao France MD Symptoms: I42.9 - Cardiomyopathy, unspecified Study Quality: Adequate ECG Rhythm: Atrial Fibrillation Conclusions: - 1. Mildly reduced LV ejection fraction 45-50% with mild LVH 2. Moderately reduced RV systolic function 3. Severe left atrial and moderate right atrial enlargement 4. Early mild aortic stenosis and mild regurgitation 5. [id number] mitral and tricuspid regurgitation 6. Upper limits of normal RV systolic pressure 7. Mildly dilated ascending aorta at 3.7 cm 8. Small pericardial effusion near the right-sided chambers Findings Left Ventricle Normal left ventricular cavity size. There is mildly increased left ventricular wall thickness. The left ventricular systolic function is mildly decreased. The visually estimated ejection fraction is between 45-50%. Diastolic function is indeterminate on the basis of available data. Right Ventricle Mildly increased right ventricular cavity size. There is moderately decreased right ventricular systolic function. Atria The left atrium is severely dilated. There is no evidence of interatrial shunt. The right atrium is moderately dilated. Aortic Valve There is mild calcification of the aortic valve. There is mild thickening of the aortic valve. There is mild aortic valve stenosis. There is mild aortic valve regurgitation. Mitral Valve There is mild anterior and moderate posterior mitral leaflet thickening. There is moderate mitral annular calcification. There is mild to moderate mitral valve regurgitation. There is no mitral valve stenosis. Pulmonic Valve The pulmonic valve is likely normal. Tricuspid Valve Normal tricuspid valve structure. There is mild to moderate tricuspid valve regurgitation. There is no evidence of pulmonary hypertension. Great Vessels The pulmonary artery was not well visualized. There is mild dilatation of the ascending aorta measuring 3.70 cm. Venous The inferior vena cava is normal in size and collapses greater than 50% with inspiration. Pericardium/Pleural There is a small loculated pericardial effusion overlying the right ventricle and right atrium. Prior Study Comparison Changes noted compared to prior study dated: 08/09/2022. LV systolic function seems to have improved Measurements 2D Linear Measurements IVSd: 1.29 0.6-0.9/0.6-1.0 cm LVIDd: 5.38 3.9-5.3/4.2-5.9 cm LVIDd Index: 3.13 2.4-3.2/2.2-3.1 cm/m2 LVIDs: 4.54 2.0-3.6 cm LVPWd: 1.29 0.7-1.1 cm LA Diam: 4.90 2.7-3.8/3.0-4.0 cm LAIDs Index: 2.85 1.5-2.3 cm/m2 LV Mass: 362.58 67-162/88-224 g LV Mass Index: 210.80 43-95/49-115 g/m2 LVOT Diam: 2.40 3.0+(-)1.3 cm 2D Systolic Function EF 4C: 43.60 >55% EF 2C: 46.60 >55% EF BiP: 46.10 >55% Mitral Valve MV Pk E: 1.06 MV Decel Time: 138.00 E'Lateral: 7.29 E'Medial: 6.64 E/E' Med: 16.00 E/E' Lat: 14.50 PHT: 40.00 MVA PHT: 5.50 Decel [place]: 7.70 MR Vol - PW Dopp: 12.24 MR VTI: 1.36 MR ERO: 9.00 MR Alias Bartolo: 0.39 MR RAD: 0.40 Aortic Valve AoV Pk [place]: 1.73 AoV Mn [place]: 1.24 AoV VTI: 0.35 AoV Pk Grad: 12.00 Aov Mn Grad: 7.00 KIMI Cont.VTI: 2.06 AI Pk [place]: 4.08 AI [place]: 2.65 LVOT LVOT Pk [place]: 0.83 LVOT Mn [place]: 0.57 LVOT VTI: 0.16 LVOT Pk Grad: 3.00 LVOT Mn Grad: 1.00 LVOT Diam: 2.40 LVOT Area: 4.52 Diastolic Function MV Pk E: 1.06 E'Medial: 6.64 E/E' Med: 16.00 E' Laterial: 7.29 E/E' Lat: 14.50 Right Ventricle TAPSE (mm): 11.50 TVS' [place]: 12.30 Tricuspid Valve TR Pk [place]: 2.84 TR Pk Grad: 32.00 RA Press: 3.00 RVSP: 35.00 Great Vessels Aorta Sinus of Valsalva: 3.90 2.0-3.5 cm Ao Asc: 3.70 2.1-3.4 cm Pulmonary Valve PV Pk Bart[place]: 0.86 Peak PV Grad: 3.00 Updated in Other Vendor System with Status of Final Dao France MD electronically signed on 07/18/2023 8:46:05 AM with status of Final
== END ==
LOC: HO.CARD 14:21
PROVIDERS: Visit Provider Nurse Practitioner Family
DX: I42.9 Cardiomyopathy, unspecified (principal)
CPT/HCPCS: 93306

== ENCOUNTER → 2023-07-19 07:36 | Outpatient (REF) | payer MEDICARE, SELFPAY ==
--- NOTE | ~2023-07-19 | NM_ITS ---
Lexiscan Myocardial perfusion study Indication: Cardiomyopathy, assess for coronary disease and ischemia Technique: The patient was brought in for a Lexiscan perfusion study on 07/19/2023 and was injected 0.4 mg of Lexiscan intravenously. Within a minute of this injection 30 mCi of sestamibi was given intravenously. Images were obtained using the SPECT gamma camera interlaced with the gating device. Images were obtained in supine position. Resting perfusion study was performed on 07/19/2023. Patient was administered 10 mCi of sestamibi intravenously at rest. Images were then obtained in supine position. Images were processed with the software and compared side to side in short axis, horizontal long axis and vertical long axis views. Total DLP 88mGy-cm. Findings: Raw acquisition reviewed. Arms by the patient's side. The stress perfusion study showed diminished tracer uptake in the basal part of inferolateral wall. No significant change with CT attenuation correction. The gated study shows diminished LV systolic function with calculated LVEF of 42%. LV cavity is normal in size. The gated study shows globally reduced wall thickening and contraction of segments. Basal inferior wall appears akinetic. Resting study shows diminished tracer uptake in the basal part of inferolateral wall. Similar to stress acquisition. No significant change with CT attenuation correction. Gating at rest reveals basal inferolateral akinesis and ejection fraction at 47%. The findings are consistent with fixed basal inferolateral perfusion defect. No clear reversible defects. NM/NM cardiolite stress test Impression: 1. Myocardial perfusion imaging study shows basal inferolateral infarct. No evidence of ischemia. 2. Gated LVEF is 42% during stress and 47% during rest. 3. Transient ischemic dilatation not present. EKG component of the test reported separately.
--- NOTE | 2023-07-19 07:41 | CA_ITS ---
Acquisition Time: 2023-07-19 10:05:24 Total Exercise Time: 00:02:00 Test Indications: CARDIOMYOPATHY Medications: ATORVASTATIN CARVEDILOL Protocol: LEXISCAN Max HR: 095 BPM 66% of Pred: 143 BPM Max BP: 130/068 mmHG Max Work Load: 1.0 METS Pharmacological stress test with Lexiscan injection while sitting without anginal symptoms, with isolated PVC, with normotensive response to injection, without EKG changes. Aminophyllien 75mg IVP given to reverse Lexiscan. Nuclear images pending. Test reviewed with Dr. France Referred By: Madeleine Hernandez Overread By: Lili Membreno
== END ==
LOC: HO.CARD 07:36
PROVIDERS: PCP Physician Assistant; Visit Provider Nurse Practitioner Family
DX: Z01.810 Encounter for preprocedural cardiovascular examination (principal); I42.9 Cardiomyopathy, unspecified; I45.10 Unspecified right bundle-branch block; I48.19 Other persistent atrial fibrillation
CPT/HCPCS: 78452; 93017; A9500; J0280; J2785

== ENCOUNTER → 2023-07-19 08:31 | Outpatient (BNV) | payer MEDICARE, SELFPAY | PROVIDERS: PCP Physician Assistant; Visit Provider Internal Medicine | DX: I42.9 Cardiomyopathy, unspecified (principal); I49.3 Ventricular premature depolarization | CPT/HCPCS: 78452; 93016; 93018 ==

== ENCOUNTER 2023-07-24 06:56 | Day surgery (SDC) | payer MEDICARE, SELFPAY ==
[2023-07-20 08:42] VITALS: BMI 20.2
--- NOTE | 2023-07-20 14:06 | HO.ANESPROP2 ---
HPI - Anesthesia Eval Consult details Narrative: 78yo M for Laser Ablation Prostate w/Green Light with left stent removal Cardiac optimized. Preop testing with echo and stress. See results below. PMFSH Active Problems Active Problems: All Active Problems Preop cardiovascular exam (Acute) Hydronephrosis (Acute) Daytime sleepiness (Acute) Snoring (Acute) Aphasia as late effect of stroke (Acute) Anemia (Chronic) Smoker (Acute) Hematuria (Acute) Adverse effect of anticoagulant (Acute) Afib (Acute) Paraphimosis (Acute) Bladder outlet obstruction (Acute) Normocytic anemia (Acute) Hypocalcemia (Acute) Stroke (Acute) Tobacco dependence (Acute) Urinary frequency (Acute) Dermatitis (Acute) Adult general medical exam (Acute) Loss of appetite (Acute) Screening for diabetes mellitus (Acute) Screening for hyperlipidemia (Acute) Screening for prostate cancer (Acute) Cardiomyopathy (Acute) RBBB (Acute) HTN (hypertension) (Acute) Past Medical History Medical History CVA (cerebral vascular accident) 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 Mother Cancer Sister Cancer Other Mental health disorder Family history of problems with anesthesia: No Surgical History Surgical History No pertinent past surgical history History of Problems with Anesthesia: No Social History Social History Household Members: None Housing: Apartment Do you presently have visiting nurse or other home services: No Alcohol intake: unknown Patient Tobacco Use Status: Never used Tobacco Tobacco use type: Cigarette e-Cigarette/Vaping Use: Never Used service: No Current occupational status: unemployed and disabled Cognitive needs: No Hearing needs: No Vision needs: No Meds Allergies Allergy/AdvReac Type Severity Reaction Status Date / Time No Known Allergies Allergy Verified 05/05/23 08:15 Exam Height,Weight and Vital Signs: Height 5 ft 8 in Weight 60.328 kg Narrative Narrative: EKG 2023 atrial fibrillation, right bundle branch block, left posterior fascicular block, can not exclude prior inferior infarct, T-wave abnormality far lateral leads, rate 74, QTC 472 millisecond ECHO 07/2023 Conclusions: - 1. Mildly reduced LV ejection fraction 45-50% with mild LVH 2. Moderately reduced RV systolic function 3. Severe left atrial and moderate right atrial enlargement 4. Early mild aortic stenosis and mild regurgitation 5. [id number] mitral and tricuspid regurgitation 6. Upper limits of normal RV systolic pressure 7. Mildly dilated ascending aorta at 3.7 cm 8. Small pericardial effusion near the right-sided chambers NM cardiolite stress test 07/2023 Impression: 1. Myocardial perfusion imaging study shows basal inferolateral infarct. No evidence of ischemia. 2. Gated LVEF is 42% during stress and 47% during rest. 3. Transient ischemic dilatation not present. EKG component of the test reported separately. US carotid duplex BI 2022 IMPRESSION: 1. RIGHT: Minimal, non-hemodynamically significant stenosis of the proximal right internal carotid artery corresponding to a 0-49% stenosis by velocity criteria. 2. LEFT: Minimal, non-hemodynamically significant stenosis of the proximal left internal carotid artery corresponding to a 0-49% stenosis by velocity criteria. Assessment and Plan Assessment Anesthesia Assessment: Chart Reviewed Final Anesthetic Review Family History of Problems with Anesthesia: No History of Problems with Anesthesia: No
[2023-07-24 07:51] VITALS: BP 170/98; PULSE 84; RESP 18; TEMP 36.1; O2SAT 98
[2023-07-24 08:00] LABS: Hematocrit 34.2 % (42.0-52.0); Hemoglobin 11.1 g/dl (14.0-18.0); Mean Corpuscular HGB Conc 32.5 g/dl (31.0-36.0); Mean Corpuscular Volume 86.4 fL (80.0-98.0); Mean Platelet Volume 8.7 fL (9.4-12.4); Platelet Count 319 X10*3/uL (160-400); Red Blood Count 3.96 X10*6/uL (4.60-5.80); Red Cell Distribution Width 14.9 % (11.0-16.0)
[2023-07-24 08:11] LABS: Anion Gap 14 (12-20); Blood Urea Nitrogen 25 mg/dL (9-16); Calcium 9.5 mg/dL (8.4-10.2); Carbon Dioxide 27 mmol/L (22-29); Chloride 106 mmol/L (96-108); Estimated Glomerular Filt Rate 34; Glucose Fasting 105 mg/dL (60-99); Potassium 5.1 mmol/L (3.3-5.1); Sodium 142 mmol/L (135-145)
[2023-07-24 08:15] VITALS: BMI 20.4
--- NOTE | 2023-07-24 08:15 | P.CONAN_ITS ---
[facility] Active Problems Active Problems: All Active Problems Preop cardiovascular exam (Acute) Hydronephrosis (Acute) Daytime sleepiness (Acute) Snoring (Acute) Aphasia as late effect of stroke (Acute) Anemia (Chronic) Smoker (Acute) Hematuria (Acute) Adverse effect of anticoagulant (Acute) Afib (Acute) Paraphimosis (Acute) Bladder outlet obstruction (Acute) Normocytic anemia (Acute) Hypocalcemia (Acute) Stroke (Acute) Tobacco dependence (Acute) Urinary frequency (Acute) Dermatitis (Acute) Adult general medical exam (Acute) Loss of appetite (Acute) Screening for diabetes mellitus (Acute) Screening for hyperlipidemia (Acute) Screening for prostate cancer (Acute) Cardiomyopathy (Acute) RBBB (Acute) HTN (hypertension) (Acute) Past Medical History Medical History CVA (cerebral vascular accident) 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 Mother Cancer Sister Cancer Other Mental health disorder Family history of problems with anesthesia: No Surgical History Surgical History No pertinent past surgical history History of Problems with Anesthesia: No Social History Social History Household Members: None Housing: Apartment Do you presently have visiting nurse or other home services: No Alcohol intake: unknown Patient Tobacco Use Status: Current everyday Tobacco user Tobacco use type: Cigarette e-Cigarette/Vaping Use: Never Used Advance Directives: No Advance Directives Information Provided: Yes service: No Current occupational status: unemployed and disabled Cognitive needs: No Hearing needs: No Vision needs: No Meds Allergies Allergy/AdvReac Type Severity Reaction Status Date / Time No Known Allergies Allergy Verified 05/05/23 08:15 Active Medications: Current Medications Albuterol Sulfate (Albuterol Sulfate (0.083%) 2.5 Mg/3 Ml Vial.Neb) 2.5 mg INHALE ONCE PRN PRN Reason: Shortness of Breath/Wheezing Lactated Ringer's (Lr) 1,000 mls @ 50 mls/hr IVCONT .Q20H NGOC Levofloxacin (Levaquin) 500 mg in 100 mls @ 100 mls/hr IV PREOP ONE Stop: 07/24/23 08:41 Exam Height,Weight and Vital Signs: Height 5 ft 8 in Weight 60.328 kg Last Vital Signs Temp 96.9 F 07/24/23 07:51 Pulse 84 07/24/23 07:51 Resp 18 07/24/23 07:51 BP 170/98 H 07/24/23 07:51 Pulse Ox 98 07/24/23 07:51 O2 Del Method Room Air 07/24/23 07:51 Pertinent Lab Results Pertinent Lab Results: Laboratory Tests 07/24/23 07:54 WBC 8.0 RBC 3.96 L Hgb 11.1 L D Hct 34.2 L MCV 86.4 MCH 28.0 MCHC 32.5 RDW 14.9 Plt Count 319 MPV 8.7 L Absolute Nucleated RBC 0.000 Nucleated RBC % (auto) 0.0 Sodium 142 Potassium 5.1 Chloride 106 Carbon Dioxide 27 Anion Gap 14 BUN 25 H Creatinine 1.95 H Estim Creat Clear Calc 27.0 Estimated GFR 34 Fasting Glucose 105 H Calcium 9.5 D Airway Mallampati Class: II TM Dist: >3cm Neck ROM: Full Heart: irreg re. Lungs: CTA Assessment and Plan Assessment Anesthesia Assessment: Anesthesia Plan Discussed Final Anesthetic Review Family History of Problems with Anesthesia: No History of Problems with Anesthesia: No ASA Class: II Final Preanesthetic Review: Meds/Allgs Chart Reviewed, Consent Obtained/Reviewed and Anes Risks/Benef Reviewed Patient Risk: Intermediate Procedure Risk: Intermediate Anesthetic Plan Anesthetic Plan: GA Disposition: Standard PACU
--- NOTE | 2023-07-24 08:24 | PC.NURSE ---
Pt with expressive aphasia noted. initial assessment of confusion, call placed to niece to return call. pt needs clarification of surgical procedure. Protective Signal Operator present for [place]ican language.
--- NOTE | 2023-07-24 08:41 | MHC.SHP ---
Pre-Procedural Eval Section A - 24 Hr Update-Section A only Date of Service: 07/24/23 The patient is an INPATIENT: No Changes since office visit: No Cold of Flu in the past 2 weeks, No New Medical Problems, No Changes in Medication and No Patient answered all questions The patient has been examined within 24 hours of the surgical procedure. The History & Physical has been completed within 30 days and I have reviewed it.: Yes Section B - Complete if H&P > 30 days Chief Complaint: Feeling of incomplete bladder emptying Relevant Family History (Specify if Yes): No Relevant Social History: None Present Medications: see Short Stay Collaborative assessment Medical History: Significant History History of Previous Operations: No relevant previous surgery Allergies: Allergies Allergy/AdvReac Type Severity Reaction Status Date / Time No Known Allergies Allergy Verified 05/05/23 08:15 Review of Systems Sugical H&P ROS: Negative: Constitution, Cardiovascular, Respiratory, Neurological, Psychiatric, Hem-Onc, Allergic/Immunologic, Gastrointestinal, Genitourinary, Musculoskeletal, Integumentary, Endocrine and Eyes/Ears/Nose/Throat Exam Surgical H&P Exam: Normal: HEENT, Normal: Heart, Normal: Lungs, Normal: Extremities, Normal: Abdomen, Normal: Skin and Normal: Neurological Plan Diagnosis/Plan: Unchanged (Cystoscopy, left stent removal, GreenLight laser prostate) I have reviewed the history and physical and performed a pertinent physical examination on my patient. No changes have occurred unless specified. Time Spent With Patient Time: Total time managing care of this patient today ____ minutes.
--- NOTE | 2023-07-24 09:37 | HO.ANESPROP2 ---
[facility] Active Problems Active Problems: All Active Problems (Updated 07/07/23 @ 10:45 by Madeleine Hernandez NP-C) Preop cardiovascular exam (Acute) Hydronephrosis (Acute) Daytime sleepiness (Acute) Snoring (Acute) Aphasia as late effect of stroke (Acute) Anemia (Chronic) Smoker (Acute) Hematuria (Acute) Adverse effect of anticoagulant (Acute) Afib (Acute) Paraphimosis (Acute) Bladder outlet obstruction (Acute) Normocytic anemia (Acute) Hypocalcemia (Acute) Stroke (Acute) Tobacco dependence (Acute) Urinary frequency (Acute) Dermatitis (Acute) Adult general medical exam (Acute) Loss of appetite (Acute) Screening for diabetes mellitus (Acute) Screening for hyperlipidemia (Acute) Screening for prostate cancer (Acute) Cardiomyopathy (Acute) RBBB (Acute) HTN (hypertension) (Acute) Past Medical History Medical History CVA (cerebral vascular accident) 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 Mother Cancer Sister Cancer Other Mental health disorder Family history of problems with anesthesia: No Surgical History Surgical History No pertinent past surgical history History of Problems with Anesthesia: No Social History Social History Household Members: None Housing: Apartment Do you presently have visiting nurse or other home services: No Alcohol intake: unknown Patient Tobacco Use Status: Current everyday Tobacco user Tobacco use type: Cigarette e-Cigarette/Vaping Use: Never Used Advance Directives: No Advance Directives Information Provided: Yes service: No Current occupational status: unemployed and disabled Cognitive needs: No Hearing needs: No Vision needs: No Meds Allergies Allergy/AdvReac Type Severity Reaction Status Date / Time No Known Allergies Allergy Verified 05/05/23 08:15 Active Medications: Current Medications Albuterol Sulfate (Albuterol Sulfate (0.083%) 2.5 Mg/3 Ml Vial.Neb) 2.5 mg INHALE ONCE PRN PRN Reason: Shortness of Breath/Wheezing Fentanyl (Fentanyl Citrate/Pf 100 Mcg/2 Ml Vial) 25 mcg IVPUSH Q5M PRN; Protocol PRN Reason: Pain, Moderate(Pain Scale 4-6) Stop: 07/24/23 14:57 Lactated Ringer's (Lr) 1,000 mls @ 50 mls/hr IVCONT .Q20H NGOC Ondansetron HCl (Ondansetron Hcl 4 Mg/2 Ml Vial) 4 mg IVPUSH ONCE PRN PRN Reason: Nausea and Vomiting Stop: 07/24/23 14:56 Exam Height,Weight and Vital Signs: Height 5 ft 8 in Weight 60.781 kg Last Vital Signs Temp 96.9 F 07/24/23 07:51 Pulse 84 07/24/23 07:51 Resp 18 07/24/23 07:51 BP 170/98 H 07/24/23 07:51 Pulse Ox 98 07/24/23 07:51 O2 Del Method Room Air 07/24/23 07:51 Pertinent Lab Results Pertinent Lab Results: Laboratory Tests 07/24/23 07:54 WBC 8.0 RBC 3.96 L Hgb 11.1 L D Hct 34.2 L MCV 86.4 MCH 28.0 MCHC 32.5 RDW 14.9 Plt Count 319 MPV 8.7 L Absolute Nucleated RBC 0.000 Nucleated RBC % (auto) 0.0 Sodium 142 Potassium 5.1 Chloride 106 Carbon Dioxide 27 Anion Gap 14 BUN 25 H Creatinine 1.95 H Estim Creat Clear Calc 27.0 Estimated GFR 34 Fasting Glucose 105 H Calcium 9.5 D Airway Mallampati Class: II TM Dist: >3cm Neck ROM: Full Heart: Irreg. Lungs: CTA Assessment and Plan Assessment Anesthesia Assessment: Anesthesia Plan Discussed and Smoking Cess. Discussed Final Anesthetic Review Family History of Problems with Anesthesia: No History of Problems with Anesthesia: No ASA Class: III Final Preanesthetic Review: Meds/Allgs Chart Reviewed, Consent Obtained/Reviewed and Anes Risks/Benef Reviewed Patient Risk: Intermediate Procedure Risk: Intermediate Anesthetic Plan Anesthetic Plan: GA Disposition: Standard PACU
--- NOTE | 2023-07-24 10:15 | P.OP_ITS ---
Operative Note Operative Note Date of Service: 07/24/23 Narrative: PreOperative Diagnosis: Bladder outlet obstruction, retained right stent Post Operative Diagnosis: Bladder outlet obstruction, retained right stent Procedure: GreenLight Laser Enucleation of the prostate CPT 78628 - cystoscopy stent removal Surgeon: Dr Nash Rivera Anesthesia: General Indications for procedure: Had presented to hospital with J hooking and bilateral hydronephrosis late last year. Stent had been placed. Subsequently had cardiac issues that had delayed intervention. Has cardiac clearance. Here today for cystoscopy with bladder outlet procedure and stent removal. Procedure: After informed consent was verified the patient was brought to the operating room and placed in a supine position. Anesthesia was administered per protocol. Patient was placed in modified dorsal lithotomy position and prepped and draped in a sterile fashion. Safety pause time-out was confirmed. Antibiotics have been given. A Twenty-four Japanese laser cystoscope was inserted per urethra. No abnormalities were found of the anterior and bulbar urethra. The bladder was examined and both ureteric orifices were seen in their normal positions away from the area of interest. Using a GreenLight laser with settings of 80 w incisions were made at the 5 and 7 o'clock position. The incisions were taken down from the bladder neck down to the level of the veru. These were gradually deepened in order to define the lateral aspects of the median lobe area. Once clearly defined they will also extended in the lateral directions in order to create a deep groove. The median lobe was then ablated and enucleated tissue released into the bladder with the laser power increased to 120 W. Once the median lobe area had been cleared attention was directed to the lateral lobes. Starting with the patient's left lateral lobe. First the 05:00 o'clock groove was further developed. This was moved in the lateral direction to undermine the tissue on the lateral side running from the bladder neck to the prostate apex. Focus was then placed on the laser at the 1 o'clock position to developing a secondary groove down to the level of bladder fibers. The creation of a second deep groove defined a segment of intervening tissue similar to a slice of orange. At the apex of the prostate the 2 grooves were linked the us releasing the intervening tissue. This tissue was then removed with a combination of enucleation and ablation working from the apex toward the bladder neck. A similar procedure was repeated on the patient's right-hand side. The only differences being the position of the lateral groove at he 7 'oclock positioin a nd the secondary groove at the 11 o'clock position, Otherwise the procedure was developed in a mirror fashion. After the majority of tissue had been debulked remnant tissue was ablated with the side fire laser and the curve of the prostate followed up each side wall clearly defining the anterior remnant strip that remained between the 11 and 1 o'clock positions. In this case the anterior tissue protruded into the prostatic fossa and was partially ablated with the laser When this was had been completed debris and pieces of prostate were removed from the bladder with irrigation. Both ureteric orifices were reviewed again in shown to be patent in away from any areas of energy damage. The apical area was reviewed in any stray ooze was controlled. Using a grasper the stent emerging from the right ureteric orifice was grasped and removed without difficulty. A 22 Japanese 30 cc balloon Stein catheter was placed over a stylet into the bladder. Clear efflux was obtained upon irrigation with a Katarzyna piston syringe. 30 cc was placed in the balloon and gentle traction was placed. A snap was used to hold tension on the catheter to control bleeding during patient moved and transported. A drainage bag was placed. Once transportation is complete to the PACU the snap will be removed. The patient tolerated the procedure well, he was extubated in the operating and transferred in a stable condition to the recovery area. Total Power 158 kW Lasing time 24:59 Pathology: Prostate tissue Drains: Stein catheter
[2023-07-24 10:19] VITALS: BP 158/102; PULSE 80; RESP 16; TEMP 36.2; O2SAT 99
[2023-07-24 10:24] VITALS: BP 145/88; PULSE 75; RESP 18; O2SAT 97
[2023-07-24 10:32] VITALS: BP 141/85; PULSE 76; RESP 18; O2SAT 94
[2023-07-24 10:36] VITALS: BP 149/93; PULSE 72; RESP 18; O2SAT 94
[2023-07-24 10:51] VITALS: BP 148/79; PULSE 74; RESP 18; TEMP 36.2; O2SAT 99
--- NOTE | 2023-07-24 14:57 | HO.POSTANES ---
Post Anesthesia Evaluation Post Anesthesia Evaluation Date of Service: 07/24/23 Vital Signs: Vital Signs Temp Pulse Resp BP Pulse Ox O2 Del Method 07/24/23 10:51 97.2 F 74 18 148/79 H 99 07/24/23 10:36 72 18 149/93 H 94 Room Air 07/24/23 10:32 76 18 141/85 H 94 07/24/23 10:24 75 18 145/88 H 97 07/24/23 10:19 97.2 F 80 16 158/102 H 99 Room Air 07/24/23 07:51 96.9 F 84 18 170/98 H 98 Room Air Anesthesia: General LMA Mental Status: Awake Pain Control: Satisfactory Nausea/Vomiting: None Hydration: Adequate Anesthesia-Related Issues: No Anes. Related Issues
== END 2023-07-24 11:34 | disposition home or self-care (01) ==
PROVIDERS: Nurse Practitioner; PCP Physician Assistant; Visit Provider Urology
PROC: (CPT 52648; principal; 2023-07-24 09:00)
DX: N32.0 Bladder-neck obstruction (principal); Z96.0 Presence of urogenital implants; R39.14 Feeling of incomplete bladder emptying; R33.9 Retention of urine, unspecified; N13.30 Unspecified hydronephrosis; N47.2 Paraphimosis; Z87.442 Personal history of urinary calculi; I69.320 Aphasia following cerebral infarction; I45.10 Unspecified right bundle-branch block; I42.9 Cardiomyopathy, unspecified; I48.91 Unspecified atrial fibrillation; Z79.899 Other long term (current) drug therapy; Z88.1 Allergy status to other antibiotic agents; F17.210 Nicotine dependence, cigarettes, uncomplicated; Z56.0 Unemployment, unspecified
CPT/HCPCS: 52649; 36415; 80048; 85027; 88305; J1100; J1956; J2250; J2405; J2704; J3010

== ENCOUNTER → 2023-07-24 06:56 | Outpatient (BNV) | payer MEDICARE, SELFPAY | PROVIDERS: PCP Physician Assistant; Visit Provider Urology | DX: N32.0 Bladder-neck obstruction (principal); Z96.0 Presence of urogenital implants | CPT/HCPCS: 52649 ==

== ENCOUNTER → 2023-07-27 09:23 | Outpatient (BNVA) | payer MEDICARE, SELFPAY | PROVIDERS: PCP Physician Assistant; Visit Provider Urology | DX: N13.30 Unspecified hydronephrosis (principal); N32.0 Bladder-neck obstruction; R31.9 Hematuria, unspecified | CPT/HCPCS: 51700; 51798 ==

== ENCOUNTER 2023-09-19 09:09 | Outpatient (AMB) | payer MEDICARE, SELFPAY ==
[2023-09-19 09:11] VITALS: BP 182/82; PULSE 68; BMI 20.9
--- NOTE | 2023-09-19 09:11 | MHC.OFFVIS ---
Vital Signs 09/19/23 09:11 Height 5 ft 8 in Weight 137 lb 9.095 oz BMI 20.9 BP 182/82 H Blood Pressure Location Lt brachial Position Sitting Pulse 68 Pulse Source Auscultation Intake Visit Reasons: 2m/stress test/echo Lead Neurodiagnostic Technologist: Lead Neurodiagnostic Technologist Present Allergies No Known Allergies Allergy (Verified 09/19/23 09:14) Medication List - Last Reconciled 09/19/23 by LILLIE Lin atorvastatin 40 mg PO BEDTIME blood pressure test kit-medium As directed carvedilol 25 mg PO BID ferrous sulfate 325 mg PO DAILY 30 days finasteride 5 mg PO DAILY 90 days hydrocortisone 1% (Cortisone (hydrocortisone)) 1 appl topical BID PRN 15 days mirtazapine 15 mg PO BEDTIME 30 days nicotine (polacrilex) (Nicorette) 2 mg buccal Q2-4H PRN sulfamethoxazole-trimethoprim 400-80 mg (Bactrim) 1 tab PO DAILY tamsulosin 0.4 mg PO DAILY HPI HPI 2m/stress test/echo: Details: Gui is a 78 yo male with PMH of HTN, chronic afib, right bundle branch block, nonischemic CMP, CVA, hematuria with anticoagulation use, TURP on 07/24/2023, who presents for follow-up. Today he reports that he has been doing well since his last visit in July. Has not had any recurrent hematuria since his TURP. He does have expressive aphasia from a prior CVA. No new neurological symptoms. He denies any chest discomfort, shortness of breath, heart palpitations. No lightheadedness, presyncope, syncope, falling. He is mostly sedentary. He walks slowly and only short distances. He has full mobility of his arms and legs. He says he takes his meds as directed and manages them himself. He continues to drive. His niece is present and she is assisting with Swiss translation at their request. Permit signed. 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 Mother Cancer Sister Cancer Other Mental health disorder Social History Household Members: None Housing: Apartment Do you presently have visiting nurse or other home services: No Alcohol intake: unknown Patient Tobacco Use Status: Never used Tobacco Tobacco use type: Cigarette e-Cigarette/Vaping Use: Never Used service: No Current occupational status: unemployed and disabled Cognitive needs: No Hearing needs: No Vision needs: No Review of Systems Const All systems reviewed & are unremarkable except as noted in HPI and below ENT Denies dizziness Card Denies chest pain, Denies chest pain at rest, Denies chest pain with activity, Denies rapid heart rate, Denies pedal edema, Denies edema, Denies leg edema, Denies lightheadedness, Denies palpitations, Denies dyspnea, Denies dyspnea on exertion and Denies orthopnea Resp Denies cough, Denies dyspnea and Denies dyspnea on exertion GI Denies hematochezia and Denies change in stool character Musc Denies abnormal gait, Denies limited range of motion, Denies muscle cramps, Denies muscle weakness, Denies numbness, Denies radiating pain into limb, Denies stiffness and Denies tingling Neuro Denies abnormal gait, Denies dizziness, Denies numbness and Denies tingling Endo Denies palpitations Physical Exam Vital Signs: BMI result Body Mass Index 20.9 Const General: cooperative, healthy appearing, comfortable and no acute distress Orientation/consciousness: patient oriented x3 Neck Neck: Yes normal visual inspection and Yes no JVD Resp Effort & Inspection: normal respiratory effort Auscultation: clear to auscultation bilaterally, no rales, no rhonchi and no wheezes Cardio Jugular venous distension: no JVD Rate: regular rate Rhythm: regular rhythm Heart sounds: S1 normal heart sound present, S2 normal heart sound present, no murmurs and no rubs Neuro General: patient oriented x3 Extrem General: Yes normal to inspection, No no pedal edema and No calf tenderness Psych Appearance: grossly normal Mental Status: mental status grossly normal Speech and movement: Normal speech and movement present Assessment & Plan Assessment & Plan (1) Cardiomyopathy: Code(s): I42.9 - Cardiomyopathy, unspecified Category: Medical Qualifiers: Cardiomyopathy type: unspecified Qualified Code(s): I42.9 - Cardiomyopathy, unspecified Plan: History of cardiomyopathy, likely nonischemic.. Echo done 11/06/19 shows EF 35-40%. Nuclear stress test done 02/18/2020 showing likely normal myocardial perfusion imaging with no evidence of infarct or ischemia, EF 32%. He had been on appropriate medical management with carvedilol, lisinopril. He was not seen in our office between 06/30/21 and 07/07/23. In between that time he developed BECKY/CKD and lisinopril was stopped. Is currently only on carvedilol for neurohormonal modulation. Repeat cardiac testing was done due to the need for urological surgery. Echo done 07/17/23 shows EF 45-50%, mild LVH, moderately reduced RV systolic function, severe left atrial and moderate right atrial enlargement, early mild , mild AR, [id number] mitral and tricuspid regurgitation, ascending aorta 3.7 cm, small pericardial effusion your right-sided chambers. LV systolic function has improved some since 08/09/2022. Pharmacological nuclear stress test done on 07/19/23 shows basal inferolateral infarct. No evidence of ischemia. Labs done 07/24/23 shows Cr 1.95. On examination today he does not appear fluid overloaded. He admits to being mostly sedentary. His BP is elevated today. Unable to use Vipul/ arb. Will start on Hydralazine 10mg bid and plan for BP check in 2 weeks. Will likely need to futher titrate dose. Continue carvedilol. Signs and symptoms of heart failure reviewed. Cardiology office visit in 6 months, sooner if needed. (2) RBBB: Code(s): I45.10 - Unspecified right bundle-branch block Category: Medical Plan: Present on last EKG, also finding of left posterior fascicular block, T-wave abnormality V5 and V6, different from prior EKG. Nuclear stress test as above with finding of a fixed basal inferior lateral perfusion defect suggesting infarct. No reversible defects. He has no anginal symptoms. He is somewhat frail. Will continue with medical management for CAD. He is not on aspirin but will be starting anticoagulation. He is on atorvastatin with ideal LDL goal less than 70. Labs done on 08/08/2022 showed LDL 69. He is on carvedilol. Signs and symptoms of angina reviewed. Will further discuss with his primary cellular equipment installer. (3) Afib: Code(s): I48.91 - Unspecified atrial fibrillation Category: Medical Qualifiers: Atrial fibrillation type: persistent (not longstanding) Qualified Code(s): I48.19 - Other persistent atrial fibrillation Plan: Hx of chronic Afib. Holter monitor done on 07/09/2021 for 3 days shows atrial fibrillation with average heart rate 78 beats per minute, longest pause 2.78 seconds, occasional PVCs, 115 beat wide complex rhythm suggesting aberrant conduction. He has been on carvedilol for heart rate control. He had been on Xarelto for anticoagulation at the time of last visit. He did start with expressive aphasia on 08/05/2022. It seems he was not taking his anticoagulation at that time for unclear reason. During his hospitalization he was started on Xarelto and had hematuria. As of last visit he was being treated by Urology and underwent a TURP on 07/24/2023. He denies having issues with hematuria since that time. He continues to have a high Chads Vasc score of 6. He has no new neurological changes since last visit. I will restart him on anticoagulation at this time. Will start Eliquis 2.5 mg b.i.d. which is the appropriate dose for his age, weight and creatinine. Dr. Rivera informed. High stroke risk reviewed with patient. Emergency care if needed for any new neurological changes. EKG done last visit showing atrial fibrillation, rate 74. Will continue to treat AFib with heart rate control. (4) HTN (hypertension): Code(s): I10 - Essential (primary) hypertension Category: Medical Qualifiers: Hypertension type: primary hypertension Qualified Code(s): I10 - Essential (primary) hypertension Plan: Blood pressure elevated today 182/82, recheck done by me later in the visit was 172/88. Prior blood pressures reviewed and he tends to run elevated. He is on carvedilol. Will add hydralazine. Office blood pressure check in 2 weeks. If blood pressure is still elevated then will plan to further titrate hydralazine dose. Plan Time spent on chart review, documentation, interview and assessment Medications: New apixaban (Eliquis) 2.5 mg PO BID 60 tabs 5RF hydralazine New BP medication 10 mg PO BID 60 tabs 2RF Coding Level of Care Code Est Pt Level 4 (50554) Diagnoses Cardiomyopathy, unspecified type I42.9 Cardiomyopathy type: unspecified RBBB I45.10 Persistent atrial fibrillation I48.19 Atrial fibrillation type: persistent (not longstanding) Primary hypertension I10 Hypertension type: primary hypertension Time Spent (min) 30
== END 2023-09-19 09:40 | disposition home or self-care (01) ==
PROVIDERS: PCP Physician Assistant; Visit Provider Nurse Practitioner Family
DX: I42.9 Cardiomyopathy, unspecified (principal); I45.10 Unspecified right bundle-branch block; I48.19 Other persistent atrial fibrillation; I10 Essential (primary) hypertension
CPT/HCPCS: 99214

== ENCOUNTER → 2023-09-19 09:09 | Outpatient (BNVA) | payer MEDICARE, SELFPAY | PROVIDERS: PCP Physician Assistant; Visit Provider Nurse Practitioner Family | DX: I48.20 Chronic atrial fibrillation, unspecified (principal); I10 Essential (primary) hypertension; I42.9 Cardiomyopathy, unspecified; I45.10 Unspecified right bundle-branch block; Z86.73 Personal history of transient ischemic attack (TIA), and cerebral infarction without residual deficits; Z79.01 Long term (current) use of anticoagulants | CPT/HCPCS: 99212 ==

== ENCOUNTER 2023-10-04 08:08 | Outpatient (REF) | payer MEDICARE, SELFPAY ==
[2023-10-04 08:19] LABS: MANUAL DIFF FLAG NO
[2023-10-04 09:19] LABS: Basophils Percent Auto 0.4 % (0-2); Eosinophils Absolute Auto 0.1 X10*3/uL (0.0-0.4); Eosinophils Percent Auto 1.9 % (0-4); Hematocrit 40.3 % (42.0-52.0); Imm Gran Abs Auto 0.03 X10*3/uL (0.00-0.03); Imm Gran Pct Auto 0.4 % (0.0-0.4); Lymphocytes Absolute Auto 1.2 X10*3/uL (1.2-4.9); Lymphocytes Percent Auto 16.3 % (20-40); Mean Corpuscular HGB Conc 32.3 g/dl (31.0-36.0); Mean Corpuscular Hemoglobin 28.5 pg (27.0-33.0); Mean Corpuscular Volume 88.4 fL (80.0-98.0); Mean Platelet Volume 10.7 fL (9.4-12.4); Monocytes Absolute Auto 0.6 X10*3/uL (0.1-1.2); Neutrophils Absolute Auto 5.3 x10*3/uL (2.0-8.3); Platelet Count 192 X10*3/uL (160-400); Red Blood Count 4.56 X10*6/uL (4.60-5.80); Red Cell Distribution Width 14.6 % (11.0-16.0); White Blood Count 7.2 X10*3/uL (4.8-10.8)
[2023-10-04 09:47] LABS: Alanine Aminotransferase 10 U/L (0-40); Albumin Level 4.2 g/dL (3.5-5.0); Alkaline Phosphatase 82 U/L (39-117); Anion Gap 12 (12-20); Aspartate Amino Transferase 14 U/L (5-37); Bilirubin Total 0.9 mg/dL (0.0-1.0); Blood Urea Nitrogen 24 mg/dL (9-16); Calcium 9.2 mg/dL (8.4-10.2); Carbon Dioxide 27 mmol/L (22-29); Chloride 105 mmol/L (96-108); Estimated Glomerular Filt Rate 39; Glucose Random 98 mg/dL (60-115); Potassium 4.1 mmol/L (3.3-5.1); Sodium 140 mmol/L (135-145); Total Protein 7.2 g/dL (6.5-8.0)
== END 2023-10-04 08:09 | disposition home or self-care (01) ==
LOC: HO.LAB 08:08
PROVIDERS: PCP Physician Assistant; Visit Provider Nurse Practitioner Family
DX: I10 Essential (primary) hypertension (principal); I42.9 Cardiomyopathy, unspecified
CPT/HCPCS: 36415; 80053; 85025

== ENCOUNTER → 2023-10-06 09:46 | Outpatient (BNVA) | payer MEDICARE, SELFPAY | PROVIDERS: PCP Physician Assistant; Visit Provider Nurse Practitioner Family ==

== ENCOUNTER → 2023-10-26 10:02 | Outpatient (BNVA) | payer MEDICARE, SELFPAY | PROVIDERS: PCP Physician Assistant; Visit Provider Nurse Practitioner Family ==

== ENCOUNTER 2024-06-18 09:10 | Outpatient (AMB) | payer MEDICARE, SELFPAY ==
[2024-06-18 09:13] VITALS: BP 140/72; PULSE 81; BMI 20.8
--- NOTE | 2024-06-18 09:13 | A.OFFVIS_ITS ---
Vital Signs 06/18/24 09:13 Height 5 ft 8 in Weight 137 lb 2.04 oz BMI 20.8 BP 140/72 H Blood Pressure Location Lt brachial Position Sitting Pulse 81 Pulse Source Monitor Intake Visit Reasons: overdue followup Medical Reception Specialist Required: No Medical Reception Specialist Name: voice bermudez [phone] Allergies No Known Allergies Allergy (Verified 06/18/24 09:16) Medication List - Last Reconciled 06/18/24 by Madeleine Hernandez NP-C apixaban (Eliquis) 2.5 mg PO BID atorvastatin 40 mg PO BEDTIME blood pressure test kit-medium As directed carvedilol 25 mg PO BID ferrous sulfate 325 mg PO DAILY 30 days finasteride 5 mg PO DAILY 90 days hydralazine 10 mg PO BID hydrocortisone 1% (Cortisone (hydrocortisone)) 1 appl topical BID PRN 15 days mirtazapine 15 mg PO BEDTIME 30 days tamsulosin 0.4 mg PO DAILY HPI HPI overdue followup: Details: Gui is a 79-year-old male presenting with a follow-up for chronic cardiac conditions. He has a significant cardiovascular history, including hypertension, chronic atrial fibrillation, right bundle branch block, non-ischemic cardiomyopathy, and cerebrovascular accident. Since his last evaluation, the patient has been generally well without hospitalizations or emergency visits. He denies recurrent issues with hematuria. He is vague when asked about chest discomfort and reports it occurs sometimes . He denies issues with shortness of breath but is asking about a prescription for a pump . No heart palpitations, lightheadedness or leg edema. He admits to only light activity and goes for walks occassionally. He currently adheres to a regimen of anticoagulation with apixaban (Eliquis) for atrial fibrillation, paired with daily administration of carvedilol. The patient's most recent echocardiogram indicated a positive trajectory in cardiac function, with prior stress testing alluding to an earlier myocardial event, yet heralding no present alarming symptoms. The risk of stroke persists due to atrial fibrillation, reinforcing the necessity of his current therapy. Dietary adjustments to reduce salt intake are emphasized to control hypertension and avert fluid accumulation. 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 Mother Cancer Sister Cancer Other Mental health disorder Social History Household Members: None Housing: Apartment Do you presently have visiting nurse or other home services: No Alcohol intake: unknown Patient Tobacco Use Status: Never used Tobacco Tobacco use type: Cigarette e-Cigarette/Vaping Use: Never Used service: No Current occupational status: unemployed and disabled Cognitive needs: No Hearing needs: No Vision needs: No Review of Systems Const All systems reviewed & are unremarkable except as noted in HPI and below ENT Denies dizziness Card Denies chest pain, Denies chest pain at rest, Denies chest pain with activity, Denies rapid heart rate, Denies pedal edema, Denies edema, Denies leg edema, Denies lightheadedness, Denies palpitations, Reports dyspnea, Denies dyspnea on exertion and Denies orthopnea Resp Denies cough, Reports dyspnea and Denies dyspnea on exertion GI Denies hematochezia and Denies change in stool character Musc Denies abnormal gait, Denies limited range of motion, Denies muscle cramps, Denies muscle weakness, Denies numbness, Denies radiating pain into limb, Denies stiffness and Denies tingling Neuro Denies abnormal gait, Denies dizziness, Denies numbness and Denies tingling Endo Denies palpitations Physical Exam Vital Signs: Last Vital Signs Pulse 81 06/18/24 09:13 BP 140/72 H 06/18/24 09:13 BMI result Body Mass Index 20.8 Const General: cooperative, healthy appearing, comfortable and no acute distress Orientation/consciousness: patient oriented x3 Neck Neck: Yes normal visual inspection and Yes no JVD Resp Effort & Inspection: normal respiratory effort Auscultation: clear to auscultation bilaterally, no rales, no rhonchi and no whe ezes Cardio Jugular venous distension: no JVD Rate: regular rate Rhythm: regular rhythm Heart sounds: S1 normal heart sound present, S2 normal heart sound present, no murmurs and no rubs Neuro General: patient oriented x3 Extrem General: Yes normal to inspection, No no pedal edema and No calf tenderness Psych Appearance: grossly normal Mental Status: mental status grossly normal Speech and movement: Normal speech and movement present Office Procedures EKG Details: Today, read by me, atrial fibrillation, right bundle branch block, left anterior fascicular block, T-wave abnormality inferior lateral leads rate 81, QTC 492 millisecond [id number], Complete Results Reviewed Results Reviewed: - Echocardiogram (07/17/23): ShowedEF 45-50%, mild LVH, moderately reduced RV systolic function, severe left and right atrial enlargement, mild , mild AR, Mild to mod MR and TR, small pericardial effusion near right sided chambers. - Nuclear Stress Test (07/19/23) basal inferolateral infarct, no ischemia Assessment & Plan Assessment & Plan (1) Afib: Code(s): I48.91 - Unspecified atrial fibrillation Category: Medical Qualifiers: Atrial fibrillation type: persistent (not longstanding) Qualified Code(s): I48.19 - Other persistent atrial fibrillation Plan: Chronic. Treated with rate control using Carvedilol. On low dose Eliquis for anticoagulation. (2) Cardiomyopathy: Code(s): I42.9 - Cardiomyopathy, unspecified Category: Medical Qualifiers: Cardiomyopathy type: unspecified Qualified Code(s): I42.9 - Cardiomyopathy, unspecified Plan: Nonischemic, EF 45-50%. On Carvedilol for neurohormonal modulation. Not on ollie/ arb due to CKD (3) Bifascicular block: Code(s): I45.2 - Bifascicular block Category: Medical Plan: Noted on EKG, not new (4) HTN (hypertension): Code(s): I10 - Essential (primary) hypertension Category: Medical Qualifiers: Hypertension type: primary hypertension Qualified Code(s): I10 - Essential (primary) hypertension Plan: Goal < 130/80, near goal. Plan The patient will continue on apixaban daily due to elevated stroke risk secondary to atrial fibrillation, with additional emphasis placed on medication adherence. Lifestyle improvements include salt restriction to control hypertension and avoid fluid overload complications. Increasing physical activity as able for cardiovascular benefits while keeping evaluations for chest discomfort. Comprehensive tracking of the patient?s cardiac status will persist, noting established improvements in heart function. A follow-up is scheduled for six months unless concerning developments necessitate earlier assessment. Discussion: I reviewed with the patient his cardiac conditions and management strategy emphasizing continued apixaban use to reduce the risk of cerebrovascular incidents, attributable to atrial fibrillation. Discussion encompassed the risks of atrial fibrillation, associated myocardial infarction, and the value of salt- reduced dietary measures. The benefits of carvedilol in managing blood pressure and heart rate were reiterated, alongside maintaining active engagement comprising of walking. The patient acknowledged understanding the importance of monitoring for symptoms indicative of potential exacerbations. Follow-up is arranged for six months, with encouragement given to communicate any symptomatic changes promptly. Patient Instructions: - Continue apixaban and carvedilol as prescribed. - Monitor for increased chest pain or breathlessness, and seek medical care if these occur. - Adhere to a low-salt diet to control blood pressure and prevent fluid retention. - Engage in regular walking for exercise, but pace to avoid chest discomfort. - Schedule a follow-up appointment in six months, but contact the clinic sooner if new symptoms emerge Coding Level of Care Code Est Pt Level 4 (97160) Complex EM visit Add On G2211 Diagnoses Persistent atrial fibrillation I48.19 Atrial fibrillation type: persistent (not longstanding) Cardiomyopathy, unspecified type I42.9 Cardiomyopathy type: unspecified Bifascicular block I45.2 Primary hypertension I10 Hypertension type: primary hypertension CPT Codes EKG - CPT: 51523-[id number], Complete ([id number]) Time Spent (min) 30
--- OUTSIDE RECORDS SUMMARY | 2024-06-18 09:50 | XMS_ITS | Clinical Summary ---
Author Organization [facility] Facility Address [address] [place] [address] Care Team Providers Care Market Intelligence Consultant Name Role Phone Unavailable Primary Care Provider Unavailabl e Social History Tobacco Use Types Packs/Day Years Used Date Smoking Tobacco: Never Assessed Sex and Gender Information Value Date Recorded Sex Assigned at Not on file Legal Sex Male 8:01 AM EDT Gender Identity Not on file Sexual Orientation Not on file Plan of Treatment Health Maintenance Due Date Last Done Comments Pneumococcal Vaccine: 50+ Ye ars (1 of - PCV) 2011 Influenza Vaccine (Season Ended) 2024 Hepatitis B Vaccine Aged Out No longe r eligible based on patient's age to complete this topic Insurance Medicare Medicaid [place]
== END 2024-06-18 10:16 | disposition home or self-care (01) ==
PROVIDERS: PCP Physician Assistant; Visit Provider Nurse Practitioner Family
DX: I48.19 Other persistent atrial fibrillation (principal); I42.9 Cardiomyopathy, unspecified; I45.2 Bifascicular block; I10 Essential (primary) hypertension
CPT/HCPCS: 93010; 99214; G2211

== ENCOUNTER → 2024-06-18 09:10 | Outpatient (BNVA) | payer MEDICARE, SELFPAY | PROVIDERS: PCP Physician Assistant; Visit Provider Nurse Practitioner Family | DX: I48.19 Other persistent atrial fibrillation (principal); I42.9 Cardiomyopathy, unspecified; I45.2 Bifascicular block; I10 Essential (primary) hypertension; R94.31 Abnormal electrocardiogram [ECG] [EKG] | CPT/HCPCS: 93005; 99212 ==

== ENCOUNTER 2024-07-31 10:46 | Outpatient (AMB) | payer MEDICARE, SELFPAY ==
[2024-07-31 11:09] VITALS: BP 164/100; PULSE 92; TEMP 36.3; O2SAT 97; BMI 20.3
--- NOTE | 2024-07-31 11:09 | MHC.PC.OV ---
Vital Signs 07/31/24 11:09 07/31/24 11:32 Height 5 ft 8 in Weight 133 lb 6 oz BMI 20.3 BP 164/100 H 160/90 H Blood Pressure Location Lt brachial Position Sitting Pulse 92 Pulse Source Pulse Oximeter Temp 97.3 F Temp Source Temporal Artery Scan Pulse Oximetry (%) 97 Oxygen Delivery Method Room Air Intake Visit Reasons: Request Check-up Analytics Specialist Required: No Accompanied by: Self / Same As Patient Allergies No Known Allergies Allergy (Verified 07/31/24 11:19) Medication List - Last Reconciled 07/31/24 by Edin Francis PA-C apixaban (Eliquis) 2.5 mg PO BID atorvastatin 40 mg PO BEDTIME blood pressure test kit-medium As directed carvedilol 25 mg PO BID ferrous sulfate 325 mg PO DAILY 30 days finasteride 5 mg PO DAILY 90 days hydralazine 10 mg PO BID hydrocortisone 1% (Cortisone (hydrocortisone)) 1 appl topical BID PRN 15 days mirtazapine 15 mg PO BEDTIME 30 days tamsulosin 0.4 mg PO DAILY Tobacco use date assessed: 07/31/24 Fall risk assessment: No Falls in past year Last assessed Fall Risk: 07/31/24 Dental Screening Dental Screen Date: 07/31/24 Did you have a dental visit in the last 12 months?: Yes Did you have a dental problem in the last 6 months where you did not have access to dental care?: No Was dental information given to patient?: Patient has dentist HPI Request Check-up HPI Details Patient is a 79-year-old male here today for follow-up visit. Patient has a past medical history significant for AFib, CVA, CKD-3, hypertension, tobacco dependency. Concern--> he reports feeling a bit itchy all over particularly at night before he goes to bed. He has not tried any antihistamines at this time. He is open to the idea of trying a cream on the most itchy has areas of his skin. .. CKD: Most recent renal functions indicating a low GFR , he is on renally dosed Eliquis at this time. Will continue to follow renal function and avoid any nephrotoxins. .. AFib: Patient continues on carvedilol and renally dosed Eliquis. Continues to follow [facility]. .. Hypertension: Blood pressure today in office elevated and he reports he is compliant with using carvedilol and hydralazine twice a day. 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 Mother Cancer Sister Cancer Other Mental health disorder Social History Household Members: None Housing: Apartment Do you presently have visiting nurse or other home services: No Alcohol intake: unknown Patient Tobacco Use Status: Never used Tobacco Tobacco use type: Cigarette e-Cigarette/Vaping Use: Never Used service: No Current occupational status: unemployed and disabled Cognitive needs: No Hearing needs: No Vision needs: No Questionnaire PHQ-9 Over the last 2 weeks, how often have you been bothered by any of the following problems? 1. Little interest or pleasure in doing things: not at all 2. Feeling down, depressed, or hopeless: not at all 3. Trouble falling or staying asleep, or sleeping too much: several days 4. Feeling tired or having little energy: several days 5. Poor appetite or overeating: several days 6. Feeling bad about yourself - or that you are a failure or have let yourself or your family down: not at all 7. Trouble concentrating on things, such as reading the newspaper or watching television: not at all 8. Moving or speaking so slowly that other people could have noticed. Or the opposite - being so fidgety or restless that you have been moving around a lot more than usual: not at all 9. Thoughts that you would be better off or of hurting yourself in some way: not at all Total score: 3 Depression Screening Interpretation: Positive Depression Screening Follow-up: Existing condition Depression Screening Done: Yes 43610 - PHQ-9 Billing: Yes Source: Developed by Drs. Tuan Estrella, Bartolo Pandya and colleagues, with an educational anabel from [employer]. Thrive Questionnaire Date Thrive assessed: 07/31/24 I am a: Patient What is your living situation today?: I have a steady place to live Within the past 12 months, did the food you bought not last and you didn't have the money to get more?: Never true Within the past 12 months, did you worry whether your food would run out before you got money to buy more?: Never true Do you have trouble paying for medicines?: No Do you have trouble getting transportation to medical appointments?: No Do you have trouble paying your heating and electricity bill?: No Do you have trouble taking care of your child, family member or friend?: No Do you have trouble with day-to-day activities such as bathing, preparing meals, shopping, managing finances, etc.?: No Are you currently unemployed and looking for a job?: Yes Are you interested in more education?: No Please select the resources that you would like help with: None Currently or been in a relationship where the following occur: No concerns reported THRIVE Score: 0 AUDIT C Alcohol Use Questionnaire (AUDIT-C) 1. How often do you have a drink containing alcohol?: Never 3. How often do you have six or more drinks on one occasion?: Never Total Score: 0 CHELA-7 AMB Questionnaire CHELA-7 Date CHELA - 7 assessed: 07/31/24 Feeling nervous, anxious, or on edge: 0 = Not at all Not being able to stop or control worryin = Not at all Worrying too much about different things: 0 = Not at all Trouble relaxin = Not at all Being so restless that it is hard to sit still: 0 = Not at all Becoming easily annoyed or irritable: 0 = Not at all Feeling afraid as if something awful might happen: 0 = Not at all Total CHELA-7 score (0-4 normal; 5-9 mild; 10-14 moderate; 15-21 severe): 0 Source: Developed by Cassy Gibbs Kurt Kroenke and colleagues, with an educational anabel from [employer]. CHELA-7 Assessment Billing CHELA-7 Assessment Tool: CHELA-7 Assessment 41794 Review of Systems Const Denies headache(s) Eyes Denies loss of vision ENT Denies vertigo, Denies dizziness, Denies headache(s) and Denies sore throat Card Denies chest pain, Denies leg edema and Denies lightheadedness Resp Denies cough, Denies hemoptysis and Denies wheezing GI Denies abdominal pain, Denies melena, Denies constipation, Denies diarrhea and Denies vomiting Denies dysuria, Denies urinary frequency and Denies urinary urgency Musc Denies arthralgias, Denies joint swelling, Denies numbness and Denies tingling Neuro Denies Abnormal speech present, Denies behavioral changes, Denies vertigo, Denies dizziness, Denies headache(s), Denies loss of vision, Denies memory loss, Denies numbness and Denies tingling Psych Denies anxiety, Denies behavioral changes, Denies depression, Denies memory loss and Denies panic attacks Garfield/Lymph Denies easy bleeding and Denies easy bruising Aller/Immun Denies wheezing Physical exam (Primary Care) Vital Signs: Last Vital Signs Temp 97.3 F 07/31/24 11:09 Pulse 92 07/31/24 11:09 BP 164/100 H 07/31/24 11:09 Pulse Ox 97 07/31/24 11:09 Oxygen Delivery Method Room Air 07/31/24 11:09 BMI result Body Mass Index 20.3 Tobacco/Smoking Status: Tobacco use Status Tobacco use date assessed 07/31/24 07/31/24 11:14 Patient Tobacco Use Status Never used Tobacco 07/31/24 11:14 Tobacco use type Cigarette 07/31/24 11:14 e-Cigarette/Vaping Use Never Used 07/31/24 11:14 PHQ-9: PHQ-9 Score PHQ-9: Total score 3 07/31/24 11:14 Depression Screening Interpretation: Positive Depression Screening Follow-up: Existing condition Thrive Assessment: Date of Thrive Assessment Date Thrive assessed 07/31/24 07/31/24 11:14 Currently or been in a relationship where the following occur: No concerns reported Const General: healthy appearing, no acute distress, alert and awake Nutritional Appearance: well nourished Orientation/consciousness: oriented to person, oriented to place and oriented to time HENUT Ears: TM's normal bilaterally General nose exam: Normal nasal mucous membranes and turbinates present Eyes Conjunctivae: conjunctivae normal Sclerae: sclerae normal Pupils: Equal, round and reactive pupils present Neck Neck: Yes no lymphadenopathy and Yes no JVD Thyroid: Thyroid normal Carotids: no bruits Resp Effort & Inspection: normal respiratory effort and not tachypneic Auscultation: no crackles, no rales, no rhonchi and no wheezes Cardio Rate: regular rate Rhythm: regular rhythm Heart sounds: no murmurs and normal S1 and S2 GI Palpation (GI): Soft to palpation, nontender, no hepatomegaly and no splenomegaly Auscultation: normal bowel sounds Skin General skin exam: no rashes or lesions noted and dry skin Neuro General: oriented to person, oriented to place and oriented to time Cranial nerves: Yes Equal, round and reactive pupils present Speech: No Abnormal speech present Gait exam (Neuro): Normal gait present Motor exam (neuro): no tremor noted Extrem Right upper extremity: full ROM Left upper extremity: full ROM Right lower extremity: full ROM; no edema Left lower extremity: full ROM; no edema Psych Mental Status: mental status grossly normal Speech and movement: Normal speech and movement present Affect: normal affect Attitude: cooperative Thought process: Normal thought process present Coding Level of Care Code Est Pt Level 4 (49605) Diagnoses Persistent atrial fibrillation I48.19 Atrial fibrillation type: persistent (not longstanding) Primary hypertension I10 Hypertension type: primary hypertension Generalized pruritus L29.9 Stage 3 chronic kidney disease, unspecified whether stage 3a or 3b CKD N18.30 Chronic kidney disease stage 3 subtype: unspecified whether 3a or 3b Additional Codes CHELA-7 Assessment Billing - CHELA-7 Assessment Tool: CHELA-7 Assessment 62470 ([id number]) PHQ-9 - 57379 - PHQ-9 Billing: Yes ([id number]) Assessment & Plan Assessment & Plan (1) Afib: Code(s): I48.91 - Unspecified atrial fibrillation Category: Medical Qualifiers: Atrial fibrillation type: persistent (not longstanding) Qualified Code(s): I48.19 - Other persistent atrial fibrillation Plan: Patient followed by Cardiology here in [place]. He continues on renally dosed Eliquis and carvedilol for rate control. Still appears to be in AFib here in office. He denies any chest discomfort, dizziness or syncopal episodes. (2) HTN (hypertension): Code(s): I10 - Essential (primary) hypertension Category: Medical Qualifiers: Hypertension type: primary hypertension Qualified Code(s): I10 - Essential (primary) hypertension Plan: Patient's blood pressure elevated today in office. Will add on lisinopril 10 mg for better blood pressure control. Offered patient paper Rx for blood pressure cuff kit to do home blood pressure monitoring though he declines at this time. Goal blood pressures to be below 140/90 (3) Generalized pruritus: Code(s): L29.9 - Pruritus, unspecified Category: Medical Plan: As per HPI patient does report feeling very itchy particularly at night. Will supply patient with a triamcinolone lotion to use on it she is here as of his skin. Did advise on trying an antihistamine (4) CKD (chronic kidney disease) stage 3, GFR 30-59 ml/min: Code(s): N18.30 - Chronic kidney disease, stage 3 unspecified Category: Medical Qualifiers: Chronic kidney disease stage 3 subtype: unspecified whether 3a or 3b Qualified Code(s): N18.30 - Chronic kidney disease, stage 3 unspecified Plan: Patient's renal function indicates chronic kidney disease, will try to avoid any nephrotoxins Orders: Orders Complete Blood Count no Diff Today I48.19 - Other persistent atrial fibrillation Microalbumin, Random (w Creat) Today I10 - Essential (primary) hypertension Comprehensive [place]. Panel Fast Today I10 - Essential (primary) hypertension Prostate Specific Antigen Scr Today I10 - Essential (primary) hypertension, Z12.5 - Encounter for screening for malignant neoplasm of prostate Medications: New triamcinolone acetonide 0.025% 1 appl topical DAILY 30 days 60 mL 1RF L29.9 - Pruritus, unspecified lisinopril 10 mg PO DAILY 90 days 90 tabs 1RF I10 - Essential (primary) hypertension
[2024-07-31 11:32] VITALS: BP 160/90
--- OUTSIDE RECORDS SUMMARY | 2024-07-31 11:49 | XMS_ITS | Clinical Summary ---
Author Organization [facility] Facility Address [address] [place] [address] Care Team Providers Care Internet Retailer Name Role Phone Unavailable Primary Care Provider [...] 50+ Ye ars (1 of - PCV) 02/24/1996 Influenza Vaccine (Season Ended) 2024 Hepatitis B Vaccine Aged Out No longe r eligible based on patient's age to complete this topic Insurance [place]
== END 2024-07-31 11:39 | disposition home or self-care (01) ==
LOC: HO.HMCH 10:47
PROVIDERS: PCP Physician Assistant; Visit Provider Physician Assistant
DX: I48.19 Other persistent atrial fibrillation (principal); I10 Essential (primary) hypertension; L29.9 Pruritus, unspecified; N18.30 Chronic kidney disease, stage 3 unspecified

== ENCOUNTER → 2024-07-31 10:46 | Outpatient (BNVA) | payer MEDICARE, SELFPAY | PROVIDERS: PCP Physician Assistant; Visit Provider Physician Assistant | DX: I48.19 Other persistent atrial fibrillation (principal); I12.9 Hypertensive chronic kidney disease with stage 1 through stage 4 chronic kidney disease, or unspecified chronic kidney disease; N18.30 Chronic kidney disease, stage 3 unspecified; L29.9 Pruritus, unspecified; Z79.01 Long term (current) use of anticoagulants; Z13.30 Encounter for screening examination for mental health and behavioral disorders, unspecified; Z13.31 Encounter for screening for depression | CPT/HCPCS: 96127; 99212 ==

== ENCOUNTER 2024-11-05 14:04 | Outpatient (AMB) | payer MEDICARE, SELFPAY ==
--- NOTE | 2024-11-05 14:12 | A.OFFPC_ITS ---
Vital Signs 11/05/24 14:13 11/05/24 14:42 Height 5 ft 8 in Weight 129 lb 4 oz BMI 19.7 BP 140/90 H 150/80 H Blood Pressure Location Lt brachial Position Sitting Pulse 81 Pulse Source Pulse Oximeter Temp 97.3 F Temp Source Temporal Artery Scan Pulse Oximetry (%) 95 Oxygen Delivery Method Room Air Intake Visit Reasons: 3 month f/u Intake Note: Patient is here to follow up on CKD, Afib, HTN. Flap Lining Binder Required: Yes Flap Lining Binder Language: Molding Machine Setter Name: ID # [id number] Information Interpreted: non-clinical & clinical Editor Managing Newspaper: Not Required per policy Accompanied by: Self / Same As Patient Allergies No Known Allergies Allergy (Verified 11/05/24 14:28) Medication List - Last Reconciled 11/05/24 by Edin Francis PA-C apixaban (Eliquis) 2.5 mg PO BID atorvastatin 40 mg PO BEDTIME blood pressure test kit-medium As directed carvedilol 25 mg PO BID ferrous sulfate 325 mg PO DAILY 30 days finasteride 5 mg PO DAILY 90 days hydralazine 10 mg PO BID hydrocortisone 1% (Cortisone (hydrocortisone)) 1 appl topical BID PRN 15 days lisinopril 10 mg PO DAILY 90 days mirtazapine 15 mg PO BEDTIME 30 days tamsulosin 0.4 mg PO DAILY triamcinolone acetonide 0.025% 1 appl topical DAILY 30 days Tobacco use date assessed: 11/05/24 Fall risk assessment: No Falls in past year Last assessed Fall Risk: 11/05/24 Dental Screening Dental Screen Date: 07/31/24 HPI 3 month f/u HPI Details Patient is a 79-year-old male here today for follow-up visit. Patient has a past medical history significant for AFib, CVA, CKD-3, hypertension, Patient is a a fairly poor historian Concern--> has not has lost a bit more weight since last office visit, he does admit to a low appetite. Will try appetite stimulant medication. Unclear if he is using mirtazapine .. CKD: Most recent renal functions indicating a low GFR , he is on renally dosed Eliquis at this time. Will continue to follow renal function and avoid any nephrotoxins. .. AFib: Patient continues on carvedilol and renally dosed Eliquis. Continues to follow [facility]. .. Hypertension: Blood pressure today in office elevated and he reports he is compliant with using carvedilol and hydralazine twice a day. 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 Mother Cancer Sister Cancer Other Mental health disorder Social History Household Members: None Housing: Apartment Do you presently have visiting nurse or other home services: No Alcohol intake: unknown Patient Tobacco Use Status: Never used Tobacco Tobacco use type: Cigarette e-Cigarette/Vaping Use: Never Used Second Hand Smoke Exposure: No service: No Current occupational status: unemployed and disabled Cognitive needs: No Hearing needs: No Vision needs: No Questionnaire Thrive Questionnaire Date Thrive assessed: 07/31/24 I am a: Patient What is your living situation today?: I have a steady place to live Within the past 12 months, did the food you bought not last and you didn't have the money to get more?: Never true Within the past 12 months, did you worry whether your food would run out before you got money to buy more?: Never true Do you have trouble paying for medicines?: No Do you have trouble getting transportation to medical appointments?: No Do you have trouble paying your heating and electricity bill?: No Do you have trouble taking care of your child, family member or friend?: No Do you have trouble with day-to-day activities such as bathing, preparing meals, shopping, managing finances, etc.?: No Are you currently unemployed and looking for a job?: Yes Are you interested in more education?: No Please select the resources that you would like help with: None Currently or been in a relationship where the following occur: No concerns reported THRIVE Score: 0 CHELA-7 AMB Questionnaire CHELA-7 Date CHELA - 7 assessed: 07/31/24 Source: Developed by Drs. Tuan Estrella, Cassy Vu, Bartolo Manzo and colleagues, with an educational anabel from [employer]. Review of Systems Const Denies headache(s) Eyes Denies loss of vision ENT Denies vertigo, Denies dizziness, Denies headache(s) and Denies sore throat Card Denies chest pain, Denies leg edema and Denies lightheadedness Resp Denies cough, Denies hemoptysis and Denies wheezing GI Denies abdominal pain, Denies melena, Denies constipation, Denies diarrhea and Denies vomiting Denies dysuria, Denies urinary frequency and Denies urinary urgency Musc Denies arthralgias, Denies joint swelling, Denies numbness and Denies tingling Neuro Denies Abnormal speech present, Denies behavioral changes, Denies vertigo, Denies dizziness, Denies headache(s), Denies loss of vision, Denies memory loss, Denies numbness and Denies tingling Psych Denies anxiety, Denies behavioral changes, Denies depression, Denies memory loss and Denies panic attacks Garfield/Lymph Denies easy bleeding and Denies easy bruising Aller/Immun Denies wheezing Physical exam (Primary Care) Vital Signs: Last Vital Signs Temp 97.3 F 11/05/24 14:13 Pulse 81 11/05/24 14:13 BP 150/80 H 11/05/24 14:42 Pulse Ox 95 11/05/24 14:13 Oxygen Delivery Method Room Air 11/05/24 14:13 BMI result Body Mass Index 19.7 Tobacco/Smoking Status: Tobacco use Status Tobacco use date assessed 11/05/24 11/05/24 14:16 Patient Tobacco Use Status Never used Tobacco 11/05/24 14:16 Tobacco use type Cigarette 11/05/24 14:16 e-Cigarette/Vaping Use Never Used 11/05/24 14:16 Thrive Assessment: Date of Thrive Assessment Date Thrive assessed 07/31/24 11/05/24 14:16 Currently or been in a relationship where the following occur: No concerns reported Const General: healthy appearing, no acute distress, alert and awake Nutritional Appearance: well nourished Orientation/consciousness: oriented to person, oriented to place and oriented to time HENMT Ears: TM's normal bilaterally General nose exam: Normal nasal mucous membranes and turbinates present Eyes Conjunctivae: conjunctivae normal Sclerae: sclerae normal Pupils: Equal, round and reactive pupils present Neck Neck: Yes no lymphadenopathy and Yes no JVD Thyroid: Thyroid normal Carotids: no bruits Resp Effort & Inspection: normal respiratory effort and not tachypneic Auscultation: no crackles, no rales, no rhonchi and no wheezes Cardio Rate: regular rate Rhythm: regular rhythm Heart sounds: no murmurs and normal S1 and S2 GI Palpation (GI): Soft to palpation, nontender, no hepatomegaly and no splenomegaly Auscultation: normal bowel sounds Skin General skin exam: no rashes or lesions noted and dry skin Neuro General: oriented to person, oriented to place and oriented to time Cranial nerves: Yes Equal, round and reactive pupils present Speech: No Abnormal speech present Gait exam (Neuro): Normal gait present Motor exam (neuro): no tremor noted Extrem Right upper extremity: full ROM Left upper extremity: full ROM Right lower extremity: full ROM; no edema Left lower extremity: full ROM; no edema Psych Mental Status: mental status grossly normal Speech and movement: Normal speech and movement present Affect: normal affect Attitude: cooperative Thought process: Normal thought process present Coding Level of Care Code Est Pt Level 4 (03917) Diagnoses Persistent atrial fibrillation I48.19 Atrial fibrillation type: persistent (not longstanding) Primary hypertension I10 Hypertension type: primary hypertension Stage 3 chronic kidney disease, unspecified whether stage 3a or 3b CKD N18.30 Chronic kidney disease stage 3 subtype: unspecified whether 3a or 3b 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 He continues on renally dosed Eliquis and carvedilol for rate control. Still appears to be in AFib here in office. He denies any chest discomfort, dizziness or syncopal episodes. (2) HTN (hypertension): Code(s): I10 - Essential (primary) hypertension Category: Medical Qualifiers: Hypertension type: primary hypertension Qualified Code(s): I10 - Essential (primary) hypertension Plan: Patient's blood pressure elevated today in office. We have added on lisinopril 10 mg for better blood pressure control. Offered patient paper Rx for blood pressure cuff kit to do home blood pressure monitoring though he declines at this time. Goal blood pressures to be below 140/90 (3) CKD (chronic kidney disease) stage 3, GFR 30-59 ml/min: Code(s): N18.30 - Chronic kidney disease, stage 3 unspecified Category: Medical Qualifiers: Chronic kidney disease stage 3 subtype: unspecified whether 3a or 3b Qualified Code(s): N18.30 - Chronic kidney disease, stage 3 unspecified Plan: Patient's renal function indicates chronic kidney disease, will try to avoid any nephrotoxins (4) Stroke: Code(s): I63.9 - Cerebral infarction, unspecified Category: Medical Qualifiers: CVA mechanism: thrombosis Precerebral and cerebral artery: other cerebral artery Qualified Code(s): I63.39 - Cerebral infarction due to thrombosis of other cerebral artery Plan: Patient has suffered a stroke in 2022. Continues on anticoagulation and beta- tomas. Blood pressure today in office slightly elevated, unclear if he is consistent with the use of his lisinopril. (5) Loss of appetite: Code(s): R63.0 - Anorexia Category: Medical Plan: Patient has lost a bit of weight since last office visit. He does report reduced appetite. Have tried mirtazapine though unclear if he is using this medication on a nightly basis. Will supply patient with appetite stimulant medication to help him with his appetite. Medications: New cyproheptadine 4 mg PO BID 60 tabs 3RF stimulate appetite 30 days R63.0 - Anorexia Refilled apixaban (Eliquis) 2.5 mg PO BID 60 tabs 3RF I48.19 - Other persistent atrial fibrillation
[2024-11-05 14:13] VITALS: BP 140/90; PULSE 81; TEMP 36.3; O2SAT 95; BMI 19.7
[2024-11-05 14:42] VITALS: BP 150/80
--- OUTSIDE RECORDS SUMMARY | 2024-11-05 15:19 | XMS_ITS | Clinical Summary ---
Author Organization [facility] Facility Address [address] [place] [address] Care Team Providers Care Facilities Director Name Role Phone Unavailable Primary Care Provider [...] Pneumococcal Vaccine: 50+ Ye ars (1 of 1 - PCV) 02/24/1996 Influenza Vaccine (#1) 2024 Hepatitis B Vaccine Aged Out No longe r eligible based on patient's age to complete this topic Insurance [place]
== END 2024-11-05 14:46 | disposition home or self-care (01) ==
LOC: HO.HMCH 14:04
PROVIDERS: PCP Physician Assistant; Visit Provider Physician Assistant
DX: I48.19 Other persistent atrial fibrillation (principal); I10 Essential (primary) hypertension; N18.30 Chronic kidney disease, stage 3 unspecified; I63.39 Cerebral infarction due to thrombosis of other cerebral artery; R63.0 Anorexia

== ENCOUNTER → 2024-11-05 14:04 | Outpatient (BNVA) | payer MEDICARE, SELFPAY | PROVIDERS: PCP Physician Assistant; Visit Provider Physician Assistant | DX: I12.9 Hypertensive chronic kidney disease with stage 1 through stage 4 chronic kidney disease, or unspecified chronic kidney disease (principal); N18.30 Chronic kidney disease, stage 3 unspecified; I48.19 Other persistent atrial fibrillation; R63.0 Anorexia; Z79.01 Long term (current) use of anticoagulants; Z86.73 Personal history of transient ischemic attack (TIA), and cerebral infarction without residual deficits | CPT/HCPCS: 99212 ==

== ENCOUNTER 2024-12-24 10:17 | Outpatient (AMB) | payer MEDICARE, SELFPAY ==
--- NOTE | 2024-12-24 10:37 | A.OFFVIS_ITS ---
Vital Signs 12/24/24 10:38 Height 5 ft 8 in Weight 134 lb 7.712 oz BMI 20.4 BP 146/70 H Blood Pressure Location Lt brachial Position Sitting Pulse 59 Intake Visit Reasons: 6 mth f/up Intake Note: 6 month follow-up feeling ok E Business Specialist Required: Yes E Business Specialist Services: E Business Specialist Present E Business Specialist Name: [facility] [place] Allergies No Known Allergies Allergy (Verified 11/05/24 14:28) Medication List - Last Reconciled 12/24/24 by Madeleine Hernandez NP-C apixaban (Eliquis) 2.5 mg PO BID atorvastatin 40 mg PO BEDTIME blood pressure test kit-medium As directed carvedilol 25 mg PO BID cyproheptadine 4 mg PO BID 30 days ferrous sulfate 325 mg PO DAILY 30 days finasteride 5 mg PO DAILY 90 days hydralazine 10 mg PO BID hydrocortisone 1% (Cortisone (hydrocortisone)) 1 appl topical BID PRN 15 days lisinopril 10 mg PO DAILY 90 days mirtazapine 15 mg PO BEDTIME 30 days tamsulosin 0.4 mg PO DAILY triamcinolone acetonide 0.025% 1 appl topical DAILY 30 days HPI HPI 6 mth f/up: Details: Gui is a 79-year-old male with past medical history of hypertension, hyperlipidemia, chronic atrial fibrillation, right bundle branch block, bifascicular block, nonischemic cardiomyopathy, CVA who presents for follow-up. Today he reports that he has shortness of breath at times with activity. He is again asking for a pump . No PND, orthopnea. He does have leg edema which he says is not new. No chest discomfort brought on by physical activity. He admits to having chest soreness with palpation and when he is laying down. No heart palpitations, lightheadedness, presyncope, syncope, falls. He does have difficulty with his speech from prior CVA. He denies any bleeding issues. He lives alone and manages his medications. He did not take meds yet this morning due to this appointment today. He tells me he will get lab work done tomorrow. Certified language interpreter used. 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 Mother Cancer Sister Cancer Other Mental health disorder Social History Household Members: None Housing: Apartment Do you presently have visiting nurse or other home services: No Alcohol intake: unknown Patient Tobacco Use Status: Never used Tobacco Tobacco use type: Cigarette e-Cigarette/Vaping Use: Never Used Second Hand Smoke Exposure: No service: No Current occupational status: unemployed and disabled Cognitive needs: No Hearing needs: No Vision needs: No Review of Systems Const All systems reviewed & are unremarkable except as noted in HPI and below Denies chills, Denies fatigue, Denies fever(s), Denies frequent falls, Denies weakness, Denies weight gain and Denies weight loss ENT Denies dizziness Card Denies chest pain, Denies leg edema, Denies lightheadedness, Denies palpitations, Denies dyspnea, Reports dyspnea on exertion (at times), Denies orthopnea and Denies other (loss of consciousness) Resp Denies cough, Denies dyspnea and Reports dyspnea on exertion (at times) GI Denies hematochezia and Denies change in stool character Musc Denies abnormal gait, Denies muscle weakness, Denies numbness, Denies radiating pain into limb and Denies tingling Neuro Denies abnormal gait, Denies dizziness, Denies frequent falls, Denies numbness, Denies tingling and Denies weakness Endo Denies fatigue and Denies palpitations Physical Exam Vital Signs: Last Vital Signs Pulse 59 12/24/24 10:38 BP 146/70 H 12/24/24 10:38 BMI result Body Mass Index 20.4 Const General: cooperative, healthy appearing, comfortable and no acute distress Orientation/consciousness: patient oriented x3 Neck Neck: Yes normal visual inspection and Yes no JVD Resp Effort & Inspection: normal respiratory effort Auscultation: clear to auscultation bilaterally, no rales, no rhonchi and no wheezes Cardio Jugular venous distension: no JVD Rate: regular rate Rhythm: abnormal rhythm Heart sounds: S1 normal heart sound present, S2 normal heart sound present, no murmurs and no rubs Neuro General: patient oriented x3 Extrem Other: +1-2 ankle edema with sock markings General: Yes normal to inspection and No calf tenderness Psych Appearance: grossly normal Mental Status: mental status grossly normal Speech and movement: Normal speech and movement present Assessment & Plan Assessment & Plan (1) Afib: Code(s): I48.91 - Unspecified atrial fibrillation Category: Medical Qualifiers: Atrial fibrillation type: persistent (not longstanding) Qualified Code(s): I48.19 - Other persistent atrial fibrillation Plan: History of chronic atrial fibrillation that is treated with heart rate control he is on carvedilol. Last Holter monitor done 07/2021 showing good heart rate control. His last EKG does show bifascicular block. Heart rate on exam 59 today. Will check a Holter to ensure good rate control and no significant pauses or other arrhythmia. He is on low-dose Eliquis for anticoagulation, which is appropriate dose for his weight and creatinine. He due for labs, orders are in place and he was instructed to obtain. Tells me he will have them done tomorrow. (2) Cardiomyopathy: Code(s): I42.9 - Cardiomyopathy, unspecified Category: Medical Qualifiers: Cardiomyopathy type: unspecified Qualified Code(s): I42.9 - Cardiomyopathy, unspecified Plan: History of nonischemic cardiomyopathy without heart failure admissions. EF has been as low as 25-30%, global hypokinesis. Last echocardiogram 07/17/2023 showed EF 45-50%, mild LVH, moderately reduced RV systolic function, early mild aortic stenisis. A - Nuclear stress test done 07/19/2023 shows a basal inferior lateral infarct, no evidence of ischemia. This finding suggests ischemic component to his cardiomyopathy. On exam he does have some ankle edema, otherwise not fluid overloaded. Will check a pro BNP, CMP. Will update echo prior to next visit. Can you carvedilol, low-dose lisinopril. He does have known CKD with last creatinine 1.7. Repeat labs are pending. He is not on diuretics at this time. Reviewed signs and symptoms of heart failure with him in the need for low-salt diet and strict med compliance. (3) Bifascicular block: Code(s): I45.2 - Bifascicular block Category: Medical Plan: Noted on EKG, not new. Checking Holter as above (4) HTN (hypertension): Code(s): I10 - Essential (primary) hypertension Category: Medical Qualifiers: Hypertension type: primary hypertension Qualified Code(s): I10 - Essential (primary) hypertension Plan: Goal < 130/80. Elevated today but he states he did not take medications yet this morning. No med changes made at this time. Continue carvedilol, lisinopril, hydralazine. (5) RBBB: Code(s): I45.10 - Unspecified right bundle-branch block Category: Medical Plan: Present on EKGs Plan I discussed with the patient the importance of managing his cardiovascular health, including the need for an echocardiogram to monitor heart function. We reviewed his medication regimen and emphasized the importance of adherence, especially on appointment days. I advised reducing salt intake to manage peripheral edema and blood pressure. Orders: Orders NT Pro B Type Natriuretic Pept Today I10 - Essential (primary) hypertension, I42.9 - Cardiomyopathy, unspecified CA echo transthoracic complete 3 Months I42.9 - Cardiomyopathy, unspecified Lipid Panel Today I10 - Essential (primary) hypertension, I42.9 - Cardiomyopathy, unspecified ECG 3 day holter monitor Today I48.19 - Other persistent atrial fibrillation Patient Instructions: - Take all prescribed medications daily, even on appointment days. - Reduce salt intake to help manage swelling and blood pressure. - Schedule and complete Holter monitor and echocardiogram as planned. - Follow up in a few months for reassessment. Patient was informed and verbally consented to the use of an ambient scribe for clinic note documentation during this visit. Visit time spent on chart review, interview, assessment, orders, documentation. Coding Level of Care Code Est Pt Level 4 (15370) Complex EM visit Add On G2211 Diagnoses Persistent atrial fibrillation I48.19 Atrial fibrillation type: persistent (not longstanding) Cardiomyopathy, unspecified type I42.9 Cardiomyopathy type: unspecified Bifascicular block I45.2 Primary hypertension I10 Hypertension type: primary hypertension RBBB I45.10 Time Spent (min) 30
[2024-12-24 10:38] VITALS: BP 146/70; PULSE 59; BMI 20.4
--- OUTSIDE RECORDS SUMMARY | 2024-12-24 12:09 | XMS_ITS | Clinical Summary ---
Author Organization [facility] Facility Address [address] [place] [address] Care Team Providers Care Foundry Patternmaker Name Role Phone Unavailable Primary Care Provider [...]
== END 2024-12-24 11:28 | disposition home or self-care (01) ==
LOC: HO.HCS 10:18
PROVIDERS: PCP Physician Assistant; Visit Provider Nurse Practitioner Family
DX: I48.19 Other persistent atrial fibrillation (principal); I42.9 Cardiomyopathy, unspecified; I45.2 Bifascicular block; I10 Essential (primary) hypertension; I45.10 Unspecified right bundle-branch block
CPT/HCPCS: 99214; G2211

== ENCOUNTER → 2024-12-24 10:17 | Outpatient (BNVA) | payer MEDICARE, SELFPAY | PROVIDERS: PCP Physician Assistant; Visit Provider Nurse Practitioner Family | DX: I10 Essential (primary) hypertension (principal); I48.19 Other persistent atrial fibrillation; I42.9 Cardiomyopathy, unspecified; I45.10 Unspecified right bundle-branch block; I45.2 Bifascicular block | CPT/HCPCS: 99212 ==

== ENCOUNTER 2024-12-25 09:17 | Outpatient (REF) | payer MEDICARE, SELFPAY ==
[2024-12-25 10:21] LABS: Cholesterol 110 mg/dL (<200); HDL Cholesterol 37 mg/dL (>40); Triglycerides 42 mg/dL (<150)
== END 2024-12-25 09:18 | disposition home or self-care (01) ==
LOC: HO.LAB 09:17
PROVIDERS: PCP Physician Assistant; Visit Provider Nurse Practitioner Family
DX: I11.9 Hypertensive heart disease without heart failure (principal); I43 Cardiomyopathy in diseases classified elsewhere
CPT/HCPCS: 36415; 80061; 83880